=== PATIENT | male | born 1945 | race Caucasian/White ===

== ENCOUNTER 2017-09-13 18:35 | Inpatient (IN) | payer MEDICARE, OTHER ==
[~2017-09-13] VITALS: Ht 177.8 cm; Wt 86.2 kg
--- NOTE | 2017-09-13 19:45 | Emergency Room Report ---
History of Present Illness General Chief Complaint: Altered Level of Consciousness Source: Family Member, Medical Record (Michelle Henderson M.D.) Present Illness HPI 72-year-old male, unknown past medical history, coming from assisted living facility, with his friend, for altered mental status. Friend is not giving much information. He just brought the medication list which doesn't patient likely has hyperlipidemia and hypertension. No other history is able to be obtained as patient not answering any questions (Michelle Henderson M.D.) Allergies: Coded Allergies: PENICILLINS (Verified Allergy, Unknown, 09/13/17) Patient History Past Medical History: see triage record Past Surgical History: none Pertinent Family History: none Reviewed Nursing Documentation: PMH: Agreed; PSxH: Agreed (Michelle Henderson M.D. ) Nursing Documentation-PMH Hx Hypertension: Yes (Michelle Henderson M.D.) Review of Systems All Other Systems: limited - pt not answering any questions, altered (Michelle Henderson M.D.) Physical Exam Vital Signs Date Time Temp Pulse Resp B/P (MAP) Pulse Ox O2 Delivery O2 Flow Rate FiO2 09/13/17 18:45 103.3 116 20 154/78 89 Room Air 103.3 Sp02 EP Interpretation: reviewed, normal General Appearance: moderate distress, other - awake, lethargic, not answering questions Head: normocephalic, atraumatic Eyes: bilateral eye normal inspection, bilateral eye PERRL, bilateral eye EOMI ENT: normal ENT inspection, normal pharynx, normal voice, moist mucus membranes Neck: normal inspection, full range of motion, supple Respiratory: normal inspection, lungs clear, normal breath sounds, no respiratory distress, no retraction, no wheezing, speaking full sentences, chest symmetrical Cardiovascular #1: normal inspection, regular rate, rhythm, no edema, normal capillary refill Cardiovascular #2: 2+ radial (R), 2+ radial (L) Gastrointestinal: non-distended, no rebound, other - no grimace deep palpation Genitourinary: no CVA tenderness Musculoskeletal: other - FROM all ext Neurologic: other - aox2 but not answering questions in detailed manner, moving all four ext spont Psychiatric: other Skin: normal inspection, normal color, no rash, warm/dry, well hydrated, normal turgor (Michelle Henderson M.D.) Medical Decision Making Diagnostic Impression: Primary Impression: Altered level of consciousness Additional Impressions: Elevated troponin Encephalopathy acute Cirrhosis Acute febrile illness ER Course 72-year-old male with altered mental status DDX: Dehydrational actually disturbance hypovolemia ACS UTI pneumonia intracranial bleed or stroke Plan: Obtain labs, ua, EKG, CXR CT head ER course: Patient has been monitored during ED stay, HD stable he has not been febrile during his stay he is aox2, moving all ext spont, when asked if anything is bothering him, he says "nothing, I am not in pain" he has been sleeping comfortably I spoke with patient's sister who has been made aware that patient is in the ED Pt with slightly wide mediastinum on XR, will perform CTA chest Signed out to Dr Doan to fu CTA Disposition: Patient is to be admitted to Dr Simeon Please note that this Emergency Department Report was dictated using Springfretted instrument repairer technology software, occasionally this can lead to erroneous entry secondary to interpretation by the dictation equipment. EKG Diagnostic Results EP Interpretation: Yes Rate: Tachycardic Rhythm: NSR ST Segments: T-wave flattening in V6 ASA given to patient: No Rhythm Strip EP Interpretation: Yes Rate: 115 Rhythm: NSR, no PVCs, no ectopy Chest X-ray CXR: Ordered: Yes 1 view Indication: Altered mental status EP interpretation: Yes Interpretation: Cardiomegaly, slight widened mediastinum Impression: Cardiomegaly, slight widened mediastinum Electronically signed by Michelle Henderson MD (Michelle Henderosn M.D.) ER Course CTA of chest showed no evidence of pulmonary embolism, endovascular stent present, cholelithiasis. Patients CT and laboratory findings were discussed with Dr. Simeon. Labs Test 09/13/17 20:10 09/13/17 20:45 09/13/17 21:55 Urine Color Yesika Urine Appearance Slightly cloudy Urine pH 5 (4.5-8.0) Urine Specific [place] 1.025 (1.005-1.035) Urine Protein 3+ (NEGATIVE) Urine Glucose (UA) Negative (NEGATIVE) Urine Ketones 2+ (NEGATIVE) Urine Occult Blood 5+ (NEGATIVE) Urine Nitrite Negative (NEGATIVE) Urine Bilirubin 1+ (NEGATIVE) Urine Ictotest Positive Urine Urobilinogen 1 MG/DL (0.0-1.0) Urine Leukocyte Esterase 1+ (NEGATIVE) Urine RBC 5-10 /HPF (0 - 0) Urine WBC 0-2 /HPF (0 - 0) Urine Squamous Epithelial Cells None /LPF (NONE/OCC) Urine Amorphous Sediment Moderate /LPF (NONE) Urine Bacteria Few /HPF (NONE) Urine Opiates Screen Negative (NEGATIVE) Urine Barbiturates Screen Negative (NEGATIVE) Phencyclidine (PCP) Screen Negative (NEGATIVE) Urine Amphetamines Screen Negative (NEGATIVE) Urine Benzodiazepines Screen Negative (NEGATIVE) Urine Cocaine Screen Negative (NEGATIVE) Urine Marijuana (THC) Screen Negative (NEGATIVE) White Blood Count 11.4 K/UL (4.8-10.8) Red Blood Count 3.57 M/UL (4.70-6.10) Hemoglobin 11.9 G/DL (14.2-18.0) Hematocrit 34.8 % (42.0-52.0) Mean Corpuscular Volume 98 FL (80-99) Mean Corpuscular Hemoglobin 33.2 PG (27.0-31.0) Mean Corpuscular Hemoglobin Concent 34.0 G/DL (32.0-36.0) Red Cell Distribution Width 16.1 % (11.6-14.8) Platelet Count 91 K/UL (150-450) Mean Platelet Volume 5.9 FL (6.5-10.1) Neutrophils (%) (Auto) 86.9 % (45.0-75.0) Lymphocytes (%) (Auto) 5.0 % (20.0-45.0) Monocytes (%) (Auto) 7.5 % (1.0-10.0) Eosinophils (%) (Auto) 0.0 % (0.0-3.0) Basophils (%) (Auto) 0.6 % (0.0-2.0) Prothrombin Time 15.4 SEC (9.30-11.50) Prothromb Time International Ratio 1.5 (0.9-1.1) Activated Partial Thromboplast Time 33 SEC (23-33) Sodium Level 136 MMOL/L (136-145) Potassium Level 3.7 MMOL/L (3.5-5.1) Chloride Level 104 MMOL/L (98-107) Carbon Dioxide Level 21 MMOL/L (21-32) Anion Gap 11 mmol/L (5-15) Blood Urea Nitrogen 18 mg/dL (7-18) Creatinine 1.2 MG/DL (0.55-1.30) Estimat Glomerular Filtration Rate 59.9 mL/min (>60) Glucose Level 122 MG/DL (74-106) Calcium Level 8.5 MG/DL (8.5-10.1) Total Bilirubin 4.5 MG/DL (0.2-1.0) Direct Bilirubin 1.4 MG/DL (0.0-0.3) Aspartate Amino Transf (AST/SGOT) 72 U/L (15-37) Alanine Aminotransferase (ALT/SGPT) 33 U/L (12-78) Alkaline Phosphatase 124 U/L (46-116) Total Creatine Kinase 136 U/L (26-308) Troponin I 0.173 ng/mL (0.000-0.056) Pro-B-Type Natriuretic Peptide 763 pg/mL (0-125) Total Protein 7.2 G/DL (6.4-8.2) Albumin 2.2 G/DL (3.4-5.0) Globulin 5.0 g/dL Albumin/Globulin Ratio 0.4 (1.0-2.7) Salicylates Level < 0.2 ug/mL (2.8-20) Acetaminophen Level < 2 MCG/ML (10-30) Serum Alcohol < 3 mg/dL Lactic Acid Level 7.20 mmol/L (0.66-2.22) (Bk Doan MD) Last Vital Signs Date Time Temp Pulse Resp B/P (MAP) Pulse Ox O2 Delivery O2 Flow Rate FiO2 09/13/17 18:45 103.3 116 20 154/78 89 Room Air 103.3 (Michelle Henderson M.D.) Disposition: ADMITTED INPATIENT Condition: Serious Referrals: NOT CHOSEN BIRGTI/,REFERRING (PCP) Michelle Henderson M.D. Sep 13, 2017 19:45 Bk Doan MD Sep 14, 2017 04:15
[2017-09-13 20:30] LABS: APPEARANCE,URINE SLIGHTLY CLOUDY; BILIRUBIN, URINE 1+ (NEGATIVE); GLUCOSE, URINE (UA) NEGATIVE (NEGATIVE); KETONES,URINE 2+ (NEGATIVE); LEUKOCYTE ESTERASE ,URINE 1+ (NEGATIVE); NITRITE,URINE NEGATIVE (NEGATIVE); PH,URINE 5 (4.5-8.0); PROTEIN,URINE 3+ (NEGATIVE); UROBILINOGEN,URINE 1 MG/DL (0.0-1.0)
[2017-09-13 20:33] LABS: COLOR,URINE AMBER
[2017-09-13 21:10] VITALS: BP 147/76
[2017-09-13 21:13] LABS: HEMATOCRIT 34.8 % (42.0-52.0); HEMOGLOBIN 11.9 G/DL (14.2-18.0); MEAN CORPUSCULAR VOLUME 98 FL (80-99); PLATELET COUNT 91 K/UL (150-450); RED BLOOD COUNT 3.57 M/UL (4.70-6.10); RED CELL DISTRIBUTION WIDTH 16.1 % (11.6-14.8); WHITE BLOOD COUNT 11.4 K/UL (4.8-10.8)
[2017-09-13 21:14] LABS: BASOPHILS % (AUTO) 0.6 % (0.0-2.0); MONOCYTES % (AUTO) 7.5 % (1.0-10.0); NEUTROPHILS % (AUTO) 86.9 % (45.0-75.0)
[2017-09-13 21:25] LABS: ANION GAP 11 mmol/L (5-15); BLOOD UREA NITROGEN 18 mg/dL (7-18); CALCIUM 8.5 MG/DL (8.5-10.1); CARBON DIOXIDE 21 MMOL/L (21-32); CHLORIDE 104 MMOL/L (98-107); CREATININE 1.2 MG/DL (0.55-1.30); POTASSIUM 3.7 MMOL/L (3.5-5.1); SODIUM 136 MMOL/L (136-145)
[2017-09-13 21:30] LABS: INR 1.5 (0.9-1.1)
[2017-09-13] MEDS ORDERED: ZOFRAN4 M3 ORAL (21:37)
[2017-09-13] MEDS ORDERED: ATORVASTATIN CA40 MG ORAL (21:37)
[2017-09-13] MEDS ORDERED: OMEPRAZOLE20 M2 ORAL (21:37)
[2017-09-13] MEDS ORDERED: POLYETHYLENE GL17 GM ORAL (21:37)
[2017-09-13] MEDS ORDERED: OXYCODONE HCL5 M2 ORAL (21:37)
[2017-09-13] MEDS ORDERED: LISINOPRIL10 MG ORAL (21:37)
[2017-09-13] MEDS ORDERED: GABAPENTIN600 MG ORAL (21:37)
[2017-09-13] MEDS ORDERED: FLUTICASONE PRO16 G1 NASAL (21:37)
[2017-09-13 21:40] LABS: ALANINE AMINOTRANSFERASE 33 U/L (12-78); ALBUMIN 2.2 G/DL (3.4-5.0); ALBUMIN/GLOBULIN RATIO 0.4 (1.0-2.7); ALKALINE PHOSPHATASE 124 U/L (46-116); ASPARTATE AMINO TRANSFERASE 72 U/L (15-37); BILIRUBIN,TOTAL 4.5 MG/DL (0.2-1.0); CREATINE KINASE 136 U/L (26-308)
[2017-09-13 21:41] LABS: BILIRUBIN,DIRECT 1.4 MG/DL (0.0-0.3)
[2017-09-13] MEDS ORDERED: Isovue-370 150ml vial INJ PRN ×2 (21:45→22:30)
[2017-09-13] MEDS ORDERED: Lactulose 20gm/30ml UDC ORAL ONE (22:30)
[2017-09-13] MEDS ORDERED: Sodium Chloride 500ML 500 ML IV ONE (23:00)
[2017-09-13 23:09] VITALS: BP 129/98
[2017-09-13] MEDS ORDERED: Acetaminophen 500mg (ES) tab ORAL ONE (23:15)
[2017-09-13] MEDS ORDERED: Ascorbic Acid 500mg tab ORAL ONE (23:15)
[2017-09-14] VITALS (8 sets, daily range): BP systolic 105–139; BP diastolic 55–75
[2017-09-14 08:21] LABS: HEMOGLOBIN 11.9 G/DL (14.2-18.0); MEAN CORPUSCULAR VOLUME 100 FL (80-99); PLATELET COUNT 80 K/UL (150-450); RED BLOOD COUNT 3.61 M/UL (4.70-6.10); WHITE BLOOD COUNT 9.6 K/UL (4.8-10.8)
[2017-09-14 08:58] LABS: ANION GAP 8 mmol/L (5-15); BLOOD UREA NITROGEN 19 mg/dL (7-18); CARBON DIOXIDE 25 MMOL/L (21-32); CHLORIDE 103 MMOL/L (98-107); CREATININE 1.2 MG/DL (0.55-1.30); POTASSIUM 3.9 MMOL/L (3.5-5.1); SODIUM 135 MMOL/L (136-145)
[2017-09-14 08:59] LABS: AMMONIA 27 umol/L (11-32)
[2017-09-14 09:08] LABS: ALANINE AMINOTRANSFERASE 32 U/L (12-78); ALBUMIN 2.1 G/DL (3.4-5.0); ALBUMIN/GLOBULIN RATIO 0.4 (1.0-2.7); ALKALINE PHOSPHATASE 107 U/L (46-116); ASPARTATE AMINO TRANSFERASE 77 U/L (15-37); BILIRUBIN,TOTAL 3.8 MG/DL (0.2-1.0)
[2017-09-14 09:09] LABS: BILIRUBIN,DIRECT 1.3 MG/DL (0.0-0.3)
--- NOTE | 2017-09-14 10:58 | Diagnostic Imaging Report ---
Indication: Altered mental status Technique: spiral acquisitions obtained through the brain. Angled axial and coronal 5 x 5 mm slices were reconstructed. No IV contrast utilized. Radiation dose was minimized using automated exposure control Total dose length product 1484.22 mGycm. CTDIvol(s) 70.38 mGy Comparison: none FINDINGS: No acute hemorrhage or edema. No mass effect or midline shift. There is age-related enlargement of the ventricles and extra axial CSF spaces. There is periventricular deep white matter ischemic change. Normal hawley-white differentiation. Visualized orbits are unremarkable. There is complete opacification of the right frontal sinus and the contiguous anterior ethmoid air cell. There is also sphenoid sinus disease on the right.. Intact calvarium. IMPRESSION: Chronic and age-related changes. Negative for acute intracranial bleed or mass effect Sinus disease This agrees with the preliminary interpretation provided overnight by [facility] telerad[facility] service. The CT scanner at [facility] is accredited by the [employer] and the scans are performed using protocols designed to limit radiation exposure to as low as reasonably achievable to attain images of sufficient resolution adequate for diagnostic evaluation
--- NOTE | 2017-09-14 10:59 | Diagnostic Imaging Report ---
Indication: Chest pain Technique: One view of the chest Comparison: none Findings: The heart is enlarged. The aorta is tortuous and ectatic. The lungs and pleural spaces are clear Impression: Cardiomegaly No acute process
--- NOTE | 2017-09-14 12:01 | History and Physical Report ---
DATE OF ADMISSION: 09/13/2017 HISTORY OF PRESENT ILLNESS: The patient basically is here because of altered mental status. The patient basically also is oriented x2 and also complaining of mild constipation. The patient also was febrile in the ER. He is admitted for possible urinary tract infection. The patient also was found to have a gallstone and stent in the abdominal aortic and bilateral iliac area. The patient apparently also has a history of cirrhosis and also being admitted for possible encephalopathy. The patient also has elevated bilirubin and borderline elevated troponin and low platelets and borderline LFTs. The patient denies shortness of breath. Denies cough. Denies nausea, vomiting, or diarrhea. Denies any abdominal pain. The patient is somewhat confused, possible encephalopathy, and need to rule out urinary tract infection and cannot get more reliable history from the patient. PAST MEDICAL HISTORY: Hypertension, neuropathy, hyperlipidemia, gastroesophageal reflux disease, chronic pain syndrome, constipation, and cirrhosis. PAST SURGICAL HISTORY: AAA repair. MEDICATIONS: Lipitor, , gabapentin, lisinopril, omeprazole, Zofran, and polyethylene glycol. ALLERGIES: Penicillin. FAMILY HISTORY: Noncontributory. SOCIAL HISTORY: Denies smoking, alcohol, or illicit drugs. REVIEW OF SYSTEMS: HEENT: Denies headaches. Denies any vision problems. RESPIRATORY: Denies shortness of breath. Denies cough. CARDIOVASCULAR: Denies chest pain. Denies orthopnea. GASTROINTESTINAL: Denies nausea, vomiting, or diarrhea. Does have constipation occasionally. EXTREMITY: He does have chronic pain syndrome, nothing acute. CENTRAL NERVOUS SYSTEM: No change in vision or speech pattern, but is more confused than his baseline. PHYSICAL EXAMINATION: VITAL SIGNS: Temperature 98.8, pulse is 94, and blood pressure 137/64. HEENT: PERRLA. NECK: Supple. No lymphadenopathy. CHEST: Clear to auscultation. GASTROINTESTINAL: Soft, nontender, and nondistended. ABDOMEN: Soft. No organomegaly. EXTREMITIES: 1+ edema. The patient has a slight rash on the right leg, which is apparently chronic. NEUROLOGIC: Generalized weakness. Oriented x2. Reflexes are equal on both sides. LABORATORY DATA: WBC of 11.4, hemoglobin 11.9, and platelets of 91,000. Sodium 137, potassium 3.7, chloride 104, BUN of 18, creatinine 1.2, and glucose 132. Lactic acid 5.5. Total bilirubin 4.7. AST of 72, ALT of 33, and alkaline phosphatase of 124. Troponin 0.173. WBCs in the urine 0 to 2. ASSESSMENT AND PLAN: 1. Encephalopathy. 2. Cirrhosis. 3. Elevated liver function tests. 4. Febrile in the ER. 5. The patient is currently DNR. 6. Borderline elevated troponin and borderline low platelets. 7. I have asked the following doctors to see the patient for the above-mentioned diagnoses and treatment. Namely, Dr. Barrientos, Dr. Woody, Dr. Hutchison, Dr. Parson, and Dr. Dolan for etiology of altered mental status as well as elevated troponin and possible urinary tract infection and also for the workup of the elevated LFTs. Julio C Ward M.D. DR: HASEEB JOB#: [id number] CC:
[2017-09-14] MEDS ORDERED: Vancomycin 1.5 GM/D5W 250ML IVPB ONE (12:30)
--- NOTE | 2017-09-14 13:07 | Cardiology Report ---
APPROVED REPORT EKG Measurement Heart [id number] Sinus tachycardia with premature atrial complexes Abnormal ECG
--- NOTE | 2017-09-14 13:39 | Consultation ---
History of Present Illness General Date patient seen: Sep 14, 2017 Chief Complaint: Altered Level of Consciousness Present Illness HPI 72-year-old male, past medical history,was bib friend from assisted living facility, for altered mental status. the pt was confused and disoriented in ER. the pt is more alert however still has waxing and waning of consciousness. the pt is forgetful however was able to provide hx and answer the questions Allergies: Coded Allergies: PENICILLINS (Verified Allergy, Unknown, 09/13/17) Medication History Scheduled Atorvastatin Calcium* (Atorvastatin Calcium*), 40 MG ORAL BEDTIME, (Reported) Fluticasone Propionate* (Fluticasone Propionate*), 1 SPRAY NASAL TWICE A DAY, ( Reported) Gabapentin* (Gabapentin*), 600 MG ORAL THREE TIMES A DAY, (Reported) Lisinopril* (Lisinopril*), 20 MG ORAL DAILY, (Reported) Omeprazole (Omeprazole), 20 MG ORAL DAILY, (Reported) Scheduled PRN Ondansetron* (Zofran*), 4 MG ORAL Q6H PRN for Nausea & Vomiting, (Reported) Oxycodone Hcl* (Oxycodone Hcl*), 5 MG ORAL Q8HR PRN for For Pain, (Reported) Polyethylene Glycol 3350* (Polyethylene Glycol 3350*), 17 GM ORAL DAILY PRN for Constipation, (Reported) Patient History Limited by: medical condition History Provided By: Patient, Medical Record, PMD Healthcare decision maker Sister Resuscitation status Do Not Resuscitate Advanced Directive on File No Past Medical/Surgical History Past Medical/Surgical History: (1) Cirrhosis (2) Encephalopathy acute (3) Acute febrile illness (4) Altered level of consciousness (5) Elevated troponin Review of Systems Psychiatric: Reports: anxiety Physical Exam General Appearance: no apparent distress - Didn't know the month , alert Last 24 Hour Vital Signs Date Time Temp Pulse Resp B/P (MAP) Pulse Ox O2 Delivery O2 Flow Rate FiO2 09/14/17 12:01 99.7 80 19 106/57 98 Room Air 99.7 09/14/17 08:04 98.9 98 19 105/63 94 Room Air 98.9 09/14/17 08:00 90 09/14/17 04:00 98.4 90 22 139/75 96 Room Air 98.4 09/14/17 04:00 86 09/14/17 03:30 98.8 94 20 130/56 96 Room Air 98.8 09/14/17 03:11 98.8 94 20 130/56 96 Room Air 98.8 09/14/17 01:34 99.8 09/14/17 01:33 99.8 83 24 123/55 97 Room Air 99.8 09/14/17 00:17 98.8 94 26 137/64 99 Room Air 98.8 09/13/17 23:31 102.2 09/13/17 23:09 102.2 110 15 129/98 97 Room Air 102.2 09/13/17 21:10 99.0 108 16 147/76 97 Room Air 99.0 09/13/17 18:45 103.3 116 20 154/78 89 Room Air 103.3 Intake and Output 09/13/17 09/14/17 19:00 07:00 Intake Total 1165 ml Output Total 220 ml Balance 945 ml Intake IV Total 1165 ml Output Urine Total 220 ml # Voids 1 Laboratory Tests Test 09/13/17 20:10 09/13/17 20:45 09/13/17 21:55 09/14/17 07:54 Urine Color Yesika Urine Appearance Slightly cloudy Urine pH 5 (4.5-8.0) Urine Specific [place] 1.025 (1.005-1.035) Urine Protein 3+ (NEGATIVE) H Urine Glucose (UA) Negative (NEGATIVE) Urine Ketones 2+ (NEGATIVE) H Urine Occult Blood 5+ (NEGATIVE) H Urine Nitrite Negative (NEGATIVE) Urine Bilirubin 1+ (NEGATIVE) H Urine Ictotest Positive Urine Urobilinogen 1 MG/DL (0.0-1.0) H Urine Leukocyte Esterase 1+ (NEGATIVE) H Urine RBC 5-10 /HPF (0 - 0) H Urine WBC 0-2 /HPF (0 - 0) Urine Squamous Epithelial Cells None /LPF (NONE/OCC) Urine Amorphous Sediment Moderate /LPF (NONE) H Urine Bacteria Few /HPF (NONE) Urine Opiates Screen Negative (NEGATIVE) Urine Barbiturates Screen Negative (NEGATIVE) Phencyclidine (PCP) Screen Negative (NEGATIVE) Urine Amphetamines Screen Negative (NEGATIVE) Urine Benzodiazepines Screen Negative (NEGATIVE) Urine Cocaine Screen Negative (NEGATIVE) Urine Marijuana (THC) Screen Negative (NEGATIVE) White Blood Count 11.4 K/UL (4.8-10.8) H 9.6 K/UL (4.8-10.8) Red Blood Count 3.57 M/UL (4.70-6.10) L 3.61 M/UL (4.70-6.10) L Hemoglobin 11.9 G/DL (14.2-18.0) L 11.9 G/DL (14.2-18.0) L Hematocrit 34.8 % (42.0-52.0) L 36.0 % (42.0-52.0) L Mean Corpuscular Volume 98 FL (80-99) 100 FL (80-99) H Mean Corpuscular Hemoglobin 33.2 PG (27.0-31.0) H 32.8 PG (27.0-31.0) H Mean Corpuscular Hemoglobin Concent 34.0 G/DL (32.0-36.0) 32.9 G/DL (32.0-36.0) Red Cell Distribution Width 16.1 % (11.6-14.8) H 16.0 % (11.6-14.8) H Platelet Count 91 K/UL (150-450) L 80 K/UL (150-450) L Mean Platelet Volume 5.9 FL (6.5-10.1) L 6.4 FL (6.5-10.1) L Neutrophils (%) (Auto) 86.9 % (45.0-75.0) H % (45.0-75.0) Lymphocytes (%) (Auto) 5.0 % (20.0-45.0) L % (20.0-45.0) Monocytes (%) (Auto) 7.5 % (1.0-10.0) % (1.0-10.0) Eosinophils (%) (Auto) 0.0 % (0.0-3.0) % (0.0-3.0) Basophils (%) (Auto) 0.6 % (0.0-2.0) % (0.0-2.0) Prothrombin Time 15.4 SEC (9.30-11.50) H Prothromb Time International Ratio 1.5 (0.9-1.1) H Activated Partial Thromboplast Time 33 SEC (23-33) Sodium Level 136 MMOL/L (136-145) 135 MMOL/L (136-145) L Potassium Level 3.7 MMOL/L (3.5-5.1) 3.9 MMOL/L (3.5-5.1) Chloride Level 104 MMOL/L (98-107) 103 MMOL/L (98-107) Carbon Dioxide Level 21 MMOL/L (21-32) 25 MMOL/L (21-32) Anion Gap 11 mmol/L (5-15) 8 mmol/L (5-15) Blood Urea Nitrogen 18 mg/dL (7-18) 19 mg/dL (7-18) H Creatinine 1.2 MG/DL (0.55-1.30) 1.2 MG/DL (0.55-1.30) Estimat Glomerular Filtration Rate 59.9 mL/min (>60) 59.9 mL/min (>60) Glucose Level 122 MG/DL (74-106) H 104 MG/DL (74-106) Lactic Acid Level 5.50 mmol/L (0.4-2.0) H 7.20 mmol/L (0.66-2.22) H 3.40 mmol/L (0.4-2.0) H Calcium Level 8.5 MG/DL (8.5-10.1) 8.0 MG/DL (8.5-10.1) L Total Bilirubin 4.5 MG/DL (0.2-1.0) H 3.8 MG/DL (0.2-1.0) H Direct Bilirubin 1.4 MG/DL (0.0-0.3) H 1.3 MG/DL (0.0-0.3) H Aspartate Amino Transf (AST/SGOT) 72 U/L (15-37) H 77 U/L (15-37) H Alanine Aminotransferase (ALT/SGPT) 33 U/L (12-78) 32 U/L (12-78) Alkaline Phosphatase 124 U/L (46-116) H 107 U/L (46-116) Total Creatine Kinase 136 U/L (26-308) Troponin I 0.173 ng/mL (0.000-0.056) Pro-B-Type Natriuretic Peptide 763 pg/mL (0-125) H Total Protein 7.2 G/DL (6.4-8.2) 7.0 G/DL (6.4-8.2) Albumin 2.2 G/DL (3.4-5.0) L 2.1 G/DL (3.4-5.0) L Globulin 5.0 g/dL 4.9 g/dL Albumin/Globulin Ratio 0.4 (1.0-2.7) L 0.4 (1.0-2.7) L Salicylates Level < 0.2 ug/mL (2.8-20) L Acetaminophen Level < 2 MCG/ML (10-30) L Serum Alcohol < 3 mg/dL Differential Total Cells Counted 100 Neutrophils % (Manual) 90 % (45-75) H Lymphocytes % (Manual) 8 % (20-45) L Monocytes % (Manual) 2 % (1-10) Eosinophils % (Manual) 0 % (0-3) Basophils % (Manual) 0 % (0-2) Band Neutrophils 0 % (0-8) Platelet Estimate Decreased L Platelet Morphology Normal Red Blood Cell Morphology Normal Ammonia 27 umol/L (11-32) Test 09/14/17 11:50 Lactic Acid Level 2.70 mmol/L (0.66-2.22) H Height (Feet): 5 Height (Inches): 10.00 Weight (Pounds): 190 Medications Current Medications Medications (Trade) Dose Ordered Sig/Zia Route PRN Reason Start Time Stop Time Status Last Admin Dose Admin Iopamidol (Isovue-370 150ml) 150 ml NOW PRN INJ Radiology Procedure 09/13/17 21:45 09/15/17 21:32 Iopamidol (Isovue-370 150ml) 150 ml NOW PRN INJ Radiology Procedure 09/13/17 22:30 Levofloxacin (Levaquin) 750 mg Q24H ORAL 09/14/17 20:00 09/21/17 19:59 Sodium Chloride 1,000 ml @ 65 mls/hr [id number] IV 09/14/17 05:00 10/14/17 04:59 09/14/17 05:00 Vancomycin HCl (Vanco rx to dose) 1 ea DAILY PRN MISC Per rx protocol 09/14/17 11:30 10/14/17 11:29 Vancomycin HCl/ Dextrose 250 ml @ 125 mls/hr ONCE ONCE IVPB 09/14/17 12:30 09/14/17 14:29 09/14/17 13:15 Vancomycin HCl/ Dextrose 250 ml @ 125 mls/hr Q24H IVPB 09/15/17 13:00 09/20/17 12:59 Assessment/Plan Assessment/Plan Encephalopathy improving Anxiety d/o -Yusuf Joy M.D. Sep 14, 2017 13:39
--- NOTE | 2017-09-14 14:06 | GI Initial Consult Note ---
History of Present Illness General Date patient seen: Sep 14, 2017 Time patient seen: 13:57 Reason for Hospitalization: Altered Level of Consciousness Referring physician: NINA Reason for Consultation: ABNORMAL LFTs Present Illness HPI 72-year-old male, unknown past medical history, coming from assisted living facility, with his friend, for altered mental status. Friend is not giving much information. He just brought the medication list which doesn't patient likely has hyperlipidemia and hypertension. No other history is able to be obtained as patient not answering any questions. GI consulted for abnormal LFTs, AMS. Pt seen, awake A&Ox4 NAD with no active s /sx of N/V/D. Patient normally seen at the [facility]. Presents today with mild anemia, thrombocytopenia, hyperbilirubinemia, elevated troponin levels, AST and lactic acid levels. The patient denies any ETOH use. States he has history of fatty liver. Normal ammonia levels. Unknown history of endoscopy / colonoscopy. Home Meds Reported Medications Ondansetron* (ZOFRAN*) 4 Mg Tablet, 4 MG ORAL Q6H PRN for Nausea & Vomiting, TAB 09/13/17 Polyethylene Glycol 3350* (POLYETHYLENE GLYCOL 3350*) 17 Gm Powd.pack, 17 GM ORAL DAILY PRN for Constipation, PACKET 09/13/17 Oxycodone Hcl* (OXYCODONE HCL*) 5 Mg Capsule, 5 MG ORAL Q8HR PRN for For Pain, # 30 CAP 0 Refills 09/13/17 Lisinopril* (LISINOPRIL*) 10 Mg Tablet, 20 MG ORAL DAILY, TAB 09/13/17 Gabapentin* (GABAPENTIN*) 600 Mg Tablet, 600 MG ORAL THREE TIMES A DAY, TAB 09/13/17 Atorvastatin Calcium* (ATORVASTATIN CALCIUM*) 40 Mg Tablet, 40 MG ORAL BEDTIME, TAB 09/13/17 Fluticasone Propionate* (FLUTICASONE PROPIONATE*) 16 Gm [place].susp, 1 SPRAY NASAL TWICE A DAY, #16 GM 09/13/17 Omeprazole (OMEPRAZOLE) 20 Mg Capsule.dr, 20 MG ORAL DAILY, CAP 09/13/17 Med list reviewed/reconciled: Yes Allergies: Coded Allergies: PENICILLINS (Verified Allergy, Unknown, 09/13/17) Patient History History Provided By: Patient, Medical Record PMH Narrative HTN Social History: Denies: smoking, alcohol use, drug use, other Review of Systems All Other Systems: negative except mentioned in HPI Physical Exam Vital Signs Date Time Temp Pulse Resp B/P (MAP) Pulse Ox O2 Delivery O2 Flow Rate FiO2 09/13/17 18:45 103.3 116 20 154/78 89 Room Air 103.3 Sp02 EP Interpretation: reviewed, normal Labs Laboratory Tests Test 09/13/17 20:10 09/13/17 20:45 09/13/17 21:55 09/14/17 07:54 Urine Color Yeskia Urine Appearance Slightly cloudy Urine pH 5 (4.5-8.0) Urine Specific [place] 1.025 (1.005-1.035) Urine Protein 3+ (NEGATIVE) H Urine Glucose (UA) Negative (NEGATIVE) Urine Ketones 2+ (NEGATIVE) H Urine Occult Blood 5+ (NEGATIVE) H Urine Nitrite Negative (NEGATIVE) Urine Bilirubin 1+ (NEGATIVE) H Urine Ictotest Positive Urine Urobilinogen 1 MG/DL (0.0-1.0) H Urine Leukocyte Esterase 1+ (NEGATIVE) H Urine RBC 5-10 /HPF (0 - 0) H Urine WBC 0-2 /HPF (0 - 0) Urine Squamous Epithelial Cells None /LPF (NONE/OCC) Urine Amorphous Sediment Moderate /LPF (NONE) H Urine Bacteria Few /HPF (NONE) Urine Opiates Screen Negative (NEGATIVE) Urine Barbiturates Screen Negative (NEGATIVE) Phencyclidine (PCP) Screen Negative (NEGATIVE) Urine Amphetamines Screen Negative (NEGATIVE) Urine Benzodiazepines Screen Negative (NEGATIVE) Urine Cocaine Screen Negative (NEGATIVE) Urine Marijuana (THC) Screen Negative (NEGATIVE) White Blood Count 11.4 K/UL (4.8-10.8) H 9.6 K/UL (4.8-10.8) Red Blood Count 3.57 M/UL (4.70-6.10) L 3.61 M/UL (4.70-6.10) L Hemoglobin 11.9 G/DL (14.2-18.0) L 11.9 G/DL (14.2-18.0) L Hematocrit 34.8 % (42.0-52.0) L 36.0 % (42.0-52.0) L Mean Corpuscular Volume 98 FL (80-99) 100 FL (80-99) H Mean Corpuscular Hemoglobin 33.2 PG (27.0-31.0) H 32.8 PG (27.0-31.0) H Mean Corpuscular Hemoglobin Concent 34.0 G/DL (32.0-36.0) 32.9 G/DL (32.0-36.0) Red Cell Distribution Width 16.1 % (11.6-14.8) H 16.0 % (11.6-14.8) H Platelet Count 91 K/UL (150-450) L 80 K/UL (150-450) L Mean Platelet Volume 5.9 FL (6.5-10.1) L 6.4 FL (6.5-10.1) L Neutrophils (%) (Auto) 86.9 % (45.0-75.0) H % (45.0-75.0) Lymphocytes (%) (Auto) 5.0 % (20.0-45.0) L % (20.0-45.0) Monocytes (%) (Auto) 7.5 % (1.0-10.0) % (1.0-10.0) Eosinophils (%) (Auto) 0.0 % (0.0-3.0) % (0.0-3.0) Basophils (%) (Auto) 0.6 % (0.0-2.0) % (0.0-2.0) Prothrombin Time 15.4 SEC (9.30-11.50) H Prothromb Time International Ratio 1.5 (0.9-1.1) H Activated Partial Thromboplast Time 33 SEC (23-33) Sodium Level 136 MMOL/L (136-145) 135 MMOL/L (136-145) L Potassium Level 3.7 MMOL/L (3.5-5.1) 3.9 MMOL/L (3.5-5.1) Chloride Level 104 MMOL/L (98-107) 103 MMOL/L (98-107) Carbon Dioxide Level 21 MMOL/L (21-32) 25 MMOL/L (21-32) Anion Gap 11 mmol/L (5-15) 8 mmol/L (5-15) Blood Urea Nitrogen 18 mg/dL (7-18) 19 mg/dL (7-18) H Creatinine 1.2 MG/DL (0.55-1.30) 1.2 MG/DL (0.55-1.30) Estimat Glomerular Filtration Rate 59.9 mL/min (>60) 59.9 mL/min (>60) Glucose Level 122 MG/DL (74-106) H 104 MG/DL (74-106) Lactic Acid Level 5.50 mmol/L (0.4-2.0) H 7.20 mmol/L (0.66-2.22) H 3.40 mmol/L (0.4-2.0) H Calcium Level 8.5 MG/DL (8.5-10.1) 8.0 MG/DL (8.5-10.1) L Total Bilirubin 4.5 MG/DL (0.2-1.0) H 3.8 MG/DL (0.2-1.0) H Direct Bilirubin 1.4 MG/DL (0.0-0.3) H 1.3 MG/DL (0.0-0.3) H Aspartate Amino Transf (AST/SGOT) 72 U/L (15-37) H 77 U/L (15-37) H Alanine Aminotransferase (ALT/SGPT) 33 U/L (12-78) 32 U/L (12-78) Alkaline Phosphatase 124 U/L (46-116) H 107 U/L (46-116) Total Creatine Kinase 136 U/L (26-308) Troponin I 0.173 ng/mL (0.000-0.056) Pro-B-Type Natriuretic Peptide 763 pg/mL (0-125) H Total Protein 7.2 G/DL (6.4-8.2) 7.0 G/DL (6.4-8.2) Albumin 2.2 G/DL (3.4-5.0) L 2.1 G/DL (3.4-5.0) L Globulin 5.0 g/dL 4.9 g/dL Albumin/Globulin Ratio 0.4 (1.0-2.7) L 0.4 (1.0-2.7) L Salicylates Level < 0.2 ug/mL (2.8-20) L Acetaminophen Level < 2 MCG/ML (10-30) L Serum Alcohol < 3 mg/dL Differential Total Cells Counted 100 Neutrophils % (Manual) 90 % (45-75) H Lymphocytes % (Manual) 8 % (20-45) L Monocytes % (Manual) 2 % (1-10) Eosinophils % (Manual) 0 % (0-3) Basophils % (Manual) 0 % (0-2) Band Neutrophils 0 % (0-8) Platelet Estimate Decreased L Platelet Morphology Normal Red Blood Cell Morphology Normal Ammonia 27 umol/L (11-32) Test 09/14/17 11:50 Lactic Acid Level 2.70 mmol/L (0.66-2.22) H General Appearance: well appearing, no apparent distress, alert Head: normocephalic EENT: PERRL/EOMI, normal ENT inspection Neck: supple Respiratory: normal breath sounds, no respiratory distress Cardiovascular: normal rate Gastrointestinal: normal inspection, non tender, soft, normal bowel sounds, non -distended Rectal: deferred Genitourinary: deferred Musculoskeletal: normal inspection, back normal Neurologic: normal inspection, alert, oriented x3, responsive Psychiatric: normal inspection, judgement/insight normal, memory normal Skin: normal inspection, normal color, no rash, warm/dry, palpation normal, well hydrated Lymphatic: normal inspection, no adenopathy Current Medications Current Medications Medications (Trade) Dose Ordered Sig/Zia Route PRN Reason Start Time Stop Time Status Last Admin Dose Admin Iopamidol (Isovue-370 150ml) 150 ml NOW PRN INJ Radiology Procedure 09/13/17 21:45 09/15/17 21:32 Iopamidol (Isovue-370 150ml) 150 ml NOW PRN INJ Radiology Procedure 09/13/17 22:30 Levofloxacin (Levaquin) 750 mg Q24H ORAL 09/14/17 20:00 09/21/17 19:59 Quetiapine Fumarate (SEROquel) 25 mg EVERY 6 HOURS PRN ORAL For Anxiety 09/14/17 13:45 10/14/17 13:44 UNV Sodium Chloride 1,000 ml @ 65 mls/hr [id number] IV 09/14/17 05:00 10/14/17 04:59 09/14/17 05:00 Vancomycin HCl (Vanco rx to dose) 1 ea DAILY PRN MISC Per rx protocol 09/14/17 11:30 10/14/17 11:29 Vancomycin HCl/ Dextrose 250 ml @ 125 mls/hr ONCE ONCE IVPB 09/14/17 12:30 09/14/17 14:29 09/14/17 13:15 Vancomycin HCl/ Dextrose 250 ml @ 125 mls/hr Q24H IVPB 09/15/17 13:00 09/20/17 12:59 GI: Plan Problems: (1) Cirrhosis (2) Encephalopathy acute (3) Altered level of consciousness (4) Elevated troponin Plan encephalopathy resolved at this time utox negative ammonia levels WNL elevated lactic acid levels >> downtrending elevated AST elevated troponin levels ?cirrhosis pending abdominal US r/o any biliary obstruction >> ok for low sodium diet after imaging study trend AST >> avoid tylenol and/or statins anemia work up OB stool r/o GI bleed monitor H&H, prn transfusions bowel regime ppi fu labs Discussed with Dr. Woody. Thank you for this patient referral, we will follow. The patient was seen and examined at bedside and all new and available data was reviewed in the patients chart. I agree with the above findings, impression and plan. (Patient seen earlier today. Signature stamp does not reflect patient encounter time.). - MD Dee Salter,[facility] [employer] Sep 14, 2017 14:06
--- NOTE | 2017-09-14 15:14 | Cardiac Electrophysiology PN ---
Subjective Subjective [id number] Objective Last 24 Hour Vital Signs Date Time Temp Pulse Resp B/P (MAP) Pulse Ox O2 Delivery O2 Flow Rate FiO2 09/14/17 13:25 98.6 98.6 09/14/17 12:01 99.7 80 19 106/57 98 Room Air 99.7 09/14/17 12:00 83 09/14/17 08:04 98.9 98 19 105/63 94 Room Air 98.9 09/14/17 08:00 90 09/14/17 04:00 98.4 90 22 139/75 96 Room Air 98.4 09/14/17 04:00 86 09/14/17 03:30 98.8 94 20 130/56 96 Room Air 98.8 09/14/17 03:11 98.8 94 20 130/56 96 Room Air 98.8 09/14/17 01:34 99.8 09/14/17 01:33 99.8 83 24 123/55 97 Room Air 99.8 09/14/17 00:17 98.8 94 26 137/64 99 Room Air 98.8 09/13/17 23:31 102.2 09/13/17 23:09 102.2 110 15 129/98 97 Room Air 102.2 09/13/17 21:10 99.0 108 16 147/76 97 Room Air 99.0 09/13/17 18:45 103.3 116 20 154/78 89 Room Air 103.3 Intake and Output 09/13/17 09/14/17 19:00 07:00 Intake Total 1165 ml Output Total 220 ml Balance 945 ml Intake IV Total 1165 ml Output Urine Total 220 ml # Voids 1 Laboratory Tests Test 09/13/17 20:10 09/13/17 20:45 09/13/17 21:55 09/14/17 07:54 Urine Color Yesika Urine Appearance Slightly cloudy Urine pH 5 (4.5-8.0) Urine Specific [place] 1.025 (1.005-1.035) Urine Protein 3+ (NEGATIVE) H Urine Glucose (UA) Negative (NEGATIVE) Urine Ketones 2+ (NEGATIVE) H Urine Occult Blood 5+ (NEGATIVE) H Urine Nitrite Negative (NEGATIVE) Urine Bilirubin 1+ (NEGATIVE) H Urine Ictotest Positive Urine Urobilinogen 1 MG/DL (0.0-1.0) H Urine Leukocyte Esterase 1+ (NEGATIVE) H Urine RBC 5-10 /HPF (0 - 0) H Urine WBC 0-2 /HPF (0 - 0) Urine Squamous Epithelial Cells None /LPF (NONE/OCC) Urine Amorphous Sediment Moderate /LPF (NONE) H Urine Bacteria Few /HPF (NONE) Urine Opiates Screen Negative (NEGATIVE) Urine Barbiturates Screen Negative (NEGATIVE) Phencyclidine (PCP) Screen Negative (NEGATIVE) Urine Amphetamines Screen Negative (NEGATIVE) Urine Benzodiazepines Screen Negative (NEGATIVE) Urine Cocaine Screen Negative (NEGATIVE) Urine Marijuana (THC) Screen Negative (NEGATIVE) White Blood Count 11.4 K/UL (4.8-10.8) H 9.6 K/UL (4.8-10.8) Red Blood Count 3.57 M/UL (4.70-6.10) L 3.61 M/UL (4.70-6.10) L Hemoglobin 11.9 G/DL (14.2-18.0) L 11.9 G/DL (14.2-18.0) L Hematocrit 34.8 % (42.0-52.0) L 36.0 % (42.0-52.0) L Mean Corpuscular Volume 98 FL (80-99) 100 FL (80-99) H Mean Corpuscular Hemoglobin 33.2 PG (27.0-31.0) H 32.8 PG (27.0-31.0) H Mean Corpuscular Hemoglobin Concent 34.0 G/DL (32.0-36.0) 32.9 G/DL (32.0-36.0) Red Cell Distribution Width 16.1 % (11.6-14.8) H 16.0 % (11.6-14.8) H Platelet Count 91 K/UL (150-450) L 80 K/UL (150-450) L Mean Platelet Volume 5.9 FL (6.5-10.1) L 6.4 FL (6.5-10.1) L Neutrophils (%) (Auto) 86.9 % (45.0-75.0) H % (45.0-75.0) Lymphocytes (%) (Auto) 5.0 % (20.0-45.0) L % (20.0-45.0) Monocytes (%) (Auto) 7.5 % (1.0-10.0) % (1.0-10.0) Eosinophils (%) (Auto) 0.0 % (0.0-3.0) % (0.0-3.0) Basophils (%) (Auto) 0.6 % (0.0-2.0) % (0.0-2.0) Prothrombin Time 15.4 SEC (9.30-11.50) H Prothromb Time International Ratio 1.5 (0.9-1.1) H Activated Partial Thromboplast Time 33 SEC (23-33) Sodium Level 136 MMOL/L (136-145) 135 MMOL/L (136-145) L Potassium Level 3.7 MMOL/L (3.5-5.1) 3.9 MMOL/L (3.5-5.1) Chloride Level 104 MMOL/L (98-107) 103 MMOL/L (98-107) Carbon Dioxide Level 21 MMOL/L (21-32) 25 MMOL/L (21-32) Anion Gap 11 mmol/L (5-15) 8 mmol/L (5-15) Blood Urea Nitrogen 18 mg/dL (7-18) 19 mg/dL (7-18) H Creatinine 1.2 MG/DL (0.55-1.30) 1.2 MG/DL (0.55-1.30) Estimat Glomerular Filtration Rate 59.9 mL/min (>60) 59.9 mL/min (>60) Glucose Level 122 MG/DL (74-106) H 104 MG/DL (74-106) Lactic Acid Level 5.50 mmol/L (0.4-2.0) H 7.20 mmol/L (0.66-2.22) H 3.40 mmol/L (0.4-2.0) H Calcium Level 8.5 MG/DL (8.5-10.1) 8.0 MG/DL (8.5-10.1) L Total Bilirubin 4.5 MG/DL (0.2-1.0) H 3.8 MG/DL (0.2-1.0) H Direct Bilirubin 1.4 MG/DL (0.0-0.3) H 1.3 MG/DL (0.0-0.3) H Aspartate Amino Transf (AST/SGOT) 72 U/L (15-37) H 77 U/L (15-37) H Alanine Aminotransferase (ALT/SGPT) 33 U/L (12-78) 32 U/L (12-78) Alkaline Phosphatase 124 U/L (46-116) H 107 U/L (46-116) Total Creatine Kinase 136 U/L (26-308) Troponin I 0.173 ng/mL (0.000-0.056) Pro-B-Type Natriuretic Peptide 763 pg/mL (0-125) H Total Protein 7.2 G/DL (6.4-8.2) 7.0 G/DL (6.4-8.2) Albumin 2.2 G/DL (3.4-5.0) L 2.1 G/DL (3.4-5.0) L Globulin 5.0 g/dL 4.9 g/dL Albumin/Globulin Ratio 0.4 (1.0-2.7) L 0.4 (1.0-2.7) L Salicylates Level < 0.2 ug/mL (2.8-20) L Acetaminophen Level < 2 MCG/ML (10-30) L Serum Alcohol < 3 mg/dL Differential Total Cells Counted 100 Neutrophils % (Manual) 90 % (45-75) H Lymphocytes % (Manual) 8 % (20-45) L Monocytes % (Manual) 2 % (1-10) Eosinophils % (Manual) 0 % (0-3) Basophils % (Manual) 0 % (0-2) Band Neutrophils 0 % (0-8) Platelet Estimate Decreased L Platelet Morphology Normal Red Blood Cell Morphology Normal Ammonia 27 umol/L (11-32) Test 09/14/17 11:50 Lactic Acid Level 2.70 mmol/L (0.66-2.22) H Evan Dolan MD Sep 14, 2017 15:14
--- NOTE | 2017-09-14 15:35 | Consultation ---
Consult Note Consult Note NEUROLOGY CONSULTATION: Full note dictated #[id number] 72 y/o, LH, CM with PH of hypertension, dyslipidemia, AAA repair, neuropathy, gastroesophageal reflux disease, chronic pain syndrome involving his legs and cirrhosis of the liver. He was hospitalized for AMS. He tells me that his right leg has been red and swollen recently. ON EXAM: Disoriented to exact date. Problems with memory. Globally diminished DTRs. CT of brain with no acute path. IMPRESSION: Toxic/metabolic encephalopathy - now resolving. REC: Continue present Rx. W/U for other encephalopathy Observe. Priya Parson M.D., M.S.P.H. PRIYA PARSON Sep 14, 2017 15:35
--- NOTE | 2017-09-14 16:49 | Diagnostic Imaging Report ---
INDICATION: Chest and abdominal pain TECHNIQUE: IV administration nonionic contrast Spiral acquisitions obtained through the chest, abdomen, and pelvis Multiplanar reconstructions were generated. Total dose length product 3079 mGycm. CTDIvol(s) 12, 100, 54, 48, 30 mGy. Radiation dose was minimized using automated exposure control Note that CTA chest abdomen pelvis was ordered. However, a shunt was uncooperative, moving throughout the exam, resulting in IV infiltration on the first attempt at injection, and power injector stopping 3 times during injection on the second attempt due to patient motion making timed bolus and possible. Therefore, exam is chest abdomen pelvis with limited contrast opacification. COMPARISON: none FINDINGS Exam is limited due to patient motion and inability to cooperate. Chest: A tiny bulla is seen in the superior segment of the left lower lobe. There are basilar dependent atelectatic changes bilaterally. No acute infiltrates, effusions, congestion, masses, or nodules. IV contrast opacification is insufficient to assess for pulmonary emboli or thoracic aortic dissection, although no gross evidence of such is seen. The thoracic aorta is normal in caliber. The pulmonary arteries are normal in caliber. No evidence of right ventricular dilatation. Normal heart size. No pericardial effusion No mediastinal or hilar mass or adenopathy. The included thyroid is unremarkable. No axillary or chest wall mass or adenopathy. There is slight asymmetric gynecomastia of the right breast. There is mild thoracic scoliotic deformity. There is smooth thoracic kyphosis without focal compression fracture. There is mild degenerative thoracic spondylosis. Abdomen pelvis: Note that the lower pelvis is not included in the imaging volume. Assessment of the solid organs is limited due to the poor quality of the contrast bolus. The liver demonstrates surface nodularity, consistent with cirrhosis. No gross focal abnormality. The gallbladder contains gallstones. No gallbladder wall thickening. No biliary ductal dilatation. The pancreas is atrophic. The spleen is enlarged, measuring 13.7 cm long axis dimension. Extensive perisplenic spontaneous splenorenal shunt type varices are demonstrated. Smaller perigastric and periesophageal varices are demonstrated. The adrenals are unremarkable. The kidneys are grossly unremarkable. No retroperitoneal or mesenteric mass or adenopathy. There is an abdominal aortic endograft. Patency is indeterminate given the poor contrast bolus although probably patent. The aneurysm sac is nearly collapsed around the prosthesis, measures only 3.3 x 3 cm. Contrast bolus is insufficient to assess for endoleak. The appendix is not definitely visualized, although may be excluded from the imaging volume. There is fluid in the proximal colon. There is distal colonic diverticulosis. No evidence of diverticulitis. No free intraperitoneal fluid. The bones demonstrate bilateral L5 spondylolysis and grade 1-2 L5 on S1 spondylolisthesis with secondary degenerative changes IMPRESSION: Very limited exam, as described. Due to poor patient cooperation adequate contrast bolus for CT angiography was not achieved. Also, the imaging volume does not include the lower pelvis. Consider repeat imaging of the lower pelvis if this is considered clinically relevant Unable to assess for acute pulmonary embolus, given at adequacy of the contrast bolus. No gross large vessel central pulmonary embolus demonstrated. No definite thoracic aortic pathology, but evaluation for dissection is limited given the poor contrast bolus Bilateral pulmonary dependent atelectatic changes. No acute pulmonary changes otherwise. Bilateral basilar dependent atelectatic changes Unilateral right gynecomastia Thoracic kyphoscoliotic deformity Evidence of hepatic cirrhosis. Evidence of portal hypertension, with splenorenal shunt type varices as well as perigastric and periesophageal varices Splenomegaly Cholelithiasis. Negative for dilated ducts Abdominal aortic endograft. Patency indeterminate given the poor contrast bolus although probably patent. Small surrounding aneurysm sac measures 3.3 x 3 cm. Contrast bolus is insufficient to assess for endoleak Colonic diverticulosis. No evidence of diverticulitis Bilateral L5 spondylolysis and grade 1-2 L5 on S1 spondylolisthesis Findings discussed by phone with Dr. Hutchison at the time of interpretation This agrees with the preliminary interpretation provided overnight by [facility] teleradiology service. The CT scanner at [facility] is accredited by the [employer] and the scans are performed using protocols designed to limit radiation exposure to as low as reasonably achievable to attain images of sufficient resolution adequate for diagnostic evaluation.
--- NOTE | 2017-09-14 17:53 | Diagnostic Imaging Report ---
EXAM: US Abdomen Complete CLINICAL HISTORY: ABN LABS TECHNIQUE: Real-time ultrasound of the abdomen (complete) with image documentation. COMPARISON: No relevant prior studies available. FINDINGS: Liver: Limited visualization of the liver. Gallbladder: Cholelithiasis and trace gallbladder sludge. Poor assessment of the wall thickness. Negative sonographic Morrison sign. Common bile duct: No biliary ductal dilatation. Pancreas: Poor visualization of the pancreas Kidneys: Small left the small hyperechoic focus in left kidney. Presumed pseudolesion in the left kidney. No hydronephrosis. Spleen: Splenomegaly, 13.9 cm. Collateral vessels near the spleen. Aorta: Limited visualization of the aorta. Inferior vena cava: Limited visualization. IMPRESSION: Cholelithiasis and trace gallbladder sludge. Poor assessment of the wall thickness. Negative sonographic Morrison sign.
--- NOTE | 2017-09-14 20:16 | Consultation ---
DATE OF CONSULTATION: 09/14/2017 INFECTIOUS DISEASE CONSULTATION CONSULTING PHYSICIAN: Von Hutchison M.D. PRIMARY ATTENDING PHYSICIAN: Julio C Ward M.D. REASON FOR CONSULTATION: Sepsis. HISTORY OF PRESENT ILLNESS: This is a 72-year-old male admitted last night from [facility] when he was brought by a friend with altered mental status. The patient was lethargic. He does not remember what happened, but now, he is awake, alert, oriented, and verbal. He had a fever of 103.3 in the ER, tachycardia, and elevated lactic acid. PAST MEDICAL HISTORY: Positive for nonalcoholic steatohepatitis (BAZAN), hypertension, hyperlipidemia, aortic aneurysm status post stent placement, and cirrhosis. SOCIAL HISTORY: Single. . Children live in [facility]. No history of alcohol, drug abuse, or smoking. MEDICATIONS: Gets Levaquin in the ER. ALLERGIES: Penicillin. REVIEW OF SYSTEMS: No headache. No sore throat. No coughing. No nausea. No vomiting. No diarrhea. No problem passing urine. Have chronic skin problem, eczema. PHYSICAL EXAMINATION: VITAL SIGNS: Current temperature 98.9, pulse 98, and blood pressure 105/63. NEUROLOGIC: Awake and alert, no acute distress. HEAD AND NECK: Alicia conjunctiva. No oral lesion. HEART: Regular. LUNGS: Clear. ABDOMEN: Soft and nontender. EXTREMITY: He has no edema. Has erythema in the right lower extremity associated with warmth extending from [id number] to below-knee area. LABORATORY AND DIAGNOSTIC DATA: WBC 9.6 coming down from 11.4, hemoglobin 11.9, hematocrit 36, and platelets 80,000. Sodium 135, potassium 3.9, chloride 103, bicarb 25, BUN 19, and creatinine 1.2. Lactic acid went up to 7.2, currently is 3.4 . Total bilirubin is 3.8. Direct bilirubin 1.3. Troponin was elevated to 0.173. The patient had a CT scan of the head that was negative. CT scan of the abdomen and pelvis and chest that shows cirrhosis, gallstone without cholecystitis, diverticulosis, and aortic stent. IMPRESSION: Sepsis with fever, tachycardia, and lactic acidosis. Source of infection mat right lower extremity cellulitis, cirrhosis, elevated troponin, and aortic aneurysm with aortic stent. RECOMMENDATION: We will start the patient on IV vancomycin and discontinue Levaquin. We will follow up the cultures. Case was discussed in detail with sister and the patient. Code status is DNR. Von Hutchison M.D. DR: LEIGHA JOB#: [id number] CC: ALICE
--- NOTE | 2017-09-14 21:46 | Consultation ---
DATE OF CONSULTATION: 09/14/2017 CARDIOLOGY CONSULTATION CONSULTING PHYSICIAN: Evan Dolan M.D. REFERRING PHYSICIAN: Julio C Ward M.D. REASON FOR CONSULTATION: Elevated troponin in the patient with history of aortic aneurysm and stent. HISTORY OF PRESENT ILLNESS: The patient is a 72-year-old gentleman, who was brought from intermediate for altered mental status. The patient was noted to have abnormal liver function tests. The patient usually follows up at the [facility]. The patient also has mild anemia and thrombocytopenia. There is no history of alcohol use. The CT of the abdomen and chest showed no evidence of pulmonary embolism, however, showed cirrhosis of the liver and esophageal varices. Cardiology consultation was obtained for further evaluation. PAST MEDICAL HISTORY: 1. Hypertension. 2. Hyperlipidemia. 3. History of aortic aneurysm with stent placement at the [facility]. FAMILY HISTORY: Noncontributory. SOCIAL HISTORY: Does not smoke . Do not drink alcohol. REVIEW OF SYSTEMS: Performed and was negative other than what is mentioned in the history of present illness. PHYSICAL EXAMINATION: VITAL SIGNS: Blood pressure is 106/57, pulse is 80, respirations 19, and temperature 99.7. HEAD AND NECK: Showed no JVD or carotid bruits. LUNGS: Clear. CARDIOVASCULAR: Regular S1 and S2 with no gallop or murmur. ABDOMEN: Soft and obese. EXTREMITIES: No pitting edema. DIAGNOSTIC DATA: His EKG showed sinus tachycardia with PACs and ST-T wave abnormalities with history lateral wall ischemia. LABORATORY DATA: Labs show white count of 9.2, hemoglobin 11.9, hematocrit of 36, and platelet count of 80,000. Sodium 135, potassium 3.9, BUN of 19, and creatinine 1.2. Lactic acid was 7.2. His total bilirubin is 3.8 and direct bilirubin is 1.3. His urine tox screen was negative. INR is 1.5. Troponin was 0.173. ASSESSMENT AND PLAN: 1. Troponin elevation 0.173. The patient does not have any chest pain, however, he does not have renal failure either. BNP was elevated at 763. We will repeat the cardiac enzymes and get an echocardiogram to evaluate for ejection fraction and wall motion abnormality. In the meantime, start the patient on low-dose beta-kylie and avoid aspirin in view of thrombocytopenia and we will see what the echocardiogram shows. 2. Cirrhosis of liver and esophageal varices based on the CT scan. Further evaluation by Dr. Woody. 3. Evaluate liver function tests. 4. Elevated lactic acid that is leveling down. Encephalopathy has resolved. Thank you very much for allowing me to participate in the care of this patient. Please do not hesitate to contact me for any questions regarding my evaluation. Evan Dolan M.D. DR: KATE JOB#: [id number] CC:
--- NOTE | 2017-09-14 23:16 | Consultation ---
DATE OF CONSULTATION: 09/14/2017 NEUROLOGY CONSULTATION CONSULTING PHYSICIAN: Blank Lynn M.D. REQUESTING PHYSICIAN: Julio C Ward M.D. HISTORY: Mr. Gerry Richard is a 72-year-old, left-handed, gentleman who does have a past history of hypertension, dyslipidemia, aortic aneurysm repair, neuropathy, a chronic pain syndrome involving his legs, gastroesophageal reflux disease, and cirrhosis of the liver. He was functioning relatively well until a day prior to admission when he was noted by his roommate to be increasingly more confused, disoriented, and not his normal self. He was brought into the [facility] emergency room and was quite altered when he came in. Since then, he has improved, but continues to not be at his baseline. At this point in time, he tells me that his mind is not completely clear, but significantly better than what it was when he came in. He also tells me that his right leg has been red and swollen recently and the redness, swelling, and heat in that leg was getting progressively worse before he came in. He denies any weakness on one side or the other, numbness on one side or the other, problems with speech, problems with language, problems with vision, or other neurological symptoms. PAST MEDICAL HISTORY: Significant for hypertension, dyslipidemia, aortic aneurysm repair, neuropathy, gastroesophageal reflux disease, chronic pain syndrome involving predominantly his legs, and cirrhosis of the liver. FAMILY HISTORY: Nothing significant as per the patient. PERSONAL HISTORY: Home: He lives in a board and longterm with a roommate. 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 Habits: He denies the use of alcohol, tobacco, or illicit drugs. MEDICATIONS: Vancomycin, metoprolol, Levaquin, Seroquel, and he got a single dose of lactulose. PHYSICAL EXAMINATION: GENERAL: He is a well-developed, well-nourished, pleasant gentleman, lying in bed, in no acute distress. VITAL SIGNS: Pulse 80/minute, blood pressure 106/57 mmHg, respirations 18/minute, and temperature 99.7 degrees Fahrenheit. HEAD: Normocephalic and atraumatic. EENT: Examination benign. NECK: No neck rigidity was observed. NEUROLOGIC EXAMINATION: MENTAL STATUS EXAMINATION: He was awake and alert. He was oriented to person, place, and time except for the exact date. He was able to recall 3/3 words immediately, but could only remember 2/3 words in 1 minute and 3 minute even on the second trial. He was able to remember presidents, Trump and Obama spontaneously, but needed hints to remember through [employer]myth senior. His mathematical skills were impaired. His visuospatial function was also impaired. SPEECH: He had no dysarthria. LANGUAGE: He had anomia for low-frequency words. CRANIAL NERVE EXAMINATION: II: The visual freitas were intact to confrontation testing. III, IV & : External ocular movements were full and the pupils 3 mm in diameter, equal, round, regular, and reactive to light. V: He had normal facial sensations, and the temporales, masseters, and pterygoids functioned normally. VII: He had normal facial expressions and no facial asymmetry. VIII: He was able to hear well bilaterally and had no nystagmus. IX: The palate moved symmetrically on phonation. X: He had no hoarseness of voice. X: The sternocleidomastoids and trapezii functioned normally. XII: The tongue was in the midline without any fasciculations or atrophy. MOTOR SYSTEM: The tone was normal in all four extremities. Examination of muscle mass revealed no focal wasting. Examination of power revealed grade 5/5 power in all muscle groups tested. SENSORY EXAMINATION: He had intact sensations to pinprick, light touch, and graphesthesia. COORDINATION: He performed well on kqjsvo-ff-bmam and jfpv-ni-rprj testing. REFLEXES: Trace+ and bilaterally symmetrical at the biceps, triceps, brachioradialis, and knees, 0 at both ankles. The plantar responses were flexor bilaterally. STANCE: He stood up with support. GAIT: He was able to take a few steps with support. DIAGNOSTIC IMPRESSION: 1. Mr. Gerry Richard is a 72-year-old, left-handed, gentleman, who does have a past history of hypertension, dyslipidemia, aortic aneurysm repair, neuropathy, chronic pain syndrome involving his lower extremities, gastroesophageal reflux disease and cirrhosis of the liver who was hospitalized for an alteration in his mental state. For the last few days, he has noticed that his right leg has become red, swollen, and at times quite painful. Since he has been in the hospital, he feels better. 2. On neurological examination, at this time, he is disoriented to the exact date, has problems with recent and remote memory, visuospatial function, and higher cognitive function. He also has diminished deep tendon reflexes with loss of ankle jerks. 3. The CT scan of the brain without contrast reveals atrophy and deep white matter changes, but no acute pathology. 4. Laboratory data obtained thus far revealed that when he came in, his WBC count was elevated to 11,400. He also was anemic with a hemoglobin of 11.9 G. His chemistry panel revealed that his blood glucose was elevated to 122. His total bilirubin was elevated to 4.5. His alkaline phosphate was elevated to 124, his AST was elevated to 72, his BNP was elevated at 753, his troponin is elevated to 0.173, and his albumin was low at 2.2. His urinalysis revealed 1+ leukocyte esterase, 5-10 RBCs, and 0-2 WBCs per high-power field with a few bacteria. His urine toxicology screen was benign. 5. The patient's history and neurological examination are most compatible with an acute encephalopathic process, most probably of a toxic/metabolic nature related to his acute infectious process due to right lower extremity cellulitis, and in addition a mild urinary tract infection. 6. It is unclear as to what his baseline neurological function is. There is a possibility that could be contributing to his present status. RECOMMENDATIONS: 1. Agree with management thus far. 2. Continue to try to correct toxic metabolic imbalances. 3. He will be worked up thoroughly for other treatable causes of encephalopathy. 4. Depending on how he fares over the next day or so, further recommendations will be given. Thank you for entrusting me with the care of Mr. Richard. I shall follow him with you. Shane Parson M.D., M.S.P.H. DR: TONJA JOB#: [id number] ALICE
[2017-09-15] VITALS: BP 92/61
[2017-09-15 04:00] VITALS: BP 102/63
[2017-09-15 08:00] VITALS: BP 106/57
[2017-09-15] MEDS: Metoprolol Succinate XL 25mg tab ORAL SCH (08:58)
[2017-09-15 09:51] LABS: ALANINE AMINOTRANSFERASE 25 U/L (12-78); ALBUMIN 1.7 G/DL (3.4-5.0); ALBUMIN/GLOBULIN RATIO 0.4 (1.0-2.7); ALKALINE PHOSPHATASE 92 U/L (46-116); ANION GAP 5 mmol/L (5-15); ASPARTATE AMINO TRANSFERASE 61 U/L (15-37); BILIRUBIN,TOTAL 2.5 MG/DL (0.2-1.0); BLOOD UREA NITROGEN 20 mg/dL (7-18); CALCIUM 7.6 MG/DL (8.5-10.1); CARBON DIOXIDE 25 MMOL/L (21-32); CHLORIDE 103 MMOL/L (98-107); CREATININE 1.1 MG/DL (0.55-1.30); POTASSIUM 3.7 MMOL/L (3.5-5.1); SODIUM 133 MMOL/L (136-145)
[2017-09-15 09:52] LABS: BILIRUBIN,DIRECT 1.1 MG/DL (0.0-0.3)
[2017-09-15 10:10] LABS: MEAN CORPUSCULAR VOLUME 100 FL (80-99); PLATELET COUNT 62 K/UL (150-450); RED BLOOD COUNT 2.91 M/UL (4.70-6.10); RED CELL DISTRIBUTION WIDTH 16.3 % (11.6-14.8); WHITE BLOOD COUNT 6.1 K/UL (4.8-10.8)
[2017-09-15] MEDS ORDERED: Vancomycin 1.5 GM/D5W 250ML IVPB SCH (11:15)
--- NOTE | 2017-09-15 11:16 | Infectious Diseases Prog Note ---
Assessment/Plan Assessment/Plan antibiotics : vancomycin iv, levoquin A 1, right leg cellulitis 2. hypertension 3. cirrhosis P 1. continue iv vancomycin, levoquin 2. will follow up cultures Subjective ROS Limited/Unobtainable: Yes Allergies: Coded Allergies: PENICILLINS (Verified Allergy, Unknown, 09/13/17) Objective Vital Signs Last 24 Hour Vital Signs Date Time Temp Pulse Resp B/P (MAP) Pulse Ox O2 Delivery O2 Flow Rate FiO2 09/15/17 08:58 58 106/57 09/15/17 08:00 97.5 58 21 106/57 99 Room Air 97.5 09/15/17 04:00 98.0 70 20 102/63 95 Room Air 98.0 09/15/17 04:00 68 09/15/17 00:00 87 09/15/17 00:00 99.4 79 20 92/61 97 Room Air 99.4 09/14/17 20:00 81 09/14/17 20:00 99.3 81 20 111/66 95 Room Air 99.3 09/14/17 16:01 98.8 75 19 125/73 98 Room Air 98.8 09/14/17 16:00 73 09/14/17 13:25 98.6 98.6 09/14/17 12:01 99.7 80 19 106/57 98 Room Air 99.7 09/14/17 12:00 83 Height (Feet): 5 Height (Inches): 10.00 Weight (Pounds): 190 Respiratory/Chest: lungs clear Cardiovascular: normal rate, regular rhythm, no gallop/murmur Abdomen: soft, non tender Extremities: no edema, other - right arm erythema Microbiology Date/Time Source Procedure Growth Status 09/13/17 20:45 Blood Blood Culture - Preliminary NO GROWTH AFTER 24 HOURS Resulted 09/13/17 20:25 Blood Blood Culture - Preliminary NO GROWTH AFTER 24 HOURS Resulted 09/14/17 03:00 Nasal Nares MRSA Culture - Final Staphylococcus Aureus - Mrsa Complete Laboratory Tests Test 09/14/17 11:50 09/14/17 18:50 09/15/17 08:55 09/15/17 09:45 Lactic Acid Level 2.70 mmol/L (0.66-2.22) H 2.40 mmol/L (0.4-2.0) H Hemoglobin A1c 4.7 % (4.3-6.0) Vitamin B12 Level 1007 PG/ML (193-986) H Pending Folate 22.3 NG/ML (8.6-58.9) Pending Sodium Level 133 MMOL/L (136-145) L Potassium Level 3.7 MMOL/L (3.5-5.1) Chloride Level 103 MMOL/L (98-107) Carbon Dioxide Level 25 MMOL/L (21-32) Anion Gap 5 mmol/L (5-15) Blood Urea Nitrogen 20 mg/dL (7-18) H Creatinine 1.1 MG/DL (0.55-1.30) Estimat Glomerular Filtration Rate > 60 mL/min (>60) Glucose Level 106 MG/DL (74-106) Calcium Level 7.6 MG/DL (8.5-10.1) L Total Bilirubin 2.5 MG/DL (0.2-1.0) H Direct Bilirubin 1.1 MG/DL (0.0-0.3) H Aspartate Amino Transf (AST/SGOT) 61 U/L (15-37) H Alanine Aminotransferase (ALT/SGPT) 25 U/L (12-78) Alkaline Phosphatase 92 U/L (46-116) Troponin I 0.079 ng/mL (0.000-0.056) Pro-B-Type Natriuretic Peptide 287 pg/mL (0-125) H Total Protein 6.0 G/DL (6.4-8.2) L Albumin 1.7 G/DL (3.4-5.0) L Globulin 4.3 g/dL Albumin/Globulin Ratio 0.4 (1.0-2.7) L White Blood Count 6.1 K/UL (4.8-10.8) Red Blood Count 2.91 M/UL (4.70-6.10) L Hemoglobin 10.0 G/DL (14.2-18.0) L Hematocrit 29.0 % (42.0-52.0) L Mean Corpuscular Volume 100 FL (80-99) H Mean Corpuscular Hemoglobin 34.4 PG (27.0-31.0) H Mean Corpuscular Hemoglobin Concent 34.4 G/DL (32.0-36.0) Red Cell Distribution Width 16.3 % (11.6-14.8) H Platelet Count 62 K/UL (150-450) L Mean Platelet Volume 5.7 FL (6.5-10.1) L Neutrophils (%) (Auto) % (45.0-75.0) Lymphocytes (%) (Auto) % (20.0-45.0) Monocytes (%) (Auto) % (1.0-10.0) Eosinophils (%) (Auto) % (0.0-3.0) Basophils (%) (Auto) % (0.0-2.0) Differential Total Cells Counted 100 Neutrophils % (Manual) 61 % (45-75) Lymphocytes % (Manual) 22 % (20-45) Monocytes % (Manual) 12 % (1-10) H Eosinophils % (Manual) 5 % (0-3) H Basophils % (Manual) 0 % (0-2) Band Neutrophils 0 % (0-8) Platelet Estimate Decreased L Platelet Morphology Normal Anisocytosis 1+ Macrocytosis 1+ Iron Level Pending Unsaturated Iron Binding Pending Ferritin Pending Vitamin D 25-Hydroxy Pending 25-Hydroxy Vitamin D2 Pending 25-Hydroxy Vitamin D3 Pending Rapid Plasma Reagin Pending Current Medications Medications (Trade) Dose Ordered Sig/Zia Route PRN Reason Start Time Stop Time Status Last Admin Dose Admin Iopamidol (Isovue-370 150ml) 150 ml NOW PRN INJ Radiology Procedure 09/13/17 21:45 09/15/17 21:32 Iopamidol (Isovue-370 150ml) 150 ml NOW PRN INJ Radiology Procedure 09/13/17 22:30 Levofloxacin (Levaquin) 750 mg Q24H ORAL 09/14/17 20:00 09/21/17 19:59 09/14/17 21:10 Metoprolol Succinate (Toprol XL) 25 mg DAILY ORAL 09/15/17 09:00 10/15/17 08:59 Quetiapine Fumarate (SEROquel) 25 mg Q6H PRN ORAL For Anxiety 09/14/17 15:00 10/14/17 14:59 Sodium Chloride 1,000 ml @ 65 mls/hr [id number] IV 09/14/17 05:00 10/14/17 04:59 09/14/17 20:24 Vancomycin HCl (Vanco rx to dose) 1 ea DAILY PRN MISC Per rx protocol 09/14/17 11:30 10/14/17 11:29 Vancomycin HCl/ Dextrose 250 ml @ 125 mls/hr Q24H IVPB 09/15/17 13:00 09/20/17 12:59 ORQUIDEA DIAZ Sep 15, 2017 11:16
[2017-09-15 11:19] LABS: FERRITIN 177 NG/ML (8-388)
[2017-09-15 11:33] LABS: % IRON SATURATION 33 % (15-50); IRON 41 ug/dL (50-175); TOTAL IRON BINDING CAPACITY 124 ug/dL (250-450)
[2017-09-15 12:00] VITALS: BP 112/63
[2017-09-15] MEDS: Vancomycin 1.5 GM/D5W 250ML IVPB SCH (12:19)
--- NOTE | 2017-09-15 12:25 | Consultation ---
Consult Note Consult Note Asked to eval for Proteinuria , Hypoalbuminemia 72-year-old male, unknown past medical history, coming from assisted living facility, with his friend, for altered mental status. Friend is not giving much information. He just brought the medication list which doesn't patient likely has hyperlipidemia and hypertension. No other history is able to be obtained as patient not answering any questions. Coded Allergies: PENICILLINS (Verified Allergy, Unknown, 09/13/17) Assessment/Plan Hypoalbuminemia Proteinuria Cirrhosis Encephalopathy elevated Troponin 24 H urine total protein per cardio / GI Change IV fluid gastric support MEDINA LYNCH Sep 15, 2017 12:25
[2017-09-15] MEDS: D5NS 1,000 ML IV SCH (12:50)
--- NOTE | 2017-09-15 14:08 | Neurology Progress Note ---
Interim History Interim History Interim History Mr. Richard feels well. The mind is clear. His memory is better. The right leg is less painful and less swollen. He was able to sleep well last night. He has not been out of bed. He denies any new neurologic symptoms. Review of Systems Neuro Review of Systems Benign. Objective Physical Exam Last Vital Signs Date Time Temp Pulse Resp B/P (MAP) Pulse Ox O2 Delivery O2 Flow Rate FiO2 09/15/17 12:00 98.7 63 22 112/63 99 Room Air 98.7 Laboratory Tests Test 09/14/17 18:50 09/15/17 08:55 09/15/17 09:45 09/15/17 12:00 Hemoglobin A1c 4.7 % (4.3-6.0) Vitamin B12 Level 1007 PG/ML (193-986) H 798 PG/ML (193-986) Folate 22.3 NG/ML (8.6-58.9) 8.4 NG/ML (8.6-58.9) L Sodium Level 133 MMOL/L (136-145) L Potassium Level 3.7 MMOL/L (3.5-5.1) Chloride Level 103 MMOL/L (98-107) Carbon Dioxide Level 25 MMOL/L (21-32) Anion Gap 5 mmol/L (5-15) Blood Urea Nitrogen 20 mg/dL (7-18) H Creatinine 1.1 MG/DL (0.55-1.30) Estimat Glomerular Filtration Rate > 60 mL/min (>60) Glucose Level 106 MG/DL (74-106) Calcium Level 7.6 MG/DL (8.5-10.1) L Total Bilirubin 2.5 MG/DL (0.2-1.0) H Direct Bilirubin 1.1 MG/DL (0.0-0.3) H Aspartate Amino Transf (AST/SGOT) 61 U/L (15-37) H Alanine Aminotransferase (ALT/SGPT) 25 U/L (12-78) Alkaline Phosphatase 92 U/L (46-116) Troponin I 0.079 ng/mL (0.000-0.056) Pro-B-Type Natriuretic Peptide 287 pg/mL (0-125) H Total Protein 6.0 G/DL (6.4-8.2) L Albumin 1.7 G/DL (3.4-5.0) L Globulin 4.3 g/dL Albumin/Globulin Ratio 0.4 (1.0-2.7) L White Blood Count 6.1 K/UL (4.8-10.8) Red Blood Count 2.91 M/UL (4.70-6.10) L Hemoglobin 10.0 G/DL (14.2-18.0) L Hematocrit 29.0 % (42.0-52.0) L Mean Corpuscular Volume 100 FL (80-99) H Mean Corpuscular Hemoglobin 34.4 PG (27.0-31.0) H Mean Corpuscular Hemoglobin Concent 34.4 G/DL (32.0-36.0) Red Cell Distribution Width 16.3 % (11.6-14.8) H Platelet Count 62 K/UL (150-450) L Mean Platelet Volume 5.7 FL (6.5-10.1) L Neutrophils (%) (Auto) % (45.0-75.0) Lymphocytes (%) (Auto) % (20.0-45.0) Monocytes (%) (Auto) % (1.0-10.0) Eosinophils (%) (Auto) % (0.0-3.0) Basophils (%) (Auto) % (0.0-2.0) Differential Total Cells Counted 100 Neutrophils % (Manual) 61 % (45-75) Lymphocytes % (Manual) 22 % (20-45) Monocytes % (Manual) 12 % (1-10) H Eosinophils % (Manual) 5 % (0-3) H Basophils % (Manual) 0 % (0-2) Band Neutrophils 0 % (0-8) Platelet Estimate Decreased L Platelet Morphology Normal Anisocytosis 1+ Macrocytosis 1+ Lactic Acid Level 2.40 mmol/L (0.4-2.0) H 1.80 mmol/L (0.66-2.22) Iron Level 41 ug/dL (50-175) L Total Iron Binding Capacity 124 ug/dL (250-450) L Percent Iron Saturation 33 % (15-50) Unsaturated Iron Binding 83 ug/dL (112-346) L Ferritin 177 NG/ML (8-388) C-Reactive Protein, Quantitative 5.7 mg/dL (0.00-0.90) H Vitamin D 25-Hydroxy Pending 25-Hydroxy Vitamin D2 Pending 25-Hydroxy Vitamin D3 Pending Rapid Plasma Reagin Pending Neurologic Exam Objective PHYSICAL EXAMINATION: GENERAL: He is a well-developed, well-nourished, pleasant gentleman, lying in bed, in no acute distress. HEAD: Normocephalic and atraumatic. EENT: Examination benign. NECK: No neck rigidity was observed. NEUROLOGIC EXAMINATION: MENTAL STATUS EXAMINATION: He was awake and alert. He was oriented to person, place, and time except for the exact date. He was able to recall 3/3 words immediately, but could remember them in 1 and 3 minutes. He was able to remember presidents, Trump through [employer]my[employer] senior. His mathematical skills were impaired. His visuospatial function was good. SPEECH: He had no dysarthria. LANGUAGE: He had anomia for low-frequency words. CRANIAL NERVE EXAMINATION: II: The visual freitas were intact to confrontation testing. III, IV & : External ocular movements were full and the pupils 3 mm in diameter, equal, round, regular, and reactive to light. V: He had normal facial sensations, and the temporales, masseters, and pterygoids functioned normally. VII: He had normal facial expressions and no facial asymmetry. VIII: He was able to hear well bilaterally and had no nystagmus. IX: The palate moved symmetrically on phonation. X: He had no hoarseness of voice. X: The sternocleidomastoids and trapezii functioned normally. XII: The tongue was in the midline without any fasciculations or atrophy. MOTOR SYSTEM: The tone was normal in all four extremities. Examination of muscle mass revealed no focal wasting. Examination of power revealed G 5/5 power in all muscle groups tested. SENSORY EXAMINATION: He had intact sensations to pinprick, light touch, and graphesthesia. COORDINATION: He performed well on mirhlr-pa-oqnv and rjwn-uv-oswg testing. REFLEXES: Trace+ and bilaterally symmetrical at the biceps, triceps, brachioradialis, and knees, 0 at both ankles. The plantar responses were flexor bilaterally. STANCE: He stood up with support. GAIT: He was able to take a few steps with support. Impression/Recommendations Diagnostic Impression 1. Mr. Gerry Richard is a 72-year-old, left-handed, gentleman, who does have a past history of hypertension, dyslipidemia, aortic aneurysm repair, neuropathy, chronic pain syndrome involving his lower extremities, gastroesophageal reflux disease and cirrhosis of the liver who was hospitalized for an alteration in his mental state. For the last few days, he had noticed that his right leg had become red, swollen, and at times quite painful. Since he has been in the hospital, he feels better. 2. He feels well. The mind is clear. His memory is better. The right leg is less painful and less swollen. He was able to sleep well last night. He has not been out of bed. He denies any new neurologic symptoms. 3. On neurological examination, at this time, he is fully oriented. His recent and remote memory has normalized. He still has mild problems with higher cognitive function. He also has diminished deep tendon reflexes with loss of ankle jerks. 4. The CT scan of the brain without contrast reveals atrophy and deep white matter changes, but no acute pathology. 5. Laboratory data obtained thus far revealed that when he came in, his WBC count was elevated to 11,400. He also was anemic with a hemoglobin of 11.9 G. His chemistry panel revealed that his blood glucose was elevated to 122. His total bilirubin was elevated to 4.5. His alkaline phosphate was elevated to 124 , his AST was elevated to 72, his BNP was elevated at 753, his troponin is elevated to 0.173, and his albumin was low at 2.2. His urinalysis revealed 1+ leukocyte esterase, 5-10 RBCs, and 0-2 WBCs per high-power field with a few bacteria. His urine toxicology screen was benign. His B12 level and folate levels are normal. 6. The patient's history and neurological examination are most compatible with an acute encephalopathic process, most probably of a toxic/metabolic nature related to his acute infectious process due to right lower extremity cellulitis , and in addition a mild urinary tract infection. 7. His encephalopathy is resolving. Recommendations 1. Continue present management. 2. Continue to try to correct toxic metabolic imbalances. 3. Increase activity as tolerated. Priya Parson M.D., M.S.P.PRIYA PHAN Sep 15, 2017 14:07
[2017-09-15 16:00] VITALS: BP 110/65
[2017-09-15] MEDS ORDERED: D5NS 1000ml IV ONE (17:32)
[2017-09-15] MEDS ORDERED: 1/2 NS 1000ml IV ONE (17:32)
--- NOTE | 2017-09-15 19:03 | Cardiac Electrophysiology PN ---
Assessment/Plan Assessment/Plan 1. Troponin elevation 0.173 and 0.07 The patient does not have any chest pain BNP was elevated at 763.Echocardiogram showed EF 55% Continue Toprol 25 daily and avoid aspirin in view of thrombocytopenia 2. Aortic aneurysm s/p stent graft. 3. Cirrhosis of liver and esophageal varices based on the CT scan. Further evaluation by Dr. Woody. 4. Evaluate liver function tests. 5. Elevated lactic acid that is leveling down. Encephalopathy has resolved. Subjective Subjective Feeling better. No events. Objective Last 24 Hour Vital Signs Date Time Temp Pulse Resp B/P (MAP) Pulse Ox O2 Delivery O2 Flow Rate FiO2 09/15/17 16:00 66 09/15/17 16:00 97.5 66 20 110/65 97 Room Air 97.5 09/15/17 12:00 98.7 63 22 112/63 99 Room Air 98.7 09/15/17 12:00 61 09/15/17 08:58 58 106/57 09/15/17 08:00 63 09/15/17 08:00 97.5 58 21 106/57 99 Room Air 97.5 09/15/17 04:00 98.0 70 20 102/63 95 Room Air 98.0 09/15/17 04:00 68 09/15/17 00:00 87 09/15/17 00:00 99.4 79 20 92/61 97 Room Air 99.4 09/14/17 20:00 81 09/14/17 20:00 99.3 81 20 111/66 95 Room Air 99.3 Intake and Output 09/14/17 09/15/17 19:00 07:00 Intake Total 520 ml Output Total 1040 ml 140 ml Balance -520 ml -140 ml IV Total 520 ml Output Urine Total 1040 ml 140 ml # Voids 4 4 # Bowel Movements 1 Laboratory Tests Test 09/15/17 08:55 09/15/17 09:45 09/15/17 12:00 Sodium Level 133 MMOL/L (136-145) L Potassium Level 3.7 MMOL/L (3.5-5.1) Chloride Level 103 MMOL/L (98-107) Carbon Dioxide Level 25 MMOL/L (21-32) Anion Gap 5 mmol/L (5-15) Blood Urea Nitrogen 20 mg/dL (7-18) H Creatinine 1.1 MG/DL (0.55-1.30) Estimat Glomerular Filtration Rate > 60 mL/min (>60) Glucose Level 106 MG/DL (74-106) Calcium Level 7.6 MG/DL (8.5-10.1) L Total Bilirubin 2.5 MG/DL (0.2-1.0) H Direct Bilirubin 1.1 MG/DL (0.0-0.3) H Aspartate Amino Transf (AST/SGOT) 61 U/L (15-37) H Alanine Aminotransferase (ALT/SGPT) 25 U/L (12-78) Alkaline Phosphatase 92 U/L (46-116) Troponin I 0.079 ng/mL (0.000-0.056) Pro-B-Type Natriuretic Peptide 287 pg/mL (0-125) H Total Protein 6.0 G/DL (6.4-8.2) L Albumin 1.7 G/DL (3.4-5.0) L Globulin 4.3 g/dL Albumin/Globulin Ratio 0.4 (1.0-2.7) L White Blood Count 6.1 K/UL (4.8-10.8) Red Blood Count 2.91 M/UL (4.70-6.10) L Hemoglobin 10.0 G/DL (14.2-18.0) L Hematocrit 29.0 % (42.0-52.0) L Mean Corpuscular Volume 100 FL (80-99) H Mean Corpuscular Hemoglobin 34.4 PG (27.0-31.0) H Mean Corpuscular Hemoglobin Concent 34.4 G/DL (32.0-36.0) Red Cell Distribution Width 16.3 % (11.6-14.8) H Platelet Count 62 K/UL (150-450) L Mean Platelet Volume 5.7 FL (6.5-10.1) L Neutrophils (%) (Auto) % (45.0-75.0) Lymphocytes (%) (Auto) % (20.0-45.0) Monocytes (%) (Auto) % (1.0-10.0) Eosinophils (%) (Auto) % (0.0-3.0) Basophils (%) (Auto) % (0.0-2.0) Differential Total Cells Counted 100 Neutrophils % (Manual) 61 % (45-75) Lymphocytes % (Manual) 22 % (20-45) Monocytes % (Manual) 12 % (1-10) H Eosinophils % (Manual) 5 % (0-3) H Basophils % (Manual) 0 % (0-2) Band Neutrophils 0 % (0-8) Platelet Estimate Decreased L Platelet Morphology Normal Anisocytosis 1+ Macrocytosis 1+ Lactic Acid Level 2.40 mmol/L (0.4-2.0) H 1.80 mmol/L (0.66-2.22) Iron Level 41 ug/dL (50-175) L Total Iron Binding Capacity 124 ug/dL (250-450) L Percent Iron Saturation 33 % (15-50) Unsaturated Iron Binding 83 ug/dL (112-346) L Ferritin 177 NG/ML (8-388) C-Reactive Protein, Quantitative 5.7 mg/dL (0.00-0.90) H Vitamin B12 Level 798 PG/ML (193-986) Vitamin D 25-Hydroxy Pending 25-Hydroxy Vitamin D2 Pending 25-Hydroxy Vitamin D3 Pending Folate 8.4 NG/ML (8.6-58.9) L Rapid Plasma Reagin Pending Microbiology Date/Time Source Procedure Growth Status 09/13/17 20:45 Blood Blood Culture - Preliminary NO GROWTH AFTER 24 HOURS Resulted 09/13/17 20:25 Blood Blood Culture - Preliminary NO GROWTH AFTER 24 HOURS Resulted 09/14/17 03:00 Nasal Nares MRSA Culture - Final Staphylococcus Aureus - Mrsa Complete Objective HEAD AND NECK: Showed no JVD or carotid bruits. LUNGS: Clear. CARDIOVASCULAR: Regular S1 and S2 with no gallop or murmur. ABDOMEN: Soft and obese. EXTREMITIES: No pitting edema. Evan Dolan MD Sep 15, 2017 19:03
--- NOTE | 2017-09-15 19:58 | General Progress Note ---
Assessment/Plan Assessment/Plan Assessment - cirrhosis - portal HTN - resolved encephalopathy - Aortic aneurysm / graft - elevated lactic acid Recommendations - advance diet - follow labs - cardiology f/u - Check HBV, HCV - Check AFP Subjective Allergies: Coded Allergies: PENICILLINS (Verified Allergy, Unknown, 09/13/17) Subjective Feels OK no abdominal pain wants diet advanced Objective Last 24 Hour Vital Signs Date Time Temp Pulse Resp B/P (MAP) Pulse Ox O2 Delivery O2 Flow Rate FiO2 09/15/17 16:00 66 09/15/17 16:00 97.5 66 20 110/65 97 Room Air 97.5 09/15/17 12:00 98.7 63 22 112/63 99 Room Air 98.7 09/15/17 12:00 61 09/15/17 08:58 58 106/57 09/15/17 08:00 63 09/15/17 08:00 97.5 58 21 106/57 99 Room Air 97.5 09/15/17 04:00 98.0 70 20 102/63 95 Room Air 98.0 09/15/17 04:00 68 09/15/17 00:00 87 09/15/17 00:00 99.4 79 20 92/61 97 Room Air 99.4 09/14/17 20:00 81 09/14/17 20:00 99.3 81 20 111/66 95 Room Air 99.3 Intake and Output 09/14/17 09/15/17 19:00 07:00 Intake Total 520 ml Output Total 1040 ml 140 ml Balance -520 ml -140 ml IV Total 520 ml Output Urine Total 1040 ml 140 ml # Voids 4 4 # Bowel Movements 1 Laboratory Tests 09/15/17 08:55: Sodium Level 133L, Potassium Level 3.7, Chloride Level 103, Carbon Dioxide Level 25, Anion Gap 5, Blood Urea Nitrogen 20H, Creatinine 1.1, Estimat Glomerular Filtration Rate > 60, Glucose Level 106, Calcium Level 7.6L, Total Bilirubin 2.5H, Direct Bilirubin 1.1H, Aspartate Amino Transf (AST/SGOT) 61H, Alanine Aminotransferase (ALT/SGPT) 25, Alkaline Phosphatase 92, Troponin I 0.079H, Pro-B-Type Natriuretic Peptide 287H, Total Protein 6.0L, Albumin 1.7L, Globulin 4.3, Albumin/Globulin Ratio 0.4L 09/15/17 09:45: White Blood Count 6.1, Red Blood Count 2.91L, Hemoglobin 10.0L, Hematocrit 29.0L , Mean Corpuscular Volume 100H, Mean Corpuscular Hemoglobin 34.4H, Mean Corpuscular Hemoglobin Concent 34.4, Red Cell Distribution Width 16.3H, Platelet Count 62L, Mean Platelet Volume 5.7L, Neutrophils (%) (Auto) , Lymphocytes (%) (Auto) , Monocytes (%) (Auto) , Eosinophils (%) (Auto) , Basophils (%) (Auto) , Differential Total Cells Counted 100, Neutrophils % ( Manual) 61, Lymphocytes % (Manual) 22, Monocytes % (Manual) 12H, Eosinophils % ( Manual) 5H, Basophils % (Manual) 0, Band Neutrophils 0, Platelet Estimate DecreasedL, Platelet Morphology Normal, Anisocytosis 1+, Macrocytosis 1+, Lactic Acid Level 2.40H, Iron Level 41L, Total Iron Binding Capacity 124L, Percent Iron Saturation 33, Unsaturated Iron Binding 83L, Ferritin 177, C- Reactive Protein, Quantitative 5.7H, Vitamin B12 Level 798, Vitamin D 25- Hydroxy [Pending], 25-Hydroxy Vitamin D2 [Pending], 25-Hydroxy Vitamin D3 [ Pending], Folate 8.4L, Rapid Plasma Reagin [Pending] 09/15/17 12:00: Lactic Acid Level 1.80 Height (Feet): 5 Height (Inches): 10.00 Weight (Pounds): 190 Objective WDWN NCAT supple CTA RRR abd soft No edema Gurmeet Bolton MD Sep 15, 2017 19:58
[2017-09-15 20:00] VITALS: BP 107/58
--- NOTE | 2017-09-15 20:58 | General Progress Note ---
Assessment/Plan Problem List: (1) Cirrhosis ICD Codes: K74.60 - Unspecified cirrhosis of liver SNOMED: 72439081, 281769686 (2) Encephalopathy acute ICD Codes: G93.40 - Encephalopathy, unspecified SNOMED: 45448670, 589689928 (3) Altered level of consciousness ICD Codes: R40.4 - Transient alteration of awareness SNOMED: 6690838 (4) Elevated troponin ICD Codes: R74.8 - Abnormal levels of other serum enzymes SNOMED: 547989250, 377913725, [id number] Status: progressing Assessment/Plan ams r/o sepsis reviewed chart and labs platelt is dropping consulted heme/onc for low platlet cirrhosis Subjective ROS Limited/Unobtainable: Yes Allergies: Coded Allergies: PENICILLINS (Verified Allergy, Unknown, 09/13/17) Objective Last 24 Hour Vital Signs Date Time Temp Pulse Resp B/P (MAP) Pulse Ox O2 Delivery O2 Flow Rate FiO2 09/15/17 16:00 66 09/15/17 16:00 97.5 66 20 110/65 97 Room Air 97.5 09/15/17 12:00 98.7 63 22 112/63 99 Room Air 98.7 09/15/17 12:00 61 09/15/17 08:58 58 106/57 09/15/17 08:00 63 09/15/17 08:00 97.5 58 21 106/57 99 Room Air 97.5 09/15/17 04:00 98.0 70 20 102/63 95 Room Air 98.0 09/15/17 04:00 68 09/15/17 00:00 87 09/15/17 00:00 99.4 79 20 92/61 97 Room Air 99.4 Intake and Output 09/14/17 09/15/17 19:00 07:00 Intake Total 520 ml Output Total 1040 ml 140 ml Balance -520 ml -140 ml IV Total 520 ml Output Urine Total 1040 ml 140 ml # Voids 4 4 # Bowel Movements 1 Laboratory Tests 09/15/17 08:55: Sodium Level 133L, Potassium Level 3.7, Chloride Level 103, Carbon Dioxide Level 25, Anion Gap 5, Blood Urea Nitrogen 20H, Creatinine 1.1, Estimat Glomerular Filtration Rate > 60, Glucose Level 106, Calcium Level 7.6L, Total Bilirubin 2.5H, Direct Bilirubin 1.1H, Aspartate Amino Transf (AST/SGOT) 61H, Alanine Aminotransferase (ALT/SGPT) 25, Alkaline Phosphatase 92, Troponin I 0.079H, Pro-B-Type Natriuretic Peptide 287H, Total Protein 6.0L, Albumin 1.7L, Globulin 4.3, Albumin/Globulin Ratio 0.4L 09/15/17 09:45: White Blood Count 6.1, Red Blood Count 2.91L, Hemoglobin 10.0L, Hematocrit 29.0L , Mean Corpuscular Volume 100H, Mean Corpuscular Hemoglobin 34.4H, Mean Corpuscular Hemoglobin Concent 34.4, Red Cell Distribution Width 16.3H, Platelet Count 62L, Mean Platelet Volume 5.7L, Neutrophils (%) (Auto) , Lymphocytes (%) (Auto) , Monocytes (%) (Auto) , Eosinophils (%) (Auto) , Basophils (%) (Auto) , Differential Total Cells Counted 100, Neutrophils % ( Manual) 61, Lymphocytes % (Manual) 22, Monocytes % (Manual) 12H, Eosinophils % ( Manual) 5H, Basophils % (Manual) 0, Band Neutrophils 0, Platelet Estimate DecreasedL, Platelet Morphology Normal, Anisocytosis 1+, Macrocytosis 1+, Lactic Acid Level 2.40H, Iron Level 41L, Total Iron Binding Capacity 124L, Percent Iron Saturation 33, Unsaturated Iron Binding 83L, Ferritin 177, C- Reactive Protein, Quantitative 5.7H, Vitamin B12 Level 798, Vitamin D 25- Hydroxy [Pending], 25-Hydroxy Vitamin D2 [Pending], 25-Hydroxy Vitamin D3 [ Pending], Folate 8.4L, Rapid Plasma Reagin [Pending] 09/15/17 12:00: Lactic Acid Level 1.80 Height (Feet): 5 Height (Inches): 10.00 Weight (Pounds): 190 Julio C Ward MD Sep 15, 2017 20:58
[2017-09-16] VITALS: BP 98/64
--- NOTE | 2017-09-16 02:45 | Consultation ---
DATE OF CONSULTATION: 09/15/2017 NOTE: POOR AUDIO HEMATOLOGY/ONCOLOGY CONSULTATION CONSULTING PHYSICIAN: Yung Mishra M.D. REQUESTING PHYSICIAN: Julio C Ward M.D. REASON FOR CONSULTATION: Evaluation of anemia deficiency and thrombocytopenia. IDENTIFYING DATA: Dear Dr. Yuen, The patient is a pleasant 72-year-old male with past medical history significant for history of cirrhosis as well as history of elevated troponin, history of hypertension, history of hyperlipidemia, at this time presents with altered mental status has anemia and thrombocytopenia. No history of alcohol abuse. CAT scan showed pulmonary embolus cirrhosis ____. PAST MEDICAL HISTORY: Hypertension, hyperlipidemia, and aortic aneurysm. FAMILY HISTORY: . SOCIAL HISTORY: alcohol in the past. REVIEW OF SYSTEMS: negative. PHYSICAL EXAMINATION: VITAL SIGNS: Reviewed. GENERAL: No distress. LUNGS: Decreased breath sounds. CARDIOVASCULAR: Regular rate. No S3 or S4. ABDOMEN: Soft, nontender, and nondistended. EXTREMITIES: 1+ edema. LABORATORY DATA: Platelet count is 62,000. ASSESSMENT AND RECOMMENDATIONS: 1. Anemia of chronic disease. Closely monitor for improvement. 2. Thrombocytopenia, acute onset. 3. obtain hepatitis panel, human immunodeficiency virus, most likely related to cirrhosis . 4. history of alcohol abuse. 5. Altered mental status, has been seen by Neurology. 6. The patient has encephalopathy 7. Elevated troponin. 8. Leukocytosis. . 9. Coagulopathy secondary to I appreciate the consultation. Yung Mishra M.D. DR: CAROL JOB#: [id number] CC:
[2017-09-16 04:00] VITALS: BP 124/69
[2017-09-16 07:31] LABS: HEMATOCRIT 31.1 % (42.0-52.0); HEMOGLOBIN 10.5 G/DL (14.2-18.0); MEAN CORPUSCULAR VOLUME 100 FL (80-99); PLATELET COUNT 66 K/UL (150-450); RED BLOOD COUNT 3.11 M/UL (4.70-6.10); RED CELL DISTRIBUTION WIDTH 15.8 % (11.6-14.8); WHITE BLOOD COUNT 4.9 K/UL (4.8-10.8)
[2017-09-16 08:00] VITALS: BP 123/65
[2017-09-16 08:09] LABS: ALANINE AMINOTRANSFERASE 31 U/L (12-78); ALBUMIN 1.8 G/DL (3.4-5.0); ALBUMIN/GLOBULIN RATIO 0.4 (1.0-2.7); ALKALINE PHOSPHATASE 98 U/L (46-116); ANION GAP 4 mmol/L (5-15); ASPARTATE AMINO TRANSFERASE 65 U/L (15-37); BILIRUBIN,TOTAL 2.4 MG/DL (0.2-1.0); BLOOD UREA NITROGEN 15 mg/dL (7-18); CALCIUM 7.9 MG/DL (8.5-10.1); CARBON DIOXIDE 25 MMOL/L (21-32); CHLORIDE 106 MMOL/L (98-107); POTASSIUM 3.9 MMOL/L (3.5-5.1); SODIUM 135 MMOL/L (136-145)
[2017-09-16 08:14] LABS: BILIRUBIN,DIRECT 1.1 MG/DL (0.0-0.3)
[2017-09-16] MEDS: Metoprolol Succinate XL 25mg tab ORAL SCH (09:03)
[2017-09-16] MEDS: D5NS 1,000 ML IV SCH (09:04)
[2017-09-16 10:52] LABS: CHOLESTEROL 90 MG/DL (< 200); HDL CHOLESTEROL 18 MG/DL (40-60); TRIGLYCERIDES 68 MG/DL (30-150)
--- NOTE | 2017-09-16 10:52 | Infectious Diseases Prog Note ---
Assessment/Plan Assessment/Plan A 1, right leg cellulitis 2. hypertension 3. cirrhosis 4. MRSA colonization 5. AMS resolved 6. Anemia & Thrombocytopenia P 1. continue iv vancomycin, Levaquin 2. will follow up cultures Subjective ROS Limited/Unobtainable: No Constitutional: Reports: no symptoms Respiratory: Reports: no symptoms Cardiovascular: Reports: no symptoms Gastrointestinal/Abdominal: Reports: no symptoms Genitourinary: Reports: no symptoms Musculoskeletal: Reports: pain, other - slight pain in R leg Allergies: Coded Allergies: PENICILLINS (Verified Allergy, Unknown, 09/13/17) Objective Vital Signs Last 24 Hour Vital Signs Date Time Temp Pulse Resp B/P (MAP) Pulse Ox O2 Delivery O2 Flow Rate FiO2 09/16/17 09:03 78 123/65 09/16/17 08:00 98.1 78 20 123/65 96 Room Air 98.1 09/16/17 04:00 67 09/16/17 04:00 97.8 62 20 124/69 96 Room Air 97.8 09/16/17 00:00 97.6 66 22 98/64 96 Room Air 97.6 09/16/17 00:00 68 09/15/17 20:00 82 09/15/17 20:00 98.2 70 20 107/58 96 Room Air 98.2 09/15/17 16:00 66 09/15/17 16:00 97.5 66 20 110/65 97 Room Air 97.5 09/15/17 12:00 98.7 63 22 112/63 99 Room Air 98.7 09/15/17 12:00 61 Height (Feet): 5 Height (Inches): 10.00 Weight (Pounds): 190 General Appearance: no acute distress HEENT: mucous membranes moist Respiratory/Chest: lungs clear Cardiovascular: normal rate Abdomen: soft, non tender Extremities: no edema Skin: other - erythema in R leg Microbiology Date/Time Source Procedure Growth Status 09/13/17 20:45 Blood Blood Culture - Preliminary NO GROWTH AFTER 48 HOURS Resulted 09/13/17 20:25 Blood Blood Culture - Preliminary NO GROWTH AFTER 48 HOURS Resulted 09/14/17 03:00 Nasal Nares MRSA Culture - Final Staphylococcus Aureus - Mrsa Complete 09/14/17 03:00 Rectum - Final NO CARBAPENEM-RESISTANT ENTEROBACTERI... Complete 09/14/17 03:00 Rectum VRE Culture - Final NO VANCOMYCIN RESISTANT ENTEROCOCCUS ... Complete Laboratory Tests Test 09/15/17 12:00 09/15/17 22:30 09/16/17 06:17 Lactic Acid Level 1.80 mmol/L (0.66-2.22) 1.40 mmol/L (0.4-2.0) Hepatitis A IgM Antibody Pending Hepatitis B Surface Antigen Pending Pending Hepatitis B Core IgM Antibody Pending Hepatitis C Antibody Pending Pending HIV (1&2) Antibody Rapid Negative (NEGATIVE) White Blood Count 4.9 K/UL (4.8-10.8) Red Blood Count 3.11 M/UL (4.70-6.10) L Hemoglobin 10.5 G/DL (14.2-18.0) L Hematocrit 31.1 % (42.0-52.0) L Mean Corpuscular Volume 100 FL (80-99) H Mean Corpuscular Hemoglobin 33.6 PG (27.0-31.0) H Mean Corpuscular Hemoglobin Concent 33.7 G/DL (32.0-36.0) Red Cell Distribution Width 15.8 % (11.6-14.8) H Platelet Count 66 K/UL (150-450) L Mean Platelet Volume 6.8 FL (6.5-10.1) Neutrophils (%) (Auto) % (45.0-75.0) Lymphocytes (%) (Auto) % (20.0-45.0) Monocytes (%) (Auto) % (1.0-10.0) Eosinophils (%) (Auto) % (0.0-3.0) Basophils (%) (Auto) % (0.0-2.0) Differential Total Cells Counted 100 Neutrophils % (Manual) 64 % (45-75) Lymphocytes % (Manual) 20 % (20-45) Monocytes % (Manual) 12 % (1-10) H Eosinophils % (Manual) 4 % (0-3) H Basophils % (Manual) 0 % (0-2) Band Neutrophils 0 % (0-8) Platelet Estimate Decreased L Platelet Morphology Normal Hypochromasia 1+ Anisocytosis 1+ Sodium Level 135 MMOL/L (136-145) L Potassium Level 3.9 MMOL/L (3.5-5.1) Chloride Level 106 MMOL/L (98-107) Carbon Dioxide Level 25 MMOL/L (21-32) Anion Gap 4 mmol/L (5-15) L Blood Urea Nitrogen 15 mg/dL (7-18) Creatinine 1.0 MG/DL (0.55-1.30) Estimat Glomerular Filtration Rate > 60 mL/min (>60) Glucose Level 100 MG/DL (74-106) Uric Acid 2.3 MG/DL (2.6-7.2) L Calcium Level 7.9 MG/DL (8.5-10.1) L Phosphorus Level 3.0 MG/DL (2.5-4.9) Magnesium Level 1.8 MG/DL (1.8-2.4) Total Bilirubin 2.4 MG/DL (0.2-1.0) H Direct Bilirubin 1.1 MG/DL (0.0-0.3) H Aspartate Amino Transf (AST/SGOT) 65 U/L (15-37) H Alanine Aminotransferase (ALT/SGPT) 31 U/L (12-78) Alkaline Phosphatase 98 U/L (46-116) Troponin I 0.044 ng/mL (0.000-0.056) Pro-B-Type Natriuretic Peptide 173 pg/mL (0-125) H Total Protein 5.9 G/DL (6.4-8.2) L Albumin 1.8 G/DL (3.4-5.0) L Globulin 4.1 g/dL Albumin/Globulin Ratio 0.4 (1.0-2.7) L Triglycerides Level Pending Cholesterol Level Pending LDL Cholesterol Pending HDL Cholesterol Pending Cholesterol/HDL Ratio Pending Alpha Fetoprotein Pending Cortisol AM Sample Pending Current Medications Medications (Trade) Dose Ordered Sig/Zia Route PRN Reason Start Time Stop Time Status Last Admin Dose Admin Dextrose/Sodium Chloride 1,000 ml @ 50 mls/hr Q20H IV 09/15/17 13:00 10/15/17 12:59 09/16/17 09:04 Iopamidol (Isovue-370 150ml) 150 ml NOW PRN INJ Radiology Procedure 09/13/17 22:30 Levofloxacin (Levaquin) 750 mg Q24H ORAL 09/14/17 20:00 09/21/17 19:59 09/15/17 20:31 Metoprolol Succinate (Toprol XL) 25 mg DAILY ORAL 09/15/17 09:00 10/15/17 08:59 09/16/17 09:03 Pantoprazole (Protonix) 40 mg DAILY ORAL 09/15/17 13:00 10/15/17 12:59 09/16/17 09:03 Quetiapine Fumarate (SEROquel) 25 mg Q6H PRN ORAL For Anxiety 09/14/17 15:00 10/14/17 14:59 Vancomycin HCl (Vanco rx to dose) 1 ea DAILY PRN MISC Per rx protocol 09/14/17 11:30 10/14/17 11:29 Vancomycin HCl/ Dextrose 250 ml @ 125 mls/hr Q24H IVPB 09/15/17 13:00 09/20/17 12:59 09/15/17 12:19 Von Hutchison MD Sep 16, 2017 10:52
--- NOTE | 2017-09-16 11:34 | Nephrology Progress Note ---
Assessment/Plan Problem List: (1) Cirrhosis (2) Encephalopathy acute (3) Proteinuria (4) Elevated troponin Assessment Hypoalbuminemia Proteinuria Cirrhosis Encephalopathy elevated Troponin Plan 24 H urine total protein per cardio / GI Change IV fluid gastric support Subjective ROS Limited/Unobtainable: No Constitutional: Reports: malaise Objective Objective Last 24 Hour Vital Signs Date Time Temp Pulse Resp B/P (MAP) Pulse Ox O2 Delivery O2 Flow Rate FiO2 09/16/17 09:03 78 123/65 09/16/17 08:00 98.1 78 20 123/65 96 Room Air 98.1 09/16/17 04:00 67 09/16/17 04:00 97.8 62 20 124/69 96 Room Air 97.8 09/16/17 00:00 97.6 66 22 98/64 96 Room Air 97.6 09/16/17 00:00 68 09/15/17 20:00 82 09/15/17 20:00 98.2 70 20 107/58 96 Room Air 98.2 09/15/17 16:00 66 09/15/17 16:00 97.5 66 20 110/65 97 Room Air 97.5 09/15/17 12:00 98.7 63 22 112/63 99 Room Air 98.7 09/15/17 12:00 61 Intake and Output 09/15/17 09/16/17 19:00 07:00 Intake Total 785 ml Output Total 700 ml 400 ml Balance 85 ml -400 ml Intake Oral 720 ml IV Total 65 ml Output Urine Total 700 ml 400 ml # Voids 2 1 Laboratory Tests 09/15/17 12:00: Lactic Acid Level 1.80 09/15/17 22:30: Hepatitis A IgM Antibody [Pending], Hepatitis B Surface Antigen [Pending], Hepatitis B Core IgM Antibody [Pending], Hepatitis C Antibody [Pending], HIV (1& 2) Antibody Rapid Negative 09/16/17 06:17: Lactic Acid Level 1.40, Hepatitis B Surface Antigen [Pending], Hepatitis C Antibody [Pending], White Blood Count 4.9, Red Blood Count 3.11L, Hemoglobin 10.5L, Hematocrit 31.1L, Mean Corpuscular Volume 100H, Mean Corpuscular Hemoglobin 33.6H, Mean Corpuscular Hemoglobin Concent 33.7, Red Cell Distribution Width 15.8H, Platelet Count 66L, Mean Platelet Volume 6.8, Neutrophils (%) (Auto) , Lymphocytes (%) (Auto) , Monocytes (%) (Auto) , Eosinophils (%) (Auto) , Basophils (%) (Auto) , Differential Total Cells Counted 100, Neutrophils % (Manual) 64, Lymphocytes % (Manual) 20, Monocytes % ( Manual) 12H, Eosinophils % (Manual) 4H, Basophils % (Manual) 0, Band Neutrophils 0, Platelet Estimate DecreasedL, Platelet Morphology Normal, Hypochromasia 1+, Anisocytosis 1+, Sodium Level 135L, Potassium Level 3.9, Chloride Level 106, Carbon Dioxide Level 25, Anion Gap 4L, Blood Urea Nitrogen 15, Creatinine 1.0, Estimat Glomerular Filtration Rate > 60, Glucose Level 100, Uric Acid 2.3L, Calcium Level 7.9L, Phosphorus Level 3.0, Magnesium Level 1.8, Total Bilirubin 2.4H, Direct Bilirubin 1.1H, Aspartate Amino Transf (AST/SGOT) 65H, Alanine Aminotransferase (ALT/SGPT) 31, Alkaline Phosphatase 98, Troponin I 0.044, Pro-B-Type Natriuretic Peptide 173H, Total Protein 5.9L, Albumin 1.8L, Globulin 4.1, Albumin/Globulin Ratio 0.4L, Triglycerides Level 68, Cholesterol Level 90, LDL Cholesterol 68, HDL Cholesterol 18L, Cholesterol/HDL Ratio 5.0H, Alpha Fetoprotein [Pending], Cortisol AM Sample [Pending] Height (Feet): 5 Height (Inches): 10.00 Weight (Pounds): 190 General Appearance: no apparent distress, lethargic Respiratory/Chest: decreased breath sounds Abdomen: distended MEDINA LYNCH Sep 16, 2017 11:34
[2017-09-16 12:00] VITALS: BP 119/66
[2017-09-16] MEDS: Vancomycin 1.5 GM/D5W 250ML IVPB SCH (12:22)
--- NOTE | 2017-09-16 12:23 | General Progress Note ---
Assessment/Plan Status: not improved, unchanged Assessment/Plan # Anemia of chronic disease. --> Closely monitor for improvement. --> anemia w/u has been reviewed, will trend daily --> hgb goal >7 # Thrombocytopenia, acute onset, likely related to cirrhosis --> hepatitis panel, human immunodeficiency virus results pending --> plt goal >100 --> cont abx --> 09/14 abd US shows Cholelithiasis and trace gallbladder sludge. Poor assessment of the wall thickness. Negative sonographic Morrison sign. # Leukocytosis. --> cont abx --> monitor for improvement --> wbc improved # History of alcohol abuse. # Altered mental status, has been seen by Neurology. # Encephalopathy # Elevated troponin. # Coagulopathy Subjective Date patient seen: Sep 16, 2017 ROS Limited/Unobtainable: Yes Constitutional: Reports: malaise Allergies: Coded Allergies: PENICILLINS (Verified Allergy, Unknown, 09/13/17) All Systems: reviewed and negative except above Subjective No acute events. Plt count remains low. Vitals are stable. Objective Last 24 Hour Vital Signs Date Time Temp Pulse Resp B/P (MAP) Pulse Ox O2 Delivery O2 Flow Rate FiO2 09/16/17 09:03 78 123/65 09/16/17 08:00 98.1 78 20 123/65 96 Room Air 98.1 09/16/17 04:00 67 09/16/17 04:00 97.8 62 20 124/69 96 Room Air 97.8 09/16/17 00:00 97.6 66 22 98/64 96 Room Air 97.6 09/16/17 00:00 68 09/15/17 20:00 82 09/15/17 20:00 98.2 70 20 107/58 96 Room Air 98.2 09/15/17 16:00 66 09/15/17 16:00 97.5 66 20 110/65 97 Room Air 97.5 Intake and Output 09/15/17 09/16/17 19:00 07:00 Intake Total 1339 ml Output Total 700 ml 400 ml Balance 639 ml -400 ml Intake Oral 720 ml IV Total 619 ml Output Urine Total 700 ml 400 ml # Voids 2 1 Laboratory Tests 09/15/17 22:30: Hepatitis A IgM Antibody [Pending], Hepatitis B Surface Antigen [Pending], Hepatitis B Core IgM Antibody [Pending], Hepatitis C Antibody [Pending], HIV (1& 2) Antibody Rapid Negative 09/16/17 06:17: Hepatitis B Surface Antigen [Pending], Hepatitis C Antibody [Pending], White Blood Count 4.9, Red Blood Count 3.11L, Hemoglobin 10.5L, Hematocrit 31.1L, Mean Corpuscular Volume 100H, Mean Corpuscular Hemoglobin 33.6H, Mean Corpuscular Hemoglobin Concent 33.7, Red Cell Distribution Width 15.8H, Platelet Count 66L, Mean Platelet Volume 6.8, Neutrophils (%) (Auto) , Lymphocytes (%) (Auto) , Monocytes (%) (Auto) , Eosinophils (%) (Auto) , Basophils (%) (Auto) , Differential Total Cells Counted 100, Neutrophils % ( Manual) 64, Lymphocytes % (Manual) 20, Monocytes % (Manual) 12H, Eosinophils % ( Manual) 4H, Basophils % (Manual) 0, Band Neutrophils 0, Platelet Estimate DecreasedL, Platelet Morphology Normal, Hypochromasia 1+, Anisocytosis 1+, Sodium Level 135L, Potassium Level 3.9, Chloride Level 106, Carbon Dioxide Level 25, Anion Gap 4L, Blood Urea Nitrogen 15, Creatinine 1.0, Estimat Glomerular Filtration Rate > 60, Glucose Level 100, Lactic Acid Level 1.40, Uric Acid 2.3L, Calcium Level 7.9L, Phosphorus Level 3.0, Magnesium Level 1.8, Total Bilirubin 2.4H, Direct Bilirubin 1.1H, Aspartate Amino Transf (AST/SGOT) 65H, Alanine Aminotransferase (ALT/SGPT) 31, Alkaline Phosphatase 98, Troponin I 0.044, Pro-B-Type Natriuretic Peptide 173H, Total Protein 5.9L, Albumin 1.8L, Globulin 4.1, Albumin/Globulin Ratio 0.4L, Triglycerides Level 68, Cholesterol Level 90, LDL Cholesterol 68, HDL Cholesterol 18L, Cholesterol/HDL Ratio 5.0H, Alpha Fetoprotein [Pending], Cortisol AM Sample [Pending] Height (Feet): 5 Height (Inches): 10.00 Weight (Pounds): 190 General Appearance: no apparent distress EENT: PERRL/EOMI Neck: normal alignment Cardiovascular: normal peripheral pulses Respiratory/Chest: no respiratory distress Abdomen: soft Yung Mishra MD Sep 16, 2017 12:23
--- NOTE | 2017-09-16 12:38 | Neurology Progress Note ---
Interim History Interim History Interim History Mr. Richard feels well. The mind is clear. His memory is back to normal. The right leg is less red, less painful and less swollen. He was able to sleep well last night. He sat up in the chair for a few minutes yesterday. He denies any new neurologic symptoms. Review of Systems Neuro Review of Systems Benign. Objective Physical Exam Last Vital Signs Date Time Temp Pulse Resp B/P (MAP) Pulse Ox O2 Delivery O2 Flow Rate FiO2 09/16/17 09:03 78 123/65 09/16/17 08:00 98.1 20 96 Room Air 98.1 Laboratory Tests Test 09/15/17 22:30 09/16/17 06:17 Hepatitis A IgM Antibody Pending Hepatitis B Surface Antigen Pending Pending Hepatitis B Core IgM Antibody Pending Hepatitis C Antibody Pending Pending HIV (1&2) Antibody Rapid Negative (NEGATIVE) White Blood Count 4.9 K/UL (4.8-10.8) Red Blood Count 3.11 M/UL (4.70-6.10) L Hemoglobin 10.5 G/DL (14.2-18.0) L Hematocrit 31.1 % (42.0-52.0) L Mean Corpuscular Volume 100 FL (80-99) H Mean Corpuscular Hemoglobin 33.6 PG (27.0-31.0) H Mean Corpuscular Hemoglobin Concent 33.7 G/DL (32.0-36.0) Red Cell Distribution Width 15.8 % (11.6-14.8) H Platelet Count 66 K/UL (150-450) L Mean Platelet Volume 6.8 FL (6.5-10.1) Neutrophils (%) (Auto) % (45.0-75.0) Lymphocytes (%) (Auto) % (20.0-45.0) Monocytes (%) (Auto) % (1.0-10.0) Eosinophils (%) (Auto) % (0.0-3.0) Basophils (%) (Auto) % (0.0-2.0) Differential Total Cells Counted 100 Neutrophils % (Manual) 64 % (45-75) Lymphocytes % (Manual) 20 % (20-45) Monocytes % (Manual) 12 % (1-10) H Eosinophils % (Manual) 4 % (0-3) H Basophils % (Manual) 0 % (0-2) Band Neutrophils 0 % (0-8) Platelet Estimate Decreased L Platelet Morphology Normal Hypochromasia 1+ Anisocytosis 1+ Sodium Level 135 MMOL/L (136-145) L Potassium Level 3.9 MMOL/L (3.5-5.1) Chloride Level 106 MMOL/L (98-107) Carbon Dioxide Level 25 MMOL/L (21-32) Anion Gap 4 mmol/L (5-15) L Blood Urea Nitrogen 15 mg/dL (7-18) Creatinine 1.0 MG/DL (0.55-1.30) Estimat Glomerular Filtration Rate > 60 mL/min (>60) Glucose Level 100 MG/DL (74-106) Lactic Acid Level 1.40 mmol/L (0.4-2.0) Uric Acid 2.3 MG/DL (2.6-7.2) L Calcium Level 7.9 MG/DL (8.5-10.1) L Phosphorus Level 3.0 MG/DL (2.5-4.9) Magnesium Level 1.8 MG/DL (1.8-2.4) Total Bilirubin 2.4 MG/DL (0.2-1.0) H Direct Bilirubin 1.1 MG/DL (0.0-0.3) H Aspartate Amino Transf (AST/SGOT) 65 U/L (15-37) H Alanine Aminotransferase (ALT/SGPT) 31 U/L (12-78) Alkaline Phosphatase 98 U/L (46-116) Troponin I 0.044 ng/mL (0.000-0.056) Pro-B-Type Natriuretic Peptide 173 pg/mL (0-125) H Total Protein 5.9 G/DL (6.4-8.2) L Albumin 1.8 G/DL (3.4-5.0) L Globulin 4.1 g/dL Albumin/Globulin Ratio 0.4 (1.0-2.7) L Triglycerides Level 68 MG/DL (30-150) Cholesterol Level 90 MG/DL (< 200) LDL Cholesterol 68 mg/dL (<100) HDL Cholesterol 18 MG/DL (40-60) L Cholesterol/HDL Ratio 5.0 (3.3-4.4) H Alpha Fetoprotein Pending Cortisol AM Sample Pending Neurologic Exam Objective PHYSICAL EXAMINATION: GENERAL: He is a well-developed, well-nourished, pleasant gentleman, lying in bed, in no acute distress. HEAD: Normocephalic and atraumatic. EENT: Examination benign. NECK: No neck rigidity was observed. NEUROLOGIC EXAMINATION: MENTAL STATUS EXAMINATION: He was awake and alert. He was oriented to person, place, and time. He was able to recall 3/3 words immediately, and in 1 and 3 minutes. He was able to remember presidents, Trump through Smyth senior. His mathematical skills were good. His visuospatial function was preserved. SPEECH: He had no dysarthria. LANGUAGE: He had a mild anomia for low-frequency words. CRANIAL NERVE EXAMINATION: II: The visual freitas were intact to confrontation testing. III, IV & : External ocular movements were full and the pupils 3 mm in diameter, equal, round, regular, and reactive to light. V: He had normal facial sensations, and the temporales, masseters, and pterygoids functioned normally. VII: He had normal facial expressions and no facial asymmetry. VIII: He was able to hear well bilaterally and had no nystagmus. IX: The palate moved symmetrically on phonation. X: He had no hoarseness of voice. X: The sternocleidomastoids and trapezii functioned normally. XII: The tongue was in the midline without any fasciculations or atrophy. MOTOR SYSTEM: The tone was normal in all four extremities. Examination of muscle mass revealed no focal wasting. Examination of power revealed G 5/5 power in all muscle groups tested. SENSORY EXAMINATION: He had intact sensations to pinprick, light touch, and graphesthesia. COORDINATION: He performed well on [id number] and [id number]-[id number] testing. REFLEXES: Trace+ and bilaterally symmetrical at the biceps, triceps, brachioradialis, and knees, 0 at both ankles. The plantar responses were flexor bilaterally. STANCE: He stood up with support. GAIT: He was able to take a few steps with support. Impression/Recommendations Diagnostic Impression 1. Mr. Gerry Richard is a 72-year-old, left-handed, gentleman, who does have a past history of hypertension, dyslipidemia, aortic aneurysm repair, neuropathy, chronic pain syndrome involving his lower extremities, gastroesophageal reflux disease and cirrhosis of the liver who was hospitalized for an alteration in his mental state. For the last few days, he had noticed that his right leg had become red, swollen, and at times quite painful. Since he has been in the hospital, he feels better. 2. He feels well. The mind is clear. His memory is back to normal. The right leg is less red, less painful and less swollen. He was able to sleep well last night. He sat up in the chair for a few minutes yesterday. He denies any new neurologic symptoms. 3. On neurological examination, at this time, he is fully oriented. His recent and remote memory has normalized. He still has mild problems with higher cognitive function. He also has diminished deep tendon reflexes with loss of ankle jerks. 4. The CT scan of the brain without contrast reveals atrophy and deep white matter changes, but no acute pathology. 5. Laboratory data obtained thus far revealed that when he came in, his WBC count was elevated to 11,400. He also was anemic with a hemoglobin of 11.9 G. His chemistry panel revealed that his blood glucose was elevated to 122. His total bilirubin was elevated to 4.5. His alkaline phosphate was elevated to 124 , his AST was elevated to 72, his BNP was elevated at 753, his troponin is elevated to 0.173, and his albumin was low at 2.2. His urinalysis revealed 1+ leukocyte esterase, 5-10 RBCs, and 0-2 WBCs per high-power field with a few bacteria. His urine toxicology screen was benign. His B12 level and folate levels are normal. 6. The patient's history and neurological examination are most compatible with an acute encephalopathic process, most probably of a toxic/metabolic nature related to his acute infectious process due to right lower extremity cellulitis , and in addition a mild urinary tract infection. 7. His encephalopathy has resolved. Recommendations 1. Continue present management. 2. Continue to try to correct all toxic metabolic imbalances. 3. Increase activity as tolerated. Priya Parson M.D., M.S.P.PRIYA PHAN Sep 16, 2017 12:38
--- NOTE | 2017-09-16 12:39 | General Progress Note ---
Assessment/Plan Assessment/Plan Assessment - cirrhosis - portal HTN - resolved encephalopathy - Aortic aneurysm / graft - elevated lactic acid Recommendations - push PO - follow labs - cardiology f/u - Check HBV, HCV - Check AFP Subjective Allergies: Coded Allergies: PENICILLINS (Verified Allergy, Unknown, 09/13/17) Subjective Feels OK no abdominal pain tolerating PO Objective Last 24 Hour Vital Signs Date Time Temp Pulse Resp B/P (MAP) Pulse Ox O2 Delivery O2 Flow Rate FiO2 09/16/17 09:03 78 123/65 09/16/17 08:00 98.1 78 20 123/65 96 Room Air 98.1 09/16/17 04:00 67 09/16/17 04:00 97.8 62 20 124/69 96 Room Air 97.8 09/16/17 00:00 97.6 66 22 98/64 96 Room Air 97.6 09/16/17 00:00 68 09/15/17 20:00 82 09/15/17 20:00 98.2 70 20 107/58 96 Room Air 98.2 09/15/17 16:00 66 09/15/17 16:00 97.5 66 20 110/65 97 Room Air 97.5 Intake and Output 09/15/17 09/16/17 19:00 07:00 Intake Total 1339 ml Output Total 700 ml 400 ml Balance 639 ml -400 ml Intake Oral 720 ml IV Total 619 ml Output Urine Total 700 ml 400 ml # Voids 2 1 Laboratory Tests 09/15/17 22:30: Hepatitis A IgM Antibody [Pending], Hepatitis B Surface Antigen [Pending], Hepatitis B Core IgM Antibody [Pending], Hepatitis C Antibody [Pending], HIV (1& 2) Antibody Rapid Negative 09/16/17 06:17: Hepatitis B Surface Antigen [Pending], Hepatitis C Antibody [Pending], White Blood Count 4.9, Red Blood Count 3.11L, Hemoglobin 10.5L, Hematocrit 31.1L, Mean Corpuscular Volume 100H, Mean Corpuscular Hemoglobin 33.6H, Mean Corpuscular Hemoglobin Concent 33.7, Red Cell Distribution Width 15.8H, Platelet Count 66L, Mean Platelet Volume 6.8, Neutrophils (%) (Auto) , Lymphocytes (%) (Auto) , Monocytes (%) (Auto) , Eosinophils (%) (Auto) , Basophils (%) (Auto) , Differential Total Cells Counted 100, Neutrophils % ( Manual) 64, Lymphocytes % (Manual) 20, Monocytes % (Manual) 12H, Eosinophils % ( Manual) 4H, Basophils % (Manual) 0, Band Neutrophils 0, Platelet Estimate DecreasedL, Platelet Morphology Normal, Hypochromasia 1+, Anisocytosis 1+, Sodium Level 135L, Potassium Level 3.9, Chloride Level 106, Carbon Dioxide Level 25, Anion Gap 4L, Blood Urea Nitrogen 15, Creatinine 1.0, Estimat Glomerular Filtration Rate > 60, Glucose Level 100, Lactic Acid Level 1.40, Uric Acid 2.3L, Calcium Level 7.9L, Phosphorus Level 3.0, Magnesium Level 1.8, Total Bilirubin 2.4H, Direct Bilirubin 1.1H, Aspartate Amino Transf (AST/SGOT) 65H, Alanine Aminotransferase (ALT/SGPT) 31, Alkaline Phosphatase 98, Troponin I 0.044, Pro-B-Type Natriuretic Peptide 173H, Total Protein 5.9L, Albumin 1.8L, Globulin 4.1, Albumin/Globulin Ratio 0.4L, Triglycerides Level 68, Cholesterol Level 90, LDL Cholesterol 68, HDL Cholesterol 18L, Cholesterol/HDL Ratio 5.0H, Alpha Fetoprotein [Pending], Cortisol AM Sample [Pending] Height (Feet): 5 Height (Inches): 10.00 Weight (Pounds): 190 Objective WDWN NCAT supple CTA RRR abd soft No edema Gurmeet Bolton MD Sep 16, 2017 12:39
--- NOTE | 2017-09-16 14:09 | Cardiac Electrophysiology PN ---
Assessment/Plan Assessment/Plan 1. Troponin elevation 0.173 and 0.07 Denies any chest pain BNP was elevated at 763.Echocardiogram showed EF 55% Continue Toprol 25 daily and avoid aspirin in view of thrombocytopenia 2. Aortic aneurysm s/p stent graft. 3. Cirrhosis of liver and esophageal varices based on the CT scan. Further evaluation by Dr. Woody. 4. Evaluate liver function tests. 5. Elevated lactic acid that is leveling down. DW RN Subjective Subjective Feeling better. No events.In SR 60s. Objective Last 24 Hour Vital Signs Date Time Temp Pulse Resp B/P (MAP) Pulse Ox O2 Delivery O2 Flow Rate FiO2 09/16/17 12:00 60 09/16/17 12:00 97.5 64 18 119/66 97 Room Air 97.5 09/16/17 09:03 78 123/65 09/16/17 08:00 98.1 78 20 123/65 96 Room Air 98.1 09/16/17 08:00 65 09/16/17 04:00 67 09/16/17 04:00 97.8 62 20 124/69 96 Room Air 97.8 09/16/17 00:00 97.6 66 22 98/64 96 Room Air 97.6 09/16/17 00:00 68 09/15/17 20:00 82 09/15/17 20:00 98.2 70 20 107/58 96 Room Air 98.2 09/15/17 16:00 66 09/15/17 16:00 97.5 66 20 110/65 97 Room Air 97.5 Intake and Output 09/15/17 09/16/17 19:00 07:00 Intake Total 1339 ml Output Total 700 ml 400 ml Balance 639 ml -400 ml Intake Oral 720 ml IV Total 619 ml Output Urine Total 700 ml 400 ml # Voids 2 1 Laboratory Tests Test 09/15/17 22:30 09/16/17 06:17 Hepatitis A IgM Antibody Pending Hepatitis B Surface Antigen Pending Pending Hepatitis B Core IgM Antibody Pending Hepatitis C Antibody Pending Pending HIV (1&2) Antibody Rapid Negative (NEGATIVE) White Blood Count 4.9 K/UL (4.8-10.8) Red Blood Count 3.11 M/UL (4.70-6.10) L Hemoglobin 10.5 G/DL (14.2-18.0) L Hematocrit 31.1 % (42.0-52.0) L Mean Corpuscular Volume 100 FL (80-99) H Mean Corpuscular Hemoglobin 33.6 PG (27.0-31.0) H Mean Corpuscular Hemoglobin Concent 33.7 G/DL (32.0-36.0) Red Cell Distribution Width 15.8 % (11.6-14.8) H Platelet Count 66 K/UL (150-450) L Mean Platelet Volume 6.8 FL (6.5-10.1) Neutrophils (%) (Auto) % (45.0-75.0) Lymphocytes (%) (Auto) % (20.0-45.0) Monocytes (%) (Auto) % (1.0-10.0) Eosinophils (%) (Auto) % (0.0-3.0) Basophils (%) (Auto) % (0.0-2.0) Differential Total Cells Counted 100 Neutrophils % (Manual) 64 % (45-75) Lymphocytes % (Manual) 20 % (20-45) Monocytes % (Manual) 12 % (1-10) H Eosinophils % (Manual) 4 % (0-3) H Basophils % (Manual) 0 % (0-2) Band Neutrophils 0 % (0-8) Platelet Estimate Decreased L Platelet Morphology Normal Hypochromasia 1+ Anisocytosis 1+ Sodium Level 135 MMOL/L (136-145) L Potassium Level 3.9 MMOL/L (3.5-5.1) Chloride Level 106 MMOL/L (98-107) Carbon Dioxide Level 25 MMOL/L (21-32) Anion Gap 4 mmol/L (5-15) L Blood Urea Nitrogen 15 mg/dL (7-18) Creatinine 1.0 MG/DL (0.55-1.30) Estimat Glomerular Filtration Rate > 60 mL/min (>60) Glucose Level 100 MG/DL (74-106) Lactic Acid Level 1.40 mmol/L (0.4-2.0) Uric Acid 2.3 MG/DL (2.6-7.2) L Calcium Level 7.9 MG/DL (8.5-10.1) L Phosphorus Level 3.0 MG/DL (2.5-4.9) Magnesium Level 1.8 MG/DL (1.8-2.4) Total Bilirubin 2.4 MG/DL (0.2-1.0) H Direct Bilirubin 1.1 MG/DL (0.0-0.3) H Aspartate Amino Transf (AST/SGOT) 65 U/L (15-37) H Alanine Aminotransferase (ALT/SGPT) 31 U/L (12-78) Alkaline Phosphatase 98 U/L (46-116) Troponin I 0.044 ng/mL (0.000-0.056) Pro-B-Type Natriuretic Peptide 173 pg/mL (0-125) H Total Protein 5.9 G/DL (6.4-8.2) L Albumin 1.8 G/DL (3.4-5.0) L Globulin 4.1 g/dL Albumin/Globulin Ratio 0.4 (1.0-2.7) L Triglycerides Level 68 MG/DL (30-150) Cholesterol Level 90 MG/DL (< 200) LDL Cholesterol 68 mg/dL (<100) HDL Cholesterol 18 MG/DL (40-60) L Cholesterol/HDL Ratio 5.0 (3.3-4.4) H Alpha Fetoprotein Pending Cortisol AM Sample Pending Microbiology Date/Time Source Procedure Growth Status 09/13/17 20:45 Blood Blood Culture - Preliminary NO GROWTH AFTER 48 HOURS Resulted 09/13/17 20:25 Blood Blood Culture - Preliminary NO GROWTH AFTER 48 HOURS Resulted 09/14/17 03:00 Nasal Nares MRSA Culture - Final Staphylococcus Aureus - Mrsa Complete 09/14/17 03:00 Rectum - Final NO CARBAPENEM-RESISTANT ENTEROBACTERI... Complete 09/14/17 03:00 Rectum VRE Culture - Final NO VANCOMYCIN RESISTANT ENTEROCOCCUS ... Complete Objective HEAD AND NECK: No JVD or carotid bruits. LUNGS: Clear. CARDIOVASCULAR: Regular S1 and S2 with no gallop or murmur. ABDOMEN: Soft and obese. EXTREMITIES: No pitting edema. Evan Dolan MD Sep 16, 2017 14:09
[2017-09-16 16:00] VITALS: BP 110/56
[2017-09-16 20:00] VITALS: BP 107/61
[2017-09-17] VITALS: BP 115/60
[2017-09-17 04:00] VITALS: BP 112/65
[2017-09-17] MEDS: D5NS 1,000 ML IV SCH (05:04)
[2017-09-17 08:00] VITALS: BP 112/68
[2017-09-17] MEDS: Metoprolol Succinate XL 25mg tab ORAL SCH (08:44)
--- NOTE | 2017-09-17 09:14 | Cardiology Report ---
APPROVED REPORT EXAM: Two-dimensional and M-mode echocardiogram with Doppler and color Doppler. INDICATION Syncope M-Mode DIMENSIONS IVSd1.2 (0.7-1.1cm)Left Atrium (MM)4.0 (1.6-4.0cm) LVDd5.8 (3.5-5.6cm)Aortic Root4.0 (2.0-3.7cm) PWd1.2 (0.7-1.1cm)Aortic Cusp Exc.2.0 (1.5-2.0cm) LVDs3.8 (2.5-4.0cm) PWs1.4 cm Normal left ventricular chamber size, systolic function and wall motion. Left ventricular ejection fraction estimated to be 60-65 %. Mild left ventricular hypertrophy. No evidence of pericardial or pleural effusion. Right cardiac chamber sizes are within normal limits. Mild left atrial enlargement by 2D. Focal aortic valve sclerosis with adequate cusp excursion. Thickened mitral valve leaflets with normal excursion. Mild mitral annulus and aortic root calcification. Pulmonic valve not well visualized. Normal tricuspid valve structure. IVC is not obtainable. A color flow and spectral Doppler study was performed and revealed: Mild aortic regurgitation. Trace mitral regurgitation. Mitral inflow velocities indicates possible pseudo normalization pattern implying significant left ventricular diastolic dysfunction. Trace tricuspid regurgitation.
[2017-09-17] MEDS ORDERED: D5NS 1000ml IV ONE (09:37)
--- NOTE | 2017-09-17 09:58 | GI Progress Note ---
Assessment/Plan Problems: (1) Elevated troponin ICD Codes: R74.8 - Abnormal levels of other serum enzymes SNOMED: 481270243, 373617797, 256459769 (2) Altered level of consciousness ICD Codes: R40.4 - Transient alteration of awareness SNOMED: 7798553 (3) Encephalopathy acute ICD Codes: G93.40 - Encephalopathy, unspecified SNOMED: 40589302, 981923549 (4) Cirrhosis ICD Codes: K74.60 - Unspecified cirrhosis of liver SNOMED: 49507614, 262044307 Status: stable Status Narrative Discussed with Dr. Woody. Assessment/Plan Assessment - cirrhosis - portal HTN - resolved encephalopathy - Aortic aneurysm / graft - elevated lactic acid Recommendations - push PO - follow labs - cardiology f/u - Check HBV, HCV - Check AFP The patient was seen and examined at bedside and all new and available data was reviewed in the patients chart. I agree with the above findings, impression and plan. (Patient seen earlier today. Signature stamp does not reflect patient encounter time.). - Gabriel Woody MD Subjective Gastrointestinal/Abdominal: Reports: no symptoms Objective Last 24 Hour Vital Signs Date Time Temp Pulse Resp B/P (MAP) Pulse Ox O2 Delivery O2 Flow Rate FiO2 09/17/17 08:44 63 112/68 09/17/17 08:00 97.7 63 20 112/68 98 Room Air 97.7 09/17/17 04:00 97.9 65 18 112/65 97 Room Air 97.9 09/17/17 04:00 66 09/17/17 00:00 98.1 63 18 115/60 97 Room Air 98.1 09/17/17 00:00 64 09/16/17 20:00 69 09/16/17 20:00 97.9 67 20 107/61 96 Room Air 97.9 09/16/17 16:00 63 09/16/17 16:00 97.5 64 20 110/56 97 Room Air 97.5 09/16/17 12:00 60 09/16/17 12:00 97.5 64 18 119/66 97 Room Air 97.5 Intake and Output 09/16/17 09/17/17 19:00 07:00 Intake Total 1041 ml 50 ml Output Total 400 ml Balance 1041 ml -350 ml Intake Oral 240 ml IV Total 801 ml 50 ml Output Urine Total 400 ml Height (Feet): 5 Height (Inches): 10.00 Weight (Pounds): 190 General Appearance: WD/WN, no apparent distress, alert Cardiovascular: normal rate Respiratory/Chest: normal breath sounds, no respiratory distress Abdominal Exam: normal bowel sounds, non tender, soft Extremities: normal range of motion, non-tender Valentin Price NP Sep 17, 2017 09:58
--- NOTE | 2017-09-17 10:07 | Diagnostic Imaging Report ---
APPROVED REPORT CPT Code: 74025 Present Symptoms Comments: Hx of Aortic aneurysm R/O DVT BILATERAL: Imaging reveals a patent deep venous system bilaterally. There is no evidence of thrombus within the femoral, popliteal or tibial segments. The greater saphenous veins are also within normal limits. Doppler indicates normal spontaneous flow within these segments.
--- NOTE | 2017-09-17 11:14 | General Progress Note ---
Assessment/Plan Assessment/Plan Encephalopathy improving Anxiety d/o -Sroquel prn Subjective Date patient seen: Sep 16, 2017 Neurologic/Psychiatric: Reports: anxiety, depressed, emotional problems Allergies: Coded Allergies: PENICILLINS (Verified Allergy, Unknown, 09/13/17) Objective Last 24 Hour Vital Signs Date Time Temp Pulse Resp B/P (MAP) Pulse Ox O2 Delivery O2 Flow Rate FiO2 09/17/17 08:44 63 112/68 09/17/17 08:00 97.7 63 20 112/68 98 Room Air 97.7 09/17/17 04:00 97.9 65 18 112/65 97 Room Air 97.9 09/17/17 04:00 66 09/17/17 00:00 98.1 63 18 115/60 97 Room Air 98.1 09/17/17 00:00 64 09/16/17 20:00 69 09/16/17 20:00 97.9 67 20 107/61 96 Room Air 97.9 09/16/17 16:00 63 09/16/17 16:00 97.5 64 20 110/56 97 Room Air 97.5 09/16/17 12:00 60 09/16/17 12:00 97.5 64 18 119/66 97 Room Air 97.5 Intake and Output 09/16/17 09/17/17 19:00 07:00 Intake Total 1041 ml 50 ml Output Total 400 ml Balance 1041 ml -350 ml Intake Oral 240 ml IV Total 801 ml 50 ml Output Urine Total 400 ml Height (Feet): 5 Height (Inches): 10.00 Weight (Pounds): 190 General Appearance: no apparent distress, alert Yusuf Cisneros MD Sep 17, 2017 11:14
--- NOTE | 2017-09-17 11:30 | General Progress Note ---
Assessment/Plan Status: stable Assessment/Plan # Anemia of chronic disease. --> Closely monitor for improvement. --> anemia w/u has been reviewed, shows ACD, no iron deficiency, will trend daily --> hgb goal >7 # Thrombocytopenia, acute onset, likely related to cirrhosis --> hepatitis panel, human immunodeficiency virus results pending --> plt goal >100 --> cont abx --> 09/14 abd US shows Cholelithiasis and trace gallbladder sludge. Poor assessment of the wall thickness. Negative sonographic Morrison sign. # Leukocytosis. --> cont abx --> monitor for improvement --> wbc improved # Upper ext swelling --> DUPLEX of the upper ext ordered # History of alcohol abuse. # Altered mental status, has been seen by Neurology. # Encephalopathy # Elevated troponin. # Coagulopathy Subjective Date patient seen: Sep 17, 2017 ROS Limited/Unobtainable: Yes Allergies: Coded Allergies: PENICILLINS (Verified Allergy, Unknown, 09/13/17) All Systems: reviewed and negative except above Subjective No acute events. Plt count remains low. Vitals are stable. DC planning. Objective Last 24 Hour Vital Signs Date Time Temp Pulse Resp B/P (MAP) Pulse Ox O2 Delivery O2 Flow Rate FiO2 09/17/17 08:44 63 112/68 09/17/17 08:00 97.7 63 20 112/68 98 Room Air 97.7 09/17/17 04:00 97.9 65 18 112/65 97 Room Air 97.9 09/17/17 04:00 66 09/17/17 00:00 98.1 63 18 115/60 97 Room Air 98.1 09/17/17 00:00 64 09/16/17 20:00 69 09/16/17 20:00 97.9 67 20 107/61 96 Room Air 97.9 09/16/17 16:00 63 09/16/17 16:00 97.5 64 20 110/56 97 Room Air 97.5 09/16/17 12:00 60 09/16/17 12:00 97.5 64 18 119/66 97 Room Air 97.5 Intake and Output 09/16/17 09/17/17 19:00 07:00 Intake Total 1041 ml 50 ml Output Total 400 ml Balance 1041 ml -350 ml Intake Oral 240 ml IV Total 801 ml 50 ml Output Urine Total 400 ml Height (Feet): 5 Height (Inches): 10.00 Weight (Pounds): 190 General Appearance: no apparent distress, alert EENT: PERRL/EOMI Neck: normal alignment Cardiovascular: normal peripheral pulses Respiratory/Chest: no respiratory distress Abdomen: soft Yung Mishra MD Sep 17, 2017 11:30
[2017-09-17 12:00] VITALS: BP 121/70
--- NOTE | 2017-09-17 13:21 | Nephrology Progress Note ---
Assessment/Plan Problem List: (1) Cirrhosis Assessment: hypoalbuminemia and decrease albumin production (2) Encephalopathy acute (3) Proteinuria (4) Elevated troponin Assessment Hypoalbuminemia Proteinuria Cirrhosis Encephalopathy elevated Troponin Plan no new labs 24 H urine total protein minimal per cardio / GI Change IV fluid gastric support Subjective ROS Limited/Unobtainable: No Constitutional: Reports: malaise Objective Objective Last 24 Hour Vital Signs Date Time Temp Pulse Resp B/P (MAP) Pulse Ox O2 Delivery O2 Flow Rate FiO2 09/17/17 08:44 63 112/68 09/17/17 08:00 97.7 63 20 112/68 98 Room Air 97.7 09/17/17 04:00 97.9 65 18 112/65 97 Room Air 97.9 09/17/17 04:00 66 09/17/17 00:00 98.1 63 18 115/60 97 Room Air 98.1 09/17/17 00:00 64 09/16/17 20:00 69 09/16/17 20:00 97.9 67 20 107/61 96 Room Air 97.9 09/16/17 16:00 63 09/16/17 16:00 97.5 64 20 110/56 97 Room Air 97.5 Intake and Output 09/16/17 09/17/17 19:00 07:00 Intake Total 1041 ml 50 ml Output Total 400 ml Balance 1041 ml -350 ml Intake Oral 240 ml IV Total 801 ml 50 ml Output Urine Total 400 ml Current Medications Medications (Trade) Dose Ordered Sig/Zia Route PRN Reason Start Time Stop Time Status Last Admin Dose Admin Dextrose/Sodium Chloride 1,000 ml @ 50 mls/hr Q20H IV 09/15/17 13:00 10/15/17 12:59 09/17/17 05:04 Iopamidol (Isovue-370 150ml) 150 ml NOW PRN INJ Radiology Procedure 09/13/17 22:30 Levofloxacin (Levaquin) 750 mg Q24H ORAL 09/14/17 20:00 09/21/17 19:59 09/16/17 21:22 Metoprolol Succinate (Toprol XL) 25 mg DAILY ORAL 09/15/17 09:00 10/15/17 08:59 09/17/17 08:44 Pantoprazole (Protonix) 40 mg DAILY ORAL 09/15/17 13:00 10/15/17 12:59 09/17/17 08:44 Quetiapine Fumarate (SEROquel) 25 mg Q6H PRN ORAL For Anxiety 09/14/17 15:00 10/14/17 14:59 Vancomycin HCl (Vanco rx to dose) 1 ea DAILY PRN MISC Per rx protocol 09/14/17 11:30 10/14/17 11:29 Vancomycin HCl/ Dextrose 250 ml @ 125 mls/hr Q24H IVPB 09/15/17 13:00 09/20/17 12:59 09/16/17 12:22 Laboratory Tests 09/17/17 12:24: Vancomycin Level Trough [Pending] Height (Feet): 5 Height (Inches): 10.00 Weight (Pounds): 190 General Appearance: no apparent distress Respiratory/Chest: decreased breath sounds Abdomen: distended MEDINA LYNCH Sep 17, 2017 13:21
--- NOTE | 2017-09-17 13:56 | Infectious Diseases Prog Note ---
Assessment/Plan Assessment/Plan A 1, right leg cellulitis 2. hypertension 3. cirrhosis 4. MRSA colonization 5. AMS resolved 6. Anemia & Thrombocytopenia P 1. continue iv vancomycin, for 1 week 2 Discontinue Levaquin 2. wound culture from right arm blister Subjective ROS Limited/Unobtainable: No Cardiovascular: Reports: no symptoms Gastrointestinal/Abdominal: Reports: no symptoms Genitourinary: Reports: no symptoms Musculoskeletal: Reports: other - itching, blister in R arm Allergies: Coded Allergies: PENICILLINS (Verified Allergy, Unknown, 09/13/17) Objective Vital Signs Last 24 Hour Vital Signs Date Time Temp Pulse Resp B/P (MAP) Pulse Ox O2 Delivery O2 Flow Rate FiO2 09/17/17 12:00 63 09/17/17 08:44 63 112/68 09/17/17 08:00 97.7 63 20 112/68 98 Room Air 97.7 09/17/17 08:00 67 09/17/17 04:00 97.9 65 18 112/65 97 Room Air 97.9 09/17/17 04:00 66 09/17/17 00:00 98.1 63 18 115/60 97 Room Air 98.1 09/17/17 00:00 64 09/16/17 20:00 69 09/16/17 20:00 97.9 67 20 107/61 96 Room Air 97.9 09/16/17 16:00 63 09/16/17 16:00 97.5 64 20 110/56 97 Room Air 97.5 Height (Feet): 5 Height (Inches): 10.00 Weight (Pounds): 190 General Appearance: no acute distress HEENT: mucous membranes moist Respiratory/Chest: normal breath sounds Cardiovascular: normal rate Abdomen: soft, non tender Extremities: no edema Skin: other - decreasing eryrhema of R leg, clear liquid fluid in right arm Neurologic/Psychiatric: alert, oriented x 3, responsive Laboratory Tests Test 09/17/17 12:24 Vancomycin Level Trough 8.9 ug/mL (5.0-12.0) Current Medications Medications (Trade) Dose Ordered Sig/Zia Route PRN Reason Start Time Stop Time Status Last Admin Dose Admin Dextrose/Sodium Chloride 1,000 ml @ 50 mls/hr Q20H IV 09/15/17 13:00 10/15/17 12:59 09/17/17 05:04 Iopamidol (Isovue-370 150ml) 150 ml NOW PRN INJ Radiology Procedure 09/13/17 22:30 Levofloxacin (Levaquin) 750 mg Q24H ORAL 09/14/17 20:00 09/21/17 19:59 09/16/17 21:22 Metoprolol Succinate (Toprol XL) 25 mg DAILY ORAL 09/15/17 09:00 10/15/17 08:59 09/17/17 08:44 Pantoprazole (Protonix) 40 mg DAILY ORAL 09/15/17 13:00 10/15/17 12:59 09/17/17 08:44 Quetiapine Fumarate (SEROquel) 25 mg Q6H PRN ORAL For Anxiety 09/14/17 15:00 10/14/17 14:59 Vancomycin HCl (Vanco rx to dose) 1 ea DAILY PRN MISC Per rx protocol 09/14/17 11:30 10/14/17 11:29 Vancomycin HCl/ Dextrose 250 ml @ 125 mls/hr Q24H IVPB 09/15/17 13:00 09/20/17 12:59 09/16/17 12:22 Von Hutchison MD Sep 17, 2017 13:56
--- NOTE | 2017-09-17 14:01 | General Progress Note ---
Assessment/Plan Problem List: (1) Cirrhosis ICD Codes: K74.60 - Unspecified cirrhosis of liver SNOMED: 47235195, 177178043 (2) Encephalopathy acute ICD Codes: G93.40 - Encephalopathy, unspecified SNOMED: 10528639, 787333867 (3) Altered level of consciousness ICD Codes: R40.4 - Transient alteration of awareness SNOMED: 9145220 (4) Elevated troponin ICD Codes: R74.8 - Abnormal levels of other serum enzymes SNOMED: 440465800, 501354536, 465155343 Assessment/Plan has fluid filled blister on right arm needs snf for continuation of iv abx afebrile ue edema ordered imaging sepsis platelt is dropping consulted heme/onc for low platlet cirrhosis Subjective ROS Limited/Unobtainable: Yes Allergies: Coded Allergies: PENICILLINS (Verified Allergy, Unknown, 09/13/17) Objective Last 24 Hour Vital Signs Date Time Temp Pulse Resp B/P (MAP) Pulse Ox O2 Delivery O2 Flow Rate FiO2 09/17/17 12:00 63 09/17/17 08:44 63 112/68 09/17/17 08:00 97.7 63 20 112/68 98 Room Air 97.7 09/17/17 08:00 67 09/17/17 04:00 97.9 65 18 112/65 97 Room Air 97.9 09/17/17 04:00 66 09/17/17 00:00 98.1 63 18 115/60 97 Room Air 98.1 09/17/17 00:00 64 09/16/17 20:00 69 09/16/17 20:00 97.9 67 20 107/61 96 Room Air 97.9 09/16/17 16:00 63 09/16/17 16:00 97.5 64 20 110/56 97 Room Air 97.5 Intake and Output 09/16/17 09/17/17 19:00 07:00 Intake Total 1041 ml 50 ml Output Total 400 ml Balance 1041 ml -350 ml Intake Oral 240 ml IV Total 801 ml 50 ml Output Urine Total 400 ml Laboratory Tests 09/17/17 12:24: Vancomycin Level Trough 8.9 Height (Feet): 5 Height (Inches): 10.00 Weight (Pounds): 190 Cardiovascular: normal rate Respiratory/Chest: lungs clear Abdomen: soft Julio C Ward MD Sep 17, 2017 14:01
[2017-09-17] MEDS: Vancomycin 1.5 GM/D5W 250ML IVPB SCH (14:45)
--- NOTE | 2017-09-17 15:16 | Cardiac Electrophysiology PN ---
Assessment/Plan Assessment/Plan 1. Troponin elevation 0.173 and 0.07. Denies any chest pain BNP was 763. Echocardiogram showed EF 55% Continue Toprol 25 daily and avoid aspirin in view of thrombocytopenia 2. Aortic aneurysm s/p stent graft. 3. Cirrhosis of liver and esophageal varices based on the CT scan. Further evaluation by Dr. Woody. 4. Evaluate liver function tests. 5. Elevated lactic acid that is leveling down. 6. Right leg cellulitis. On Vancomycin Dr Kianna LEDESMA RN DC planning tomorrow to SNIF Subjective Subjective Feeling better. No CP or SOB and no arrhythmias Objective Last 24 Hour Vital Signs Date Time Temp Pulse Resp B/P (MAP) Pulse Ox O2 Delivery O2 Flow Rate FiO2 09/17/17 12:00 63 09/17/17 08:44 63 112/68 09/17/17 08:00 97.7 63 20 112/68 98 Room Air 97.7 09/17/17 08:00 67 09/17/17 04:00 97.9 65 18 112/65 97 Room Air 97.9 09/17/17 04:00 66 09/17/17 00:00 98.1 63 18 115/60 97 Room Air 98.1 09/17/17 00:00 64 09/16/17 20:00 69 09/16/17 20:00 97.9 67 20 107/61 96 Room Air 97.9 09/16/17 16:00 63 09/16/17 16:00 97.5 64 20 110/56 97 Room Air 97.5 Intake and Output 09/16/17 09/17/17 19:00 07:00 Intake Total 1041 ml 50 ml Output Total 400 ml Balance 1041 ml -350 ml Intake Oral 240 ml IV Total 801 ml 50 ml Output Urine Total 400 ml Laboratory Tests Test 09/17/17 12:24 Vancomycin Level Trough 8.9 ug/mL (5.0-12.0) Objective HEAD AND NECK: No JVD LUNGS: Clear. CARDIOVASCULAR: Regular S1 and S2 with no gallop or murmur. ABDOMEN: Soft and obese. EXTREMITIES: No pitting edema.Right thigh cellulitis better Evan Dolan MD Sep 17, 2017 15:16
[2017-09-17 16:00] VITALS: BP 114/86
--- NOTE | 2017-09-17 17:48 | General Progress Note ---
Assessment/Plan Status: stable Assessment/Plan Encephalopathy improving Anxiety d/o -Sroquel prn Subjective Date patient seen: Sep 17, 2017 Neurologic/Psychiatric: Reports: anxiety, emotional problems Allergies: Coded Allergies: PENICILLINS (Verified Allergy, Unknown, 09/13/17) Subjective the pt is forgetful and anxious. the pt is worried about discharge Objective Last 24 Hour Vital Signs Date Time Temp Pulse Resp B/P (MAP) Pulse Ox O2 Delivery O2 Flow Rate FiO2 09/17/17 12:00 63 09/17/17 08:44 63 112/68 09/17/17 08:00 97.7 63 20 112/68 98 Room Air 97.7 09/17/17 08:00 67 09/17/17 04:00 97.9 65 18 112/65 97 Room Air 97.9 09/17/17 04:00 66 09/17/17 00:00 98.1 63 18 115/60 97 Room Air 98.1 09/17/17 00:00 64 09/16/17 20:00 69 09/16/17 20:00 97.9 67 20 107/61 96 Room Air 97.9 Intake and Output 09/16/17 09/17/17 19:00 07:00 Intake Total 1041 ml 50 ml Output Total 400 ml Balance 1041 ml -350 ml Intake Oral 240 ml IV Total 801 ml 50 ml Output Urine Total 400 ml Laboratory Tests 09/17/17 12:24: Vancomycin Level Trough 8.9 Height (Feet): 5 Height (Inches): 10.00 Weight (Pounds): 190 General Appearance: WD/WN, no apparent distress, alert Neurologic: oriented x 3, responsive, depressed affect Yusuf Cisneros MD Sep 17, 2017 17:48
[2017-09-17 20:00] VITALS: BP 97/51
--- NOTE | 2017-09-17 20:06 | Neurology Progress Note ---
Interim History Interim History Interim History Mr. Richard feels well. The mind is clear. His memory is back to normal. The right leg is less red, less painful and less swollen. His right upper arm blister was lanced today. He was able to sleep well last night. He walked a little with the therapist today. He denies any new neurologic symptoms. He is eager to go home. Review of Systems Neuro Review of Systems Benign. Objective Physical Exam Last Vital Signs Date Time Temp Pulse Resp B/P (MAP) Pulse Ox O2 Delivery O2 Flow Rate FiO2 09/17/17 16:00 63 09/17/17 16:00 97.6 18 114/86 98 Room Air 97.6 Laboratory Tests Test 09/17/17 12:24 Vancomycin Level Trough 8.9 ug/mL (5.0-12.0) Neurologic Exam Objective PHYSICAL EXAMINATION: GENERAL: He is a well-developed, well-nourished, pleasant gentleman, lying in bed, in no acute distress. HEAD: Normocephalic and atraumatic. EENT: Examination benign. NECK: No neck rigidity was observed. NEUROLOGIC EXAMINATION: MENTAL STATUS EXAMINATION: He was awake and alert. He was oriented to person, place, and time. He was able to recall 3/3 words immediately, and in 1 and 3 minutes. He was able to remember presidents, Trump through Smyth senior. His mathematical skills were good. His visuospatial function was preserved. SPEECH: He had no dysarthria. LANGUAGE: He had a mild anomia for low-frequency words. CRANIAL NERVE EXAMINATION: II: The visual freitas were intact to confrontation testing. III, IV & : External ocular movements were full and the pupils 3 mm in diameter, equal, round, regular, and reactive to light. V: He had normal facial sensations, and the temporales, masseters, and pterygoids functioned normally. VII: He had normal facial expressions and no facial asymmetry. VIII: He was able to hear well bilaterally and had no nystagmus. IX: The palate moved symmetrically on phonation. X: He had no hoarseness of voice. X: The sternocleidomastoids and trapezii functioned normally. XII: The tongue was in the midline without any fasciculations or atrophy. MOTOR SYSTEM: The tone was normal in all four extremities. Examination of muscle mass revealed no focal wasting. Examination of power revealed G 5/5 power in all muscle groups tested. SENSORY EXAMINATION: He had intact sensations to pinprick, light touch, and graphesthesia. COORDINATION: He performed well on [id number] and [id number] testing. REFLEXES: Trace+ and bilaterally symmetrical at the biceps, triceps, brachioradialis, and knees, 0 at both ankles. The plantar responses were flexor bilaterally. STANCE: He stood up with support. GAIT: He was able to take a few steps with support. Impression/Recommendations Diagnostic Impression 1. Mr. Gerry Richard is a 72-year-old, left-handed, gentleman, who does have a past history of hypertension, dyslipidemia, aortic aneurysm repair, neuropathy, chronic pain syndrome involving his lower extremities, gastroesophageal reflux disease and cirrhosis of the liver who was hospitalized for an alteration in his mental state. For the last few days, he had noticed that his right leg had become red, swollen, and at times quite painful. Since he has been in the hospital, he feels better. 2. He feels well. The mind is clear. His memory is back to normal. The right leg is less red, less painful and less swollen. His right upper arm blister was lanced today. He was able to sleep well last night. He walked a little with the therapist today. He denies any new neurologic symptoms. He is eager to go home. 3. On neurological examination, at this time, he is fully oriented. His recent and remote memory has normalized. He still has mild problems with higher cognitive function. He also has diminished deep tendon reflexes with loss of ankle jerks. 4. The CT scan of the brain without contrast reveals atrophy and deep white matter changes, but no acute pathology. 5. Laboratory data obtained thus far revealed that when he came in, his WBC count was elevated to 11,400. He also was anemic with a hemoglobin of 11.9 G. His chemistry panel revealed that his blood glucose was elevated to 122. His total bilirubin was elevated to 4.5. His alkaline phosphate was elevated to 124 , his AST was elevated to 72, his BNP was elevated at 753, his troponin is elevated to 0.173, and his albumin was low at 2.2. His urinalysis revealed 1+ leukocyte esterase, 5-10 RBCs, and 0-2 WBCs per high-power field with a few bacteria. His urine toxicology screen was benign. His B12 level and folate levels are normal. 6. The patient's history and neurological examination are most compatible with an acute encephalopathic process, most probably of a toxic/metabolic nature related to his acute infectious process due to right lower extremity cellulitis , and in addition a mild urinary tract infection. 7. His encephalopathy has resolved. Recommendations 1. Continue present management. 2. Continue to try to correct all toxic metabolic imbalances. 3. Increase activity as tolerated. Priya Fraser M.D., M.S.P.Alfredo. PRIYA FRASER Sep 17, 2017 20:06
[2017-09-18] VITALS: BP 114/72
[2017-09-18] MEDS: D5NS 1,000 ML IV SCH (01:33)
[2017-09-18 04:00] VITALS: BP 115/65
[2017-09-18] MEDS ORDERED: Vancomycin 1gm/D5W 275ml IVPB SCH ×2 (04:00)
[2017-09-18 08:00] VITALS: BP 118/71
[2017-09-18 08:36] LABS: HEMATOCRIT 33.9 % (42.0-52.0); HEMOGLOBIN 11.3 G/DL (14.2-18.0); MEAN CORPUSCULAR VOLUME 101 FL (80-99); PLATELET COUNT 96 K/UL (150-450); RED BLOOD COUNT 3.34 M/UL (4.70-6.10); RED CELL DISTRIBUTION WIDTH 16.1 % (11.6-14.8); WHITE BLOOD COUNT 5.4 K/UL (4.8-10.8)
[2017-09-18 08:42] LABS: INR 1.3 (0.9-1.1)
[2017-09-18 09:01] LABS: AMMONIA 75 umol/L (11-32)
[2017-09-18 09:08] LABS: ALANINE AMINOTRANSFERASE 28 U/L (12-78); ALBUMIN/GLOBULIN RATIO 0.4 (1.0-2.7); ALKALINE PHOSPHATASE 119 U/L (46-116); ANION GAP 4 mmol/L (5-15); ASPARTATE AMINO TRANSFERASE 64 U/L (15-37); BILIRUBIN,TOTAL 2.6 MG/DL (0.2-1.0); BLOOD UREA NITROGEN 14 mg/dL (7-18); CALCIUM 8.2 MG/DL (8.5-10.1); CARBON DIOXIDE 25 MMOL/L (21-32); CHLORIDE 106 MMOL/L (98-107); SODIUM 135 MMOL/L (136-145)
[2017-09-18] MEDS: Metoprolol Succinate XL 25mg tab ORAL SCH (09:45)
--- NOTE | 2017-09-18 10:48 | Nephrology Progress Note ---
Assessment/Plan Problem List: (1) Cirrhosis Assessment: hypoalbuminemia and decrease albumin production (2) Encephalopathy acute (3) Proteinuria (4) Elevated troponin Assessment stable from renal stand Hypoalbuminemia Proteinuria Cirrhosis Encephalopathy elevated Troponin Plan 24 H urine total protein minimal per cardio / GI Change IV fluid gastric support ? DC Subjective ROS Limited/Unobtainable: No Objective Objective Last 24 Hour Vital Signs Date Time Temp Pulse Resp B/P (MAP) Pulse Ox O2 Delivery O2 Flow Rate FiO2 09/18/17 09:45 63 118/71 09/18/17 08:00 97.7 63 18 118/71 98 Room Air 97.7 09/18/17 04:00 67 09/18/17 04:00 97.8 60 18 115/65 96 Room Air 97.8 09/18/17 00:00 60 09/18/17 00:00 97.7 62 20 114/72 94 Room Air 97.7 09/17/17 20:00 66 09/17/17 20:00 99.0 60 18 97/51 97 Room Air 99.0 09/17/17 16:00 63 09/17/17 16:00 97.6 62 18 114/86 98 Room Air 97.6 09/17/17 12:00 63 09/17/17 12:00 98.1 96 18 121/70 94 Room Air 98.1 Intake and Output 09/17/17 09/18/17 19:00 07:00 Intake Total 770 ml 1248.000 ml Output Total 700 ml 750 ml Balance 70 ml 498.000 ml Intake Oral 720 ml 500 ml IV Total 50 ml 748.000 ml Output Urine Total 700 ml 750 ml # Bowel Movements 13 Laboratory Tests 09/17/17 12:24: Vancomycin Level Trough 8.9 09/18/17 08:00: White Blood Count 5.4, Red Blood Count 3.34L, Hemoglobin 11.3L, Hematocrit 33.9L , Mean Corpuscular Volume 101H, Mean Corpuscular Hemoglobin 33.8H, Mean Corpuscular Hemoglobin Concent 33.3, Red Cell Distribution Width 16.1H, Platelet Count 96L, Mean Platelet Volume 6.4L, Neutrophils (%) (Auto) , Lymphocytes (%) (Auto) , Monocytes (%) (Auto) , Eosinophils (%) (Auto) , Basophils (%) (Auto) , Differential Total Cells Counted 100, Neutrophils % ( Manual) 46, Lymphocytes % (Manual) 34, Monocytes % (Manual) 7, Eosinophils % ( Manual) 11H, Basophils % (Manual) 2, Band Neutrophils 0, Platelet Estimate DecreasedL, Platelet Morphology Normal, Anisocytosis 1+, Macrocytosis 1+, Prothrombin Time 13.5H, Prothromb Time International Ratio 1.3H, Sodium Level 135L, Potassium Level 4.0, Chloride Level 106, Carbon Dioxide Level 25, Anion Gap 4L, Blood Urea Nitrogen 14, Creatinine 1.0, Estimat Glomerular Filtration Rate > 60, Glucose Level 101, Calcium Level 8.2L, Total Bilirubin 2.6H, Direct Bilirubin 1.0H, Aspartate Amino Transf (AST/SGOT) 64H, Alanine Aminotransferase (ALT/SGPT) 28, Alkaline Phosphatase 119H, Ammonia 75H, Total Protein 6.8, Albumin 2.0L, Globulin 4.8, Albumin/Globulin Ratio 0.4L Height (Feet): 5 Height (Inches): 10.00 Weight (Pounds): 190 General Appearance: no apparent distress Objective no change MEDINA LYNCH Sep 18, 2017 10:48
--- NOTE | 2017-09-18 11:40 | Infectious Diseases Prog Note ---
Assessment/Plan Assessment/Plan A 1, right leg cellulitis improving 2. hypertension 3. cirrhosis 4. MRSA colonization 5. AMS resolved 6. Anemia & Thrombocytopenia P 1. continue iv vancomycin, for 5 days 2 wound culture from arm blister is negative so far Subjective ROS Limited/Unobtainable: No Constitutional: Reports: no symptoms Respiratory: Reports: no symptoms Cardiovascular: Reports: no symptoms Gastrointestinal/Abdominal: Reports: no symptoms Skin: Reports: other - no new blister Allergies: Coded Allergies: PENICILLINS (Verified Allergy, Unknown, 09/13/17) Objective Vital Signs Last 24 Hour Vital Signs Date Time Temp Pulse Resp B/P (MAP) Pulse Ox O2 Delivery O2 Flow Rate FiO2 09/18/17 09:45 63 118/71 09/18/17 08:00 97.7 63 18 118/71 98 Room Air 97.7 09/18/17 08:00 63 09/18/17 04:00 67 09/18/17 04:00 97.8 60 18 115/65 96 Room Air 97.8 09/18/17 00:00 60 09/18/17 00:00 97.7 62 20 114/72 94 Room Air 97.7 09/17/17 20:00 66 09/17/17 20:00 99.0 60 18 97/51 97 Room Air 99.0 09/17/17 16:00 63 09/17/17 16:00 97.6 62 18 114/86 98 Room Air 97.6 09/17/17 12:00 63 09/17/17 12:00 98.1 96 18 121/70 94 Room Air 98.1 Height (Feet): 5 Height (Inches): 10.00 Weight (Pounds): 190 General Appearance: no acute distress HEENT: mucous membranes moist Respiratory/Chest: lungs clear Cardiovascular: normal rate Abdomen: soft, non tender Extremities: other - edema of legs Skin: other - open blister on right arm Microbiology Date/Time Source Procedure Growth Status 09/17/17 13:52 Arm Right Gram Stain Pending Resulted 09/17/17 13:52 Arm Right Wound Culture - Preliminary NO GROWTH AFTER 24 HOURS Resulted Laboratory Tests Test 09/17/17 12:24 09/18/17 08:00 Vancomycin Level Trough 8.9 ug/mL (5.0-12.0) White Blood Count 5.4 K/UL (4.8-10.8) Red Blood Count 3.34 M/UL (4.70-6.10) L Hemoglobin 11.3 G/DL (14.2-18.0) L Hematocrit 33.9 % (42.0-52.0) L Mean Corpuscular Volume 101 FL (80-99) H Mean Corpuscular Hemoglobin 33.8 PG (27.0-31.0) H Mean Corpuscular Hemoglobin Concent 33.3 G/DL (32.0-36.0) Red Cell Distribution Width 16.1 % (11.6-14.8) H Platelet Count 96 K/UL (150-450) L Mean Platelet Volume 6.4 FL (6.5-10.1) L Neutrophils (%) (Auto) % (45.0-75.0) Lymphocytes (%) (Auto) % (20.0-45.0) Monocytes (%) (Auto) % (1.0-10.0) Eosinophils (%) (Auto) % (0.0-3.0) Basophils (%) (Auto) % (0.0-2.0) Differential Total Cells Counted 100 Neutrophils % (Manual) 46 % (45-75) Lymphocytes % (Manual) 34 % (20-45) Monocytes % (Manual) 7 % (1-10) Eosinophils % (Manual) 11 % (0-3) H Basophils % (Manual) 2 % (0-2) Band Neutrophils 0 % (0-8) Platelet Estimate Decreased L Platelet Morphology Normal Anisocytosis 1+ Macrocytosis 1+ Prothrombin Time 13.5 SEC (9.30-11.50) H Prothromb Time International Ratio 1.3 (0.9-1.1) H Sodium Level 135 MMOL/L (136-145) L Potassium Level 4.0 MMOL/L (3.5-5.1) Chloride Level 106 MMOL/L (98-107) Carbon Dioxide Level 25 MMOL/L (21-32) Anion Gap 4 mmol/L (5-15) L Blood Urea Nitrogen 14 mg/dL (7-18) Creatinine 1.0 MG/DL (0.55-1.30) Estimat Glomerular Filtration Rate > 60 mL/min (>60) Glucose Level 101 MG/DL (74-106) Calcium Level 8.2 MG/DL (8.5-10.1) L Total Bilirubin 2.6 MG/DL (0.2-1.0) H Direct Bilirubin 1.0 MG/DL (0.0-0.3) H Aspartate Amino Transf (AST/SGOT) 64 U/L (15-37) H Alanine Aminotransferase (ALT/SGPT) 28 U/L (12-78) Alkaline Phosphatase 119 U/L (46-116) H Ammonia 75 umol/L (11-32) H Total Protein 6.8 G/DL (6.4-8.2) Albumin 2.0 G/DL (3.4-5.0) L Globulin 4.8 g/dL Albumin/Globulin Ratio 0.4 (1.0-2.7) L Current Medications Medications (Trade) Dose Ordered Sig/Zia Route PRN Reason Start Time Stop Time Status Last Admin Dose Admin Dextrose/Sodium Chloride 1,000 ml @ 50 mls/hr Q20H IV 09/15/17 13:00 10/15/17 12:59 09/18/17 01:33 Lactulose (Cephulac) 20 gm THREE TIMES A DAY ORAL 09/18/17 13:00 10/18/17 12:59 Metoprolol Succinate (Toprol XL) 25 mg DAILY ORAL 09/15/17 09:00 10/15/17 08:59 09/18/17 09:45 Pantoprazole (Protonix) 40 mg DAILY ORAL 09/15/17 13:00 10/15/17 12:59 09/18/17 09:45 Quetiapine Fumarate (SEROquel) 25 mg Q6H PRN ORAL For Anxiety 09/14/17 15:00 10/14/17 14:59 Rifaximin (Xifaxan) 550 mg EVERY 12 HOURS ORAL 09/18/17 21:00 09/25/17 20:59 Vancomycin HCl (Vanco rx to dose) 1 ea DAILY PRN MISC Per rx protocol 09/14/17 11:30 10/14/17 11:29 Vancomycin HCl 1 gm/Dextrose 275 ml @ 183.708 mls/hr Q12H IVPB 09/18/17 04:00 09/23/17 03:59 09/18/17 03:43 Von Hutchison MD Sep 18, 2017 11:40
[2017-09-18 12:00] VITALS: BP 119/79
[2017-09-18] MEDS ORDERED: Lactulose 20gm/30ml UDC ORAL SCH (13:00)
--- NOTE | 2017-09-18 13:17 | General Progress Note ---
Assessment/Plan Status: stable Assessment/Plan # Anemia of chronic disease. --> Closely monitor for improvement. --> anemia w/u has been reviewed, shows ACD, no iron deficiency, will trend daily --> hgb goal >7 # Thrombocytopenia, acute onset, likely related to cirrhosis --> hepatitis panel, human immunodeficiency virus results pending --> plt goal >100 --> cont abx --> 09/14 abd US shows Cholelithiasis and trace gallbladder sludge. Poor assessment of the wall thickness. Negative sonographic Morrison sign. # Leukocytosis. --> cont abx --> monitor for improvement --> wbc improved # Upper ext swelling --> DUPLEX of the upper ext ordered # History of alcohol abuse. # Altered mental status, has been seen by Neurology. # Encephalopathy # Elevated troponin. # Coagulopathy Subjective Date patient seen: Sep 18, 2017 ROS Limited/Unobtainable: Yes Allergies: Coded Allergies: PENICILLINS (Verified Allergy, Unknown, 09/13/17) All Systems: reviewed and negative except above Subjective Pt is stable and medically cleared for dc to snf. Vitals are stable. Objective Last 24 Hour Vital Signs Date Time Temp Pulse Resp B/P (MAP) Pulse Ox O2 Delivery O2 Flow Rate FiO2 09/18/17 09:45 63 118/71 09/18/17 08:00 97.7 63 18 118/71 98 Room Air 97.7 09/18/17 08:00 63 09/18/17 04:00 67 09/18/17 04:00 97.8 60 18 115/65 96 Room Air 97.8 09/18/17 00:00 60 09/18/17 00:00 97.7 62 20 114/72 94 Room Air 97.7 09/17/17 20:00 66 09/17/17 20:00 99.0 60 18 97/51 97 Room Air 99.0 09/17/17 16:00 63 09/17/17 16:00 97.6 62 18 114/86 98 Room Air 97.6 Intake and Output 09/17/17 09/18/17 19:00 07:00 Intake Total 770 ml 1248.000 ml Output Total 700 ml 750 ml Balance 70 ml 498.000 ml Intake Oral 720 ml 500 ml IV Total 50 ml 748.000 ml Output Urine Total 700 ml 750 ml # Bowel Movements 13 Laboratory Tests 09/18/17 08:00: White Blood Count 5.4, Red Blood Count 3.34L, Hemoglobin 11.3L, Hematocrit 33.9L , Mean Corpuscular Volume 101H, Mean Corpuscular Hemoglobin 33.8H, Mean Corpuscular Hemoglobin Concent 33.3, Red Cell Distribution Width 16.1H, Platelet Count 96L, Mean Platelet Volume 6.4L, Neutrophils (%) (Auto) , Lymphocytes (%) (Auto) , Monocytes (%) (Auto) , Eosinophils (%) (Auto) , Basophils (%) (Auto) , Differential Total Cells Counted 100, Neutrophils % ( Manual) 46, Lymphocytes % (Manual) 34, Monocytes % (Manual) 7, Eosinophils % ( Manual) 11H, Basophils % (Manual) 2, Band Neutrophils 0, Platelet Estimate DecreasedL, Platelet Morphology Normal, Anisocytosis 1+, Macrocytosis 1+, Prothrombin Time 13.5H, Prothromb Time International Ratio 1.3H, Sodium Level 135L, Potassium Level 4.0, Chloride Level 106, Carbon Dioxide Level 25, Anion Gap 4L, Blood Urea Nitrogen 14, Creatinine 1.0, Estimat Glomerular Filtration Rate > 60, Glucose Level 101, Calcium Level 8.2L, Total Bilirubin 2.6H, Direct Bilirubin 1.0H, Aspartate Amino Transf (AST/SGOT) 64H, Alanine Aminotransferase (ALT/SGPT) 28, Alkaline Phosphatase 119H, Ammonia 75H, Total Protein 6.8, Albumin 2.0L, Globulin 4.8, Albumin/Globulin Ratio 0.4L Height (Feet): 5 Height (Inches): 10.00 Weight (Pounds): 190 General Appearance: no apparent distress, alert Neck: normal alignment Cardiovascular: normal peripheral pulses Respiratory/Chest: no respiratory distress Abdomen: no mass Yung Mishra MD Sep 18, 2017 13:17
--- NOTE | 2017-09-18 13:37 | GI Progress Note ---
Assessment/Plan Problems: (1) Elevated troponin ICD Codes: R74.8 - Abnormal levels of other serum enzymes SNOMED: 202509326, 007800913, [id number] (2) Altered level of consciousness ICD Codes: R40.4 - Transient alteration of awareness SNOMED: 9808572 (3) Encephalopathy acute ICD Codes: G93.40 - Encephalopathy, unspecified SNOMED: 92450442, 657128205 (4) Cirrhosis ICD Codes: K74.60 - Unspecified cirrhosis of liver SNOMED: 31827070, 609732454 Status: stable Status Narrative Discussed with Dr. Woody. Assessment/Plan Assessment - cirrhosis - portal HTN - resolved encephalopathy - Aortic aneurysm / graft - elevated lactic acid - elevated ammonia Recommendations - push PO - follow labs - cardiology f/u - Check HBV, HCV - Check AFP - lactulose + xifaxan The patient was seen and examined at bedside and all new and available data was reviewed in the patients chart. I agree with the above findings, impression and plan. (Patient seen earlier today. Signature stamp does not reflect patient encounter time.). - Gabriel Woody MD Subjective Gastrointestinal/Abdominal: Reports: no symptoms Objective Last 24 Hour Vital Signs Date Time Temp Pulse Resp B/P (MAP) Pulse Ox O2 Delivery O2 Flow Rate FiO2 09/18/17 09:45 63 118/71 09/18/17 08:00 97.7 63 18 118/71 98 Room Air 97.7 09/18/17 08:00 63 09/18/17 04:00 67 09/18/17 04:00 97.8 60 18 115/65 96 Room Air 97.8 09/18/17 00:00 60 09/18/17 00:00 97.7 62 20 114/72 94 Room Air 97.7 09/17/17 20:00 66 09/17/17 20:00 99.0 60 18 97/51 97 Room Air 99.0 09/17/17 16:00 63 09/17/17 16:00 97.6 62 18 114/86 98 Room Air 97.6 Intake and Output 09/17/17 09/18/17 19:00 07:00 Intake Total 770 ml 1248.000 ml Output Total 700 ml 750 ml Balance 70 ml 498.000 ml Intake Oral 720 ml 500 ml IV Total 50 ml 748.000 ml Output Urine Total 700 ml 750 ml # Bowel Movements 13 Laboratory Tests Test 09/18/17 08:00 White Blood Count 5.4 K/UL (4.8-10.8) Red Blood Count 3.34 M/UL (4.70-6.10) L Hemoglobin 11.3 G/DL (14.2-18.0) L Hematocrit 33.9 % (42.0-52.0) L Mean Corpuscular Volume 101 FL (80-99) H Mean Corpuscular Hemoglobin 33.8 PG (27.0-31.0) H Mean Corpuscular Hemoglobin Concent 33.3 G/DL (32.0-36.0) Red Cell Distribution Width 16.1 % (11.6-14.8) H Platelet Count 96 K/UL (150-450) L Mean Platelet Volume 6.4 FL (6.5-10.1) L Neutrophils (%) (Auto) % (45.0-75.0) Lymphocytes (%) (Auto) % (20.0-45.0) Monocytes (%) (Auto) % (1.0-10.0) Eosinophils (%) (Auto) % (0.0-3.0) Basophils (%) (Auto) % (0.0-2.0) Differential Total Cells Counted 100 Neutrophils % (Manual) 46 % (45-75) Lymphocytes % (Manual) 34 % (20-45) Monocytes % (Manual) 7 % (1-10) Eosinophils % (Manual) 11 % (0-3) H Basophils % (Manual) 2 % (0-2) Band Neutrophils 0 % (0-8) Platelet Estimate Decreased L Platelet Morphology Normal Anisocytosis 1+ Macrocytosis 1+ Prothrombin Time 13.5 SEC (9.30-11.50) H Prothromb Time International Ratio 1.3 (0.9-1.1) H Sodium Level 135 MMOL/L (136-145) L Potassium Level 4.0 MMOL/L (3.5-5.1) Chloride Level 106 MMOL/L (98-107) Carbon Dioxide Level 25 MMOL/L (21-32) Anion Gap 4 mmol/L (5-15) L Blood Urea Nitrogen 14 mg/dL (7-18) Creatinine 1.0 MG/DL (0.55-1.30) Estimat Glomerular Filtration Rate > 60 mL/min (>60) Glucose Level 101 MG/DL (74-106) Calcium Level 8.2 MG/DL (8.5-10.1) L Total Bilirubin 2.6 MG/DL (0.2-1.0) H Direct Bilirubin 1.0 MG/DL (0.0-0.3) H Aspartate Amino Transf (AST/SGOT) 64 U/L (15-37) H Alanine Aminotransferase (ALT/SGPT) 28 U/L (12-78) Alkaline Phosphatase 119 U/L (46-116) H Ammonia 75 umol/L (11-32) H Total Protein 6.8 G/DL (6.4-8.2) Albumin 2.0 G/DL (3.4-5.0) L Globulin 4.8 g/dL Albumin/Globulin Ratio 0.4 (1.0-2.7) L Microbiology Date/Time Source Procedure Growth Status 09/17/17 13:52 Arm Right Gram Stain Pending Resulted 09/17/17 13:52 Arm Right Wound Culture - Preliminary NO GROWTH AFTER 24 HOURS Resulted Height (Feet): 5 Height (Inches): 10.00 Weight (Pounds): 190 General Appearance: WD/WN, no apparent distress, alert Cardiovascular: normal rate Respiratory/Chest: normal breath sounds, no respiratory distress Abdominal Exam: normal bowel sounds, non tender, soft Extremities: non-tender Valentin Price GEL COATER Sep 18, 2017 13:37
--- NOTE | 2017-09-18 15:33 | Neurology Progress Note ---
Interim History Interim History Interim History Mr. Richard feels well. The mind is clear. His memory is normal. The right leg is less red, less painful and less swollen. His right upper arm blister that was lanced is less painful. He was able to sleep well last night. He walked a little with the therapist today. He denies any new neurologic symptoms. He is eager to go home and not to a jail. Review of Systems Neuro Review of Systems Benign. Objective Physical Exam Last Vital Signs Date Time Temp Pulse Resp B/P (MAP) Pulse Ox O2 Delivery O2 Flow Rate FiO2 09/18/17 12:00 98.6 69 18 119/79 97 Room Air 98.6 Laboratory Tests Test 09/18/17 08:00 White Blood Count 5.4 K/UL (4.8-10.8) Red Blood Count 3.34 M/UL (4.70-6.10) L Hemoglobin 11.3 G/DL (14.2-18.0) L Hematocrit 33.9 % (42.0-52.0) L Mean Corpuscular Volume 101 FL (80-99) H Mean Corpuscular Hemoglobin 33.8 PG (27.0-31.0) H Mean Corpuscular Hemoglobin Concent 33.3 G/DL (32.0-36.0) Red Cell Distribution Width 16.1 % (11.6-14.8) H Platelet Count 96 K/UL (150-450) L Mean Platelet Volume 6.4 FL (6.5-10.1) L Neutrophils (%) (Auto) % (45.0-75.0) Lymphocytes (%) (Auto) % (20.0-45.0) Monocytes (%) (Auto) % (1.0-10.0) Eosinophils (%) (Auto) % (0.0-3.0) Basophils (%) (Auto) % (0.0-2.0) Differential Total Cells Counted 100 Neutrophils % (Manual) 46 % (45-75) Lymphocytes % (Manual) 34 % (20-45) Monocytes % (Manual) 7 % (1-10) Eosinophils % (Manual) 11 % (0-3) H Basophils % (Manual) 2 % (0-2) Band Neutrophils 0 % (0-8) Platelet Estimate Decreased L Platelet Morphology Normal Anisocytosis 1+ Macrocytosis 1+ Prothrombin Time 13.5 SEC (9.30-11.50) H Prothromb Time International Ratio 1.3 (0.9-1.1) H Sodium Level 135 MMOL/L (136-145) L Potassium Level 4.0 MMOL/L (3.5-5.1) Chloride Level 106 MMOL/L (98-107) Carbon Dioxide Level 25 MMOL/L (21-32) Anion Gap 4 mmol/L (5-15) L Blood Urea Nitrogen 14 mg/dL (7-18) Creatinine 1.0 MG/DL (0.55-1.30) Estimat Glomerular Filtration Rate > 60 mL/min (>60) Glucose Level 101 MG/DL (74-106) Calcium Level 8.2 MG/DL (8.5-10.1) L Total Bilirubin 2.6 MG/DL (0.2-1.0) H Direct Bilirubin 1.0 MG/DL (0.0-0.3) H Aspartate Amino Transf (AST/SGOT) 64 U/L (15-37) H Alanine Aminotransferase (ALT/SGPT) 28 U/L (12-78) Alkaline Phosphatase 119 U/L (46-116) H Ammonia 75 umol/L (11-32) H Total Protein 6.8 G/DL (6.4-8.2) Albumin 2.0 G/DL (3.4-5.0) L Globulin 4.8 g/dL Albumin/Globulin Ratio 0.4 (1.0-2.7) L Neurologic Exam Objective PHYSICAL EXAMINATION: GENERAL: He is a well-developed, well-nourished, pleasant gentleman, lying in bed, in no acute distress. HEAD: Normocephalic and atraumatic. EENT: Examination benign. NECK: No neck rigidity was observed. NEUROLOGIC EXAMINATION: MENTAL STATUS EXAMINATION: He was awake and alert. He was oriented to person, place, and time. He was able to recall 3/3 words immediately, and in 1 and 3 minutes. He was able to remember presidents, Trump through [employer] senior. His mathematical skills were good. His visuospatial function was preserved. SPEECH: He had no dysarthria. LANGUAGE: He had a mild anomia for low-frequency words. CRANIAL NERVE EXAMINATION: II: The visual freitas were intact to confrontation testing. III, IV & : External ocular movements were full and the pupils 3 mm in diameter, equal, round, regular, and reactive to light. V: He had normal facial sensations, and the temporales, masseters, and pterygoids functioned normally. VII: He had normal facial expressions and no facial asymmetry. VIII: He was able to hear well bilaterally and had no nystagmus. IX: The palate moved symmetrically on phonation. X: He had no hoarseness of voice. X: The sternocleidomastoids and trapezii functioned normally. XII: The tongue was in the midline without any fasciculations or atrophy. MOTOR SYSTEM: The tone was normal in all four extremities. Examination of muscle mass revealed no focal wasting. Examination of power revealed G 5/5 power in all muscle groups tested. SENSORY EXAMINATION: He had intact sensations to pinprick, light touch, and graphesthesia. COORDINATION: He performed well on [id number]-[id number] and rmlv-ru-[id number] testing. REFLEXES: Trace+ and bilaterally symmetrical at the biceps, triceps, brachioradialis, and knees, 0 at both ankles. The plantar responses were flexor bilaterally. STANCE: He stood up with support. GAIT: He was able to take a few steps with support. Impression/Recommendations Diagnostic Impression 1. Mr. Gerry Richard is a 72-year-old, left-handed, gentleman, who does have a past history of hypertension, dyslipidemia, aortic aneurysm repair, neuropathy, chronic pain syndrome involving his lower extremities, gastroesophageal reflux disease and cirrhosis of the liver who was hospitalized for an alteration in his mental state. For the last few days, he had noticed that his right leg had become red, swollen, and at times quite painful. Since he has been in the hospital, he feels better. 2. He feels well. The mind is clear. His memory is normal. The right leg is less red, less painful and less swollen. His right upper arm blister that was lanced is less painful. He was able to sleep well last night. He walked a little with the therapist today. He denies any new neurologic symptoms. He is eager to go home and not to a jail. 3. On neurological examination, at this time, he is fully oriented. His recent and remote memory has normalized. He still has mild problems with higher cognitive function. He also has diminished deep tendon reflexes with loss of ankle jerks. 4. The CT scan of the brain without contrast reveals atrophy and deep white matter changes, but no acute pathology. 5. Laboratory data obtained thus far revealed that when he came in, his WBC count was elevated to 11,400. He also was anemic with a hemoglobin of 11.9 G. His chemistry panel revealed that his blood glucose was elevated to 122. His total bilirubin was elevated to 4.5. His alkaline phosphate was elevated to 124 , his AST was elevated to 72, his BNP was elevated at 753, his troponin is elevated to 0.173, and his albumin was low at 2.2. His urinalysis revealed 1+ leukocyte esterase, 5-10 RBCs, and 0-2 WBCs per high-power field with a few bacteria. His urine toxicology screen was benign. His B12 level and folate levels are normal. 6. The patient's history and neurological examination are most compatible with an acute encephalopathic process, most probably of a toxic/metabolic nature related to his acute infectious process due to right lower extremity cellulitis , and in addition a mild urinary tract infection. 7. His encephalopathy has resolved. Recommendations 1. Continue present management. 2. Continue to try to correct all toxic metabolic imbalances. 3. Increase activity as tolerated. Priya Fraser M.D., M.S.P.H. PRIYA FRASER Sep 18, 2017 15:33
[2017-09-18] MEDS ORDERED: D5NS 1000ml IV ONE (16:02)
[2017-09-18] MEDS ORDERED: Tubing IV Secondary IV ONE (16:02)
--- NOTE | 2017-09-18 16:22 | Cardiac Electrophysiology PN ---
Assessment/Plan Assessment/Plan 1. Troponin elevation 0.173 and 0.07. Denies any chest pain BNP was 763. Echocardiogram EF 55% Continue Toprol 25 daily and avoid aspirin in view of thrombocytopenia 2. Aortic aneurysm s/p stent graft. 3. Cirrhosis of liver and esophageal varices based on the CT scan. Further evaluation by Dr. Woody. 4. Evaluate liver function tests. 5. Elevated lactic acid that is leveling down. 6. Right leg cellulitis. On Vancomycin Dr Kianna LEDESMA RN DC planning today Subjective Subjective No CP or SOB and no arrhythmias. Getting ready to be discharged. Objective Last 24 Hour Vital Signs Date Time Temp Pulse Resp B/P (MAP) Pulse Ox O2 Delivery O2 Flow Rate FiO2 09/18/17 12:00 98.6 69 18 119/79 97 Room Air 98.6 09/18/17 12:00 62 09/18/17 09:45 63 118/71 09/18/17 08:00 97.7 63 18 118/71 98 Room Air 97.7 09/18/17 08:00 63 09/18/17 04:00 67 09/18/17 04:00 97.8 60 18 115/65 96 Room Air 97.8 09/18/17 00:00 60 09/18/17 00:00 97.7 62 20 114/72 94 Room Air 97.7 09/17/17 20:00 66 09/17/17 20:00 99.0 60 18 97/51 97 Room Air 99.0 Intake and Output 09/17/17 09/18/17 19:00 07:00 Intake Total 770 ml 1248.000 ml Output Total 700 ml 750 ml Balance 70 ml 498.000 ml Intake Oral 720 ml 500 ml IV Total 50 ml 748.000 ml Output Urine Total 700 ml 750 ml # Bowel Movements 13 Laboratory Tests Test 09/18/17 08:00 White Blood Count 5.4 K/UL (4.8-10.8) Red Blood Count 3.34 M/UL (4.70-6.10) L Hemoglobin 11.3 G/DL (14.2-18.0) L Hematocrit 33.9 % (42.0-52.0) L Mean Corpuscular Volume 101 FL (80-99) H Mean Corpuscular Hemoglobin 33.8 PG (27.0-31.0) H Mean Corpuscular Hemoglobin Concent 33.3 G/DL (32.0-36.0) Red Cell Distribution Width 16.1 % (11.6-14.8) H Platelet Count 96 K/UL (150-450) L Mean Platelet Volume 6.4 FL (6.5-10.1) L Neutrophils (%) (Auto) % (45.0-75.0) Lymphocytes (%) (Auto) % (20.0-45.0) Monocytes (%) (Auto) % (1.0-10.0) Eosinophils (%) (Auto) % (0.0-3.0) Basophils (%) (Auto) % (0.0-2.0) Differential Total Cells Counted 100 Neutrophils % (Manual) 46 % (45-75) Lymphocytes % (Manual) 34 % (20-45) Monocytes % (Manual) 7 % (1-10) Eosinophils % (Manual) 11 % (0-3) H Basophils % (Manual) 2 % (0-2) Band Neutrophils 0 % (0-8) Platelet Estimate Decreased L Platelet Morphology Normal Anisocytosis 1+ Macrocytosis 1+ Prothrombin Time 13.5 SEC (9.30-11.50) H Prothromb Time International Ratio 1.3 (0.9-1.1) H Sodium Level 135 MMOL/L (136-145) L Potassium Level 4.0 MMOL/L (3.5-5.1) Chloride Level 106 MMOL/L (98-107) Carbon Dioxide Level 25 MMOL/L (21-32) Anion Gap 4 mmol/L (5-15) L Blood Urea Nitrogen 14 mg/dL (7-18) Creatinine 1.0 MG/DL (0.55-1.30) Estimat Glomerular Filtration Rate > 60 mL/min (>60) Glucose Level 101 MG/DL (74-106) Calcium Level 8.2 MG/DL (8.5-10.1) L Total Bilirubin 2.6 MG/DL (0.2-1.0) H Direct Bilirubin 1.0 MG/DL (0.0-0.3) H Aspartate Amino Transf (AST/SGOT) 64 U/L (15-37) H Alanine Aminotransferase (ALT/SGPT) 28 U/L (12-78) Alkaline Phosphatase 119 U/L (46-116) H Ammonia 75 umol/L (11-32) H Total Protein 6.8 G/DL (6.4-8.2) Albumin 2.0 G/DL (3.4-5.0) L Globulin 4.8 g/dL Albumin/Globulin Ratio 0.4 (1.0-2.7) L Microbiology Date/Time Source Procedure Growth Status 09/17/17 13:52 Arm Right Gram Stain - Final Resulted 09/17/17 13:52 Arm Right Wound Culture - Preliminary NO GROWTH AFTER 24 HOURS Resulted Objective HEAD AND NECK: No JVD LUNGS: Clear. CARDIOVASCULAR: Regular S1 and S2 with no gallop or murmur. ABDOMEN: Soft and obese. EXTREMITIES: No pitting edema.Right thigh cellulitis better Evan Dolan MD Sep 18, 2017 16:22
--- NOTE | 2017-09-18 16:38 | General Progress Note ---
Assessment/Plan Assessment/Plan Encephalopathy improving Anxiety d/o -Sroquel prn Subjective Date patient seen: Sep 18, 2017 Neurologic/Psychiatric: Reports: anxiety, depressed Allergies: Coded Allergies: PENICILLINS (Verified Allergy, Unknown, 09/13/17) Subjective the pt is forgetful and anxious. the pt is worried about discharge Objective Last 24 Hour Vital Signs Date Time Temp Pulse Resp B/P (MAP) Pulse Ox O2 Delivery O2 Flow Rate FiO2 09/18/17 12:00 98.6 69 18 119/79 97 Room Air 98.6 09/18/17 12:00 62 09/18/17 09:45 63 118/71 09/18/17 08:00 97.7 63 18 118/71 98 Room Air 97.7 09/18/17 08:00 63 09/18/17 04:00 67 09/18/17 04:00 97.8 60 18 115/65 96 Room Air 97.8 09/18/17 00:00 60 09/18/17 00:00 97.7 62 20 114/72 94 Room Air 97.7 09/17/17 20:00 66 09/17/17 20:00 99.0 60 18 97/51 97 Room Air 99.0 Intake and Output 09/17/17 09/18/17 19:00 07:00 Intake Total 770 ml 1248.000 ml Output Total 700 ml 750 ml Balance 70 ml 498.000 ml Intake Oral 720 ml 500 ml IV Total 50 ml 748.000 ml Output Urine Total 700 ml 750 ml # Bowel Movements 13 Laboratory Tests 09/18/17 08:00: White Blood Count 5.4, Red Blood Count 3.34L, Hemoglobin 11.3L, Hematocrit 33.9L , Mean Corpuscular Volume 101H, Mean Corpuscular Hemoglobin 33.8H, Mean Corpuscular Hemoglobin Concent 33.3, Red Cell Distribution Width 16.1H, Platelet Count 96L, Mean Platelet Volume 6.4L, Neutrophils (%) (Auto) , Lymphocytes (%) (Auto) , Monocytes (%) (Auto) , Eosinophils (%) (Auto) , Basophils (%) (Auto) , Differential Total Cells Counted 100, Neutrophils % ( Manual) 46, Lymphocytes % (Manual) 34, Monocytes % (Manual) 7, Eosinophils % ( Manual) 11H, Basophils % (Manual) 2, Band Neutrophils 0, Platelet Estimate DecreasedL, Platelet Morphology Normal, Anisocytosis 1+, Macrocytosis 1+, Prothrombin Time 13.5H, Prothromb Time International Ratio 1.3H, Sodium Level 135L, Potassium Level 4.0, Chloride Level 106, Carbon Dioxide Level 25, Anion Gap 4L, Blood Urea Nitrogen 14, Creatinine 1.0, Estimat Glomerular Filtration Rate > 60, Glucose Level 101, Calcium Level 8.2L, Total Bilirubin 2.6H, Direct Bilirubin 1.0H, Aspartate Amino Transf (AST/SGOT) 64H, Alanine Aminotransferase (ALT/SGPT) 28, Alkaline Phosphatase 119H, Ammonia 75H, Total Protein 6.8, Albumin 2.0L, Globulin 4.8, Albumin/Globulin Ratio 0.4L Height (Feet): 5 Height (Inches): 10.00 Weight (Pounds): 190 Yusuf Cisneros MD Sep 18, 2017 16:38
--- NOTE | 2017-09-20 10:23 | Discharge Summary ---
Discharge Summary Hospital Course Date of Admission Sep 13, 2017 at 20:05 Date of Discharge Sep 18, 2017 at 16:03 Admitting Diagnosis ALTERED MENTAL STATUS HPI Gerry Richard is a 72 year old male who was admitted on Sep 13, 2017 at 20:05 for Altered Mental Status Hospital Course dc summary #[id number] Discharge Medications Continued Medications: Atorvastatin Calcium* (Atorvastatin Calcium*) 40 Mg Tablet 40 MG ORAL BEDTIME, TAB (This prescription has been renewed) Fluticasone Propionate* (Fluticasone Propionate*) 16 Gm Melfa.susp 1 SPRAY NASAL TWICE A DAY, #16 GM (This prescription has been renewed) Gabapentin* (Gabapentin*) 600 Mg Tablet 600 MG ORAL THREE TIMES A DAY, TAB (This prescription has been renewed) Lisinopril* (Lisinopril*) 10 Mg Tablet 20 MG ORAL DAILY, TAB (This prescription has been renewed) Omeprazole (Omeprazole) 20 Mg Capsule.dr 20 MG ORAL DAILY, CAP (This prescription has been renewed) Ondansetron* (Zofran*) 4 Mg Tablet 4 MG ORAL Q6H PRN for Nausea & Vomiting, TAB (This prescription has been renewed ) Oxycodone Hcl* (Oxycodone Hcl*) 5 Mg Capsule 5 MG ORAL Q8HR PRN for For Pain, #30 CAP 0 Refills (This prescription has been renewed) Polyethylene Glycol 3350* (Polyethylene Glycol 3350*) 17 Gm Powd.pack 17 GM ORAL DAILY PRN for Constipation, PACKET Discharge Condition Upon Discharge: stable Discharge Disposition Patient was discharged to SNF/Subacute Facility(03) Discharge Instructions Discharge Instructions Special Instructions I have been assigned to complete a D/C Summary on this account. I was not involved in the patient management Pippa Arteaga NP Sep 20, 2017 10:23
--- NOTE | 2017-09-20 22:30 | Discharge Summary 2 SIG ---
DATE OF ADMISSION: 09/13/2017 DATE OF DISCHARGE: 09/18/2017 REASON FOR ADMISSION: This is a 72-year-old male, resident of assisted living, was brought for altered mental status. The patient has a past medical history significant for hypertension and hyperlipidemia. Upon evaluation in the emergency department, the patient was found to be febrile at 103.3, tachycardic with heart rate 116, and hypoxemic, pulse oximetry on room air was 89%. Chest x-ray revealed cardiomegaly, but no acute cardiopulmonary pathology. Laboratory workup revealed elevated troponin 0.173, elevated AST 72, lactic acid 7.2, BUN 18, and creatinine 1.2. Platelets 91,000, WBC 11.4, hemoglobin 11.9, and hematocrit 34.8. CTA revealed no evidence of pulmonary emboli. Urine toxicology screen was negative. ADMITTING DIAGNOSES: The patient was admitted with diagnoses of, 1. Acute encephalopathy. 2. Elevated troponin. 3. Acute febrile illness. 4. Cirrhosis. INR was 1.5. CONSULTANTS: 1. Evan Dolan M.D., Fire Pot Operator. 2. Aguila Barrientos M.D., Box Office Attendant. 3. Von Hutchison M.D., Infectious Disease specialist. 4. Gabriel Woody M.D., GI specialist. 5. Yung Mishra M.D., Irrigation Laborer. 6. Shane Parson M.D., Neurologist. 7. Yusuf Cisneros M.D., Psychiatrist. HOSPITAL COURSE: The patient was admitted. CT of the head revealed no evidence of acute intracranial pathology. Infectious Disease doctor seen and evaluated the patient. Urinalysis was negative for evidence of urinary tract infection. However, the patient was found to have evidence of right lower extremity cellulitis. The patient was started on empiric antibiotics. Blood cultures were negative. Leukocytosis resolved. Wound culture of the right arm was negative. Fire Pot Operator closely followed for elevated troponin. Initial troponin 0.173, the second one 0.079, and the last one is negative. The patient did not complain of the chest pain. Initially, on supplemental oxygen and then was able to wean to oxygen via nasal cannula with stable pulse oximetry. Echocardiogram revealed preserved ejection fraction of 55% and evidence of significant diastolic dysfunction. ProBNP 763. Fire Pot Operator recommended continued beta-kylie, metoprolol 25 mg daily, and avoid aspirin in view of thrombocytopenia. The patient also had history of aortic aneurysm status post stent graft. Hemoglobin and hematocrit were closely monitored. Anemia workup was consistent with anemia of chronic disease. Irrigation Laborer closely followed. No need for transfusion. Hemoglobin and hematocrit remained at the baseline. Prior to discharge, hemoglobin 11.3 and hematocrit 33.9. Goal to keep hemoglobin above 7. Thrombocytopenia was likely secondary to cirrhosis. Platelets remained at the baseline. Prior to discharge, platelets 96,000. HIV test and hepatitis pathology as well as the RPR were all negative. Irrigation Laborer recommended close monitoring. GI specialist closely followed. Venous duplex of bilateral lower extremity revealed no evidence of acute DVT. Abdominal ultrasound revealed cholelithiasis and trace gallbladder sludge, but negative sonographic Morrison sign. Liver parameters were closely monitored. AST trending down. ALT within normal limits. Total bilirubin from 4.5 down to 2.6 and direct bilirubin from 1.4 down to 1.0. Per GI specialist, the patient had cirrhosis and portal hypertension. Initially, ammonia was 75 on 09/18/2017. The patient was started on lactulose and rifaximin. Continue close monitoring of liver enzymes and counts at the facility. Oral fluids were pushed. Neurologist closely followed. According to neurologist, altered level status was likely due to acute toxic metabolic encephalopathy secondary to infectious process. He recommended to continue current treatment with antibiotic and observe closely. Mental status improved as infection cleared. Box Office Attendant closely followed. Urine studies were done. Minimal total protein in 24-hours urine. Gastric support provided. Renal parameters and electrolytes were closely monitored. Electrolytes corrected as needed. Nephrotoxics avoided. Box Office Attendant cleared the patient for discharge. Psychiatrist seen and evaluated the patient, diagnosed the patient with encephalopathy and anxiety, and started the patient on Seroquel. The patient clinically improved and was stable, but required [facility] facility for discharge, unable to go to assisted living. Placement was arranged at the [facility]. The patient was stable for discharge and cleared by all consultants. FINAL DIAGNOSES: 1. Acute toxic metabolic encephalopathy likely secondary to infectious process. 2. Right lower extremity cellulitis. 3. Elevated troponin, resolved. 4. Aortic aneurysm status post stent graft. 5. Liver cirrhosis. 6. Portal hypertension. 7. Transaminitis. 8. Anemia of chronic disease. 9. Thrombocytopenia. 10. Hypoalbuminemia. 11. Coagulopathy. Of note, coagulopathy, hypoalbuminemia, thrombocytopenia, and elevated LFTs were all likely secondary to cirrhosis. The patient requires close monitoring at the facility. DISCHARGE MEDICATIONS: List of medication was sent to accepting facility. See medication reconciliation list. DISCHARGE INSTRUCTIONS: The patient was discharged to [facility] facility. FOLLOWUP: Follow up with medical doctor at the facility. Julio C Ward M.D. I have been assigned to dictate discharge summary on this account and I was not involved in the patient's management. Pippa [facility] N.PSeven DR: LILY JOB#: [id number] CC:
== END 2017-09-18 16:03 | DRG 871 ==
LOC: EMR 19:35 → 2E 20:05 → EDBEDREQ 09-14 02:04 → 2E 09-14 04:21
DX: A41.9 Sepsis, unspecified organism (principal); G92 Toxic encephalopathy; D68.4 Acquired coagulation factor deficiency; L03.115 Cellulitis of right lower limb; K76.6 Portal hypertension; K74.60 Unspecified cirrhosis of liver; Z88.0 Allergy status to penicillin; E78.5 Hyperlipidemia, unspecified; G62.9 Polyneuropathy, unspecified; K21.9 Gastro-esophageal reflux disease without esophagitis; G89.4 Chronic pain syndrome; M79.605 Pain in left leg; M79.604 Pain in right leg; R74.8 Abnormal levels of other serum enzymes; E88.09 Other disorders of plasma-protein metabolism, not elsewhere classified; D63.8 Anemia in other chronic diseases classified elsewhere; D69.6 Thrombocytopenia, unspecified; Z22.322 Carrier or suspected carrier of Methicillin resistant Staphylococcus aureus; F41.9 Anxiety disorder, unspecified
CPT/HCPCS: 36415; 70450; 71045; 71260; 74177; 76700; 80053; 80061; 80202; 80307; 80329; 81003; 81050; 82105; 82140; 82248; 82306; 82533; 82550; 82607; 82728; 82746; 83036; 83540; 83550; 83605; 83735; 83880; 84100; 84156; 84300; 84484; 84550; 85007; 85025; 85610; 85730; 86140; 86592; 86703; 86705; 86709; 86803; 87040; 87070; 87081; 87205; 87340; 93005; 93306; 93970; 99285